=== PATIENT | male | born 1945 | race Caucasian/White ===

== ENCOUNTER 2019-12-30 10:30 | Outpatient (CLI) | payer MEDICARE, SELFPAY ==
--- NOTE | ~2019-12-30 | US_ITS ---
US scrotum doppler INDICATION: Disorder of the scrotum. Palpable lump on testicle for 40 years increasing in size for 6 months. Previous bursectomy. TECHNIQUE: Testicular sonogram utilizing grayscale and color Doppler FINDINGS: The testes are normal in size and appearance. No focal lesions are seen. The right testes measures 4.4 x 2.2 x 3.3 centimeters, and the left testis measures 4.6 x 1.9 x 3 cm. There is normal vascular flow to both testes. The right and left epididymides appear normal. There are bilateral varicoceles. There is a cyst superior to the left epididymis corresponding to the area of palpable concern measuring 2.7 x 1.8 x 1.9 cm, possibly epididymal in origin. IMPRESSION: 1. Bilateral varicoceles. 2: 2.7 cm cyst superior to the left epididymis corresponding to the palpable finding, possibly epidi dymal in origin. Reviewed, dictated and finalized at location A. IMPRESSION: 1. Bilateral varicoceles. 2: 2.7 cm cyst superior to the left epididymis corresponding to the palpable f inding, possibly epididymal in origin.
== END 2019-12-30 10:31 | disposition home or self-care (01) ==
PROVIDERS: PCP Internal Medicine; Visit Provider Internal Medicine
DX: N49.2 Inflammatory disorders of scrotum (principal); I86.1 Scrotal varices; N50.3 Cyst of epididymis; D29.4 Benign neoplasm of scrotum; N50.89 Other specified disorders of the male genital organs
CPT/HCPCS: 76870; 93976

== ENCOUNTER 2021-03-22 15:28 | Outpatient (CLI) | payer MEDICARE, SELFPAY ==
--- NOTE | ~2021-03-22 | XR_ITS ---
XR ankle LT min 3V DATE: 03/22/2021 15:47 INDICATION: Left ankle pain TECHNIQUE: 4 views COMPARISON: 11/15/2016 left ankle FINDINGS: Prominent plantar calcaneal enthesopathy. Minimal posterior calcaneal enthesopathy. There is soft tissue swelling of the ankle, greater laterally. No fracture or dislocation of the ankle or disruption of the ankle mortise. No periosteal reaction or bone destruction. IMPRESSION: Soft tissue swelling; no fracture or dislocation or bone destruction Plantar and minimal posterior calcaneal enthesopathy Reviewed, dictated and finalized at location A. IMPRESSION: Soft tissue swelling; no fracture or dislocation or bone destructio n Plantar and minimal posterior calcaneal enthesopathy
== END 2021-03-22 15:29 | disposition home or self-care (01) ==
LOC: ANHIMG 15:33
PROVIDERS: PCP Internal Medicine; Visit Provider Clinical Nurse Specialist
DX: M25.572 Pain in left ankle and joints of left foot (principal); M79.89 Other specified soft tissue disorders
CPT/HCPCS: 73610

== ENCOUNTER 2021-05-17 13:59 | Emergency (ER) | payer MEDICARE, SELFPAY ==
--- NOTE | ~2021-05-17 | XR_ITS ---
EXAMINATION: XR lumbar spine 2-3V EXAM DATE: 05/17/2021 14:35 INDICATION: FALL onto parking curb this p.m.;low back pain . Initial encounter. TECHNIQUE: Lumber spine frontal, lateral, lateral L5-S1 projections for interpretation. Comparison is made to prior examination from 10/10/2017. FINDINGS: Mild to moderate lumbar dextroscoliosis. Mild diffuse loss of lumbar vertebral body height s without acute fracture line identified. There is severe disc disease at L4-5 and L5-S1, moderate to severe at L3-4 and moderate at L2-3 and T12-L1. Sacrum, sacroiliac joints, sacral arcuate lines are intact. Severe lumbar facet arthropathy. Large lumbar endplate osteophytes. Moderate abdominal aorti c arterial sclerosis. Possible left nephrolithiasis. IMPRESSION: 1. Severe lumbar spondylosis. 2. Mild to moderate dextroscoliosis. 3. Possible left nephrolithiasis. Reviewed, dictated and finalized at location B.
--- NOTE | ~2021-05-17 | XR_ITS ---
EXAMINATION: XR sacrum coccyx min 2V EXAM DATE: 05/17/2021 14:37 INDICATION: FALL onto parking curb this p.m.;sacral/coccygeal pain. TECHNIQUE: Frontal, lateral projections of the sacrum and coccyx. Comparison made to prior study fr om 2018, however this does exclude the tip of the sacrum. FINDINGS: On the lateral projection there is oblique lucency through the S5 segment with some offset , however this does appear corticated, would favor that this is chronic over acute finding but there are no prior studies including this portion of anatomy for evaluating interval change. The sacral arc uate lines are intact. There is advanced lumbar spondylosis and mild to moderate dextroscoliosis. The re are arterial calcifications, arteriosclerosis. IMPRESSION: 1. Oblique lucency through S5; can't exclude acute fracture. Reviewed, dictated and finalized at location B.
[2021-05-17 14:04] VITALS: BP 117/80; PULSE 54; RESP 16; TEMP 37; O2SAT 96
[2021-05-17 14:09] VITALS: BP 117/80; PULSE 54; RESP 16; TEMP 37; O2SAT 96
--- NOTE | 2021-05-17 14:12 | ED.BACK ---
HPI - Back Pain/Injury General Chief Complaint: Back Pain/Injury Stated Complaint: fall/tailbone/back injuries Time Seen by Provider: 05/17/21 14:50 Source: patient and RN notes reviewed Mode of arrival: ambulatory Limitations: no limitations History of Present Illness HPI Narrative: 75-year-old male presents with concern for dural low back pain, coccyx pain. Reports 2 hours prior to arrival he was putting an item in his car in the parking lot of a store when he fell backward landing on his buttocks onto a concrete curb. He reports low back pain when standing, tailbone pain when sitting. He denies any loss of bowel or bladder function, perianal anesthesia, numbness or tingling in any extremity. Denies weakness in any extremity. He denies intervention. MD elicited complaint: back injury Related Data Home Medications Medication Instructions Recorded Confirmed cannabidiol 3 mg PO BID 09/02/19 05/17/21 hydrochlorothiazide 25 mg PO DAILY 09/02/19 05/17/21 lisinopril 40 mg PO DAILY 09/02/19 05/17/21 amlodipine 10 mg tablet 10 mg PO DAILY 09/07/19 05/17/21 Allergies Allergy/AdvReac Type Severity Reaction Status Date / Time Chlorine Allergy Intermediate SWELLING, Uncoded 05/17/21 14:05 SOB Review of Systems Review of Systems: CONSTITUTIONAL: Denies malaise, chills, sweats, or fever. CARDIOVASCULAR: Denies chest pain, palpitations, or edema. RESPIRATORY: Denies cough or dyspnea. SKIN: Denies lacerations, abrasions, redness, bruising MUSCULOSKELETAL: Reports low back pain, cough next pain NEUROLOGIC: Denies numbness, weakness All systems reviewed & are unremarkable except as noted in HPI and below PMFSH Past Medical History Medical History (Updated 05/17/21 @ 15:24 by Melania Mayer NP) Asthma Benign colon polyp Gout Hyperlipidemia Hypertension Measles Mumps Obesity Osteoarthritis Peptic ulcer Pre-diabetes Hemoglobin A1c was 6.3 09/02/2019. Proteinuria Solitary pulmonary nodule Surgical History Surgical History (Updated 12/13/20 @ 15:05 by Suma Woodruff CMA) H/O hand surgery 09/2020 History of left knee replacement September 2011. Status post excision of lipoma Right shoulder. Family History Family History Mother Hypertension Carcinoma of colon Brain bleed Father Family history of coronary artery disease Hypertension Gastric artery aneurysm Sibling Family history of coronary artery disease Hypertension Acute myocardial infarction Renal failure Diabetes mellitus Other Family history of arthritis Family history of cardiovascular disease Family history of kidney disease Social History Social History Social History: The patient lives in [place]. He lives at home with his Kiya. 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 He quit in 1999. He used to be a heavy drinker as well but has abstained since 1996. Smoking status: Former smoker Tobacco type: cigarettes Second hand tobacco smoke exposure: Yes Smoking end date: 09/01/99 Alcohol intake: never Comments At time of signature, agree with nursing past medical, surgical, social and family history. There is no relevant family history pertinent to the presenting complaint Exam Narrative: GENERAL: Well-appearing, well-nourished, and in no acute distress. HEAD: Normocephalic, atraumatic. EYES: PERRLA and EOMI. NECK: Supple. No lymphadenopathy. CHEST: Clear to auscultation. No respiratory distress. HEART: Regular rate and rhythm. Distal pulses palpable and equal, cap refill <3 seconds ABDOMEN: Soft, nontender, nondistended, normal active bowel sounds, no palpable or pulsatile masses. No CVA tenderness MUSCULOSKELETAL: Normal range of motion and strength in all extremities; 5/5 strength with hip flexion
== END 2021-05-17 15:30 | disposition home or self-care (01) ==
PROVIDERS: Emergency Provider Nurse Practitioner; PCP Internal Medicine
DX: M53.3 Sacrococcygeal disorders, not elsewhere classified (principal); J45.909 Unspecified asthma, uncomplicated; E78.5 Hyperlipidemia, unspecified; I10 Essential (primary) hypertension; Z87.891 Personal history of nicotine dependence
CPT/HCPCS: 72100; 72220; 99213; G0463

== ENCOUNTER 2021-12-25 15:33 | Outpatient (CLI) | payer MEDICARE, SELFPAY ==
--- NOTE | ~2021-12-25 | XR_ITS ---
XR chest 2V DATE: 12/25/2021 15:47 INDICATION: Nicotine dependence. Smoker. Asthma. TECHNIQUE: PA and lateral views COMPARISON: 11/23/2018 PA and lateral chest FINDINGS: Moderate bilateral hyperinflation consistent with obstructive airways disease. No pulmonary infiltrate or consolidation, pleural effusion or pulmonary vascular congestion or pneumo thorax. Normal heart size. No hilar or mediastinal enlargement. There is thoracic aortic arch and descending thoracic aortic calcification. IMPRESSION: Moderate hyperinflation consistent with obstructive airways disease No active cardiopulmonary disease Aortic atherosclerosis Reviewed, dictated and finalized at location A.
== END 2021-12-25 15:34 | disposition home or self-care (01) ==
PROVIDERS: PCP Internal Medicine; Visit Provider Nurse Practitioner
DX: Z87.891 Personal history of nicotine dependence (principal); I70.0 Atherosclerosis of aorta; R91.8 Other nonspecific abnormal finding of lung field
CPT/HCPCS: 71046

== ENCOUNTER 2022-02-11 01:35 | Day surgery (SDC) | payer MEDICARE, SELFPAY ==
[2022-01-22 14:11] VITALS: BMI 34.8
--- NOTE | 2022-02-09 11:04 | PM.HPGS ---
History of Present Illness History of Present Illness Consent: Risks, benefits, and alternatives have been discussed and questions answered. Patient agrees to proceed with procedure. Chief complaint: hx of colon polyps Narrative: Nigel Starks is a 76 year old male with a history of polyps was referred today for colon cancer screening. Review of Systems Review of Systems: All systems reviewed & are unremarkable except as noted in HPI and below PMFSH Past Medical History Medical History Asthma Benign colon polyp Gout Hyperlipidemia Hypertension Measles Mumps Obesity Osteoarthritis Peptic ulcer Pre-diabetes Hemoglobin A1c was 6.3 09/02/2019. Proteinuria Solitary pulmonary nodule Surgical History Surgical History H/O hand surgery 09/2020 History of left knee replacement September 2011. Status post excision of lipoma Right shoulder. Family History Family History Mother Hypertension Carcinoma of colon Brain bleed Father Family history of coronary artery disease Hypertension Gastric artery aneurysm Sibling Family history of coronary artery disease Hypertension Acute myocardial infarction Renal failure Diabetes mellitus Other Family history of arthritis Family history of cardiovascular disease Family history of kidney disease Social History Social History Social History: The patient lives in [place]. He lives at home with his Kiya. 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 He quit in 1999. He used to be a heavy drinker as well but has abstained since 1996. Smoking packs per day: 3 Smoking cigarettes per day: 60.0 Years smoked: 47 Smoking pack-years: 141.00 Smoking status: Former smoker Tobacco type: cigarettes Second hand tobacco smoke exposure: Yes Smoking end date: 09/01/99 Alcohol intake: never Substance use: current Substance use type: marijuana Living arrangements: with family Spiritual care concerns: No Meds Home Medications and Allergies Home Medications Medication Instructions Recorded Confirmed Type cannabidiol 100 mg/mL oral solution 3 mg PO BID 09/02/19 02/11/22 History hydrochlorothiazide 25 mg tablet 25 mg PO DAILY 09/02/19 02/11/22 History lisinopril 40 mg tablet 40 mg PO DAILY 09/02/19 02/11/22 History amlodipine 10 mg tablet 10 mg PO DAILY 09/07/19 02/11/22 History simvastatin 20 mg tablet 20 mg PO HS #90 tabs 01/09/21 02/11/22 Rx albuterol sulfate 90 mcg/actuation 1 puff inhalation Q4H PRN 06/14/21 02/11/22 Rx aerosol inhaler shortness of breath or wheezing #8.5 grams allopurinol 100 mg tablet 100 mg PO DAILY #90 tabs 11/19/21 02/11/22 Rx Allergies Allergy/AdvReac Type Severity Reaction Status Date / Time Chlorine Allergy Intermediate SWELLING, Uncoded 02/11/22 08:53 SOB Exam Resp: Auscultation: clear to auscultation bilaterally Cardio: Rate: regular rate Rhythm: regular rhythm GI: GI Palp: Yes Soft to palpation and No Tenderness to palpation present (GI) Assessment and Plan Assessment and plan (1) Screening for colon cancer: Code(s): Z12.11 - Encounter for screening for malignant neoplasm of colon Status: Acute Assessment and Plan: Colonoscopy with possible biopsy or polypectomy or cautery or injection of substances.
[2022-02-11 08:54] VITALS: BP 124/66; PULSE 64; RESP 20; TEMP 36.1; O2SAT 95
[2022-02-11] MEDS: LACTATED RINGERS 1,000 ML 150 ML IV CONT (09:04)
--- NOTE | 2022-02-11 09:16 | WPDANESEPPF ---
Anes - Initial Pre Proc Eval Procedure: Operation Date: 02/11/22 10:00 Proposed Procedures p Screening Colonoscopy - Joel Wagner MD Date/Time: 02/11/22 09:16 Surgeon: Joel Wagner MD Pre Op Diagnosis: hx of colon polyps Patient Data Age: 76 Gender: M Height: 1.75 m Weight: 107 kg Last Vital Signs Temp 36.1 C L 02/11/22 08:54 Pulse 64 02/11/22 08:54 Resp 20 02/11/22 08:54 BP 124/66 02/11/22 08:54 Pulse Ox 95 02/11/22 08:54 O2 Del Method Room Air 02/11/22 08:54 Allergies Allergy/AdvReac Type Severity Reaction Status Date / Time Chlorine Allergy Intermediate SWELLING, Uncoded 02/11/22 08:53 SOB Home Medications Medication Instructions Recorded Confirmed Type cannabidiol 100 mg/mL oral solution 3 mg PO BID 09/02/19 02/11/22 History hydrochlorothiazide 25 mg tablet 25 mg PO DAILY 09/02/19 02/11/22 History lisinopril 40 mg tablet 40 mg PO DAILY 09/02/19 02/11/22 History amlodipine 10 mg tablet 10 mg PO DAILY 09/07/19 02/11/22 History simvastatin 20 mg tablet 20 mg PO HS #90 tabs 01/09/21 02/11/22 Rx albuterol sulfate 90 mcg/actuation 1 puff inhalation Q4H PRN 06/14/21 02/11/22 Rx aerosol inhaler shortness of breath or wheezing #8.5 grams allopurinol 100 mg tablet 100 mg PO DAILY #90 tabs 11/19/21 02/11/22 Rx Patient hx anesthesia problems: none Family hx anesthesia problems: none Results Review: All pre-operative results and documents have been reviewed as part of the pre-operative evaluation. [facility] Past Medical History Medical History Asthma Benign colon polyp Gout Hyperlipidemia Hypertension Measles Mumps Obesity Osteoarthritis Peptic ulcer Pre-diabetes Hemoglobin A1c was 6.3 09/02/2019. Proteinuria Solitary pulmonary nodule Surgical History Surgical History H/O hand surgery 09/2020 History of left knee replacement September 2011. Status post excision of lipoma Right shoulder. Family History Family History Mother Hypertension Carcinoma of colon Brain bleed Father Family history of coronary artery disease Hypertension Gastric artery aneurysm Sibling Family history of coronary artery disease Hypertension Acute myocardial infarction Renal failure Diabetes mellitus Other Family history of arthritis Family history of cardiovascular disease Family history of kidney disease Social History Social History (Updated 12/19/21 @ 14:58 by Suma Woodruff [facility]) Social History: The patient lives in [place]. He lives at home with his Kiya. 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 He quit in 1999. He used to be a heavy drinker as well but has abstained since 1996. Smoking packs per day: 3 Smoking cigarettes per day: 60.0 Years smoked: 47 Smoking pack-years: 141.00 Smoking status: Former smoker Tobacco type: cigarettes Second hand tobacco smoke exposure: Yes Smoking end date: 09/01/99 Alcohol intake: never Substance use: current Substance use type: marijuana Living arrangements: with family Spiritual care concerns: No Anes - Eval Final PreProcedure Day of Procedure 02/11/22 09:16 Patient weight: obese Heart: regular rate and rhythm Lungs: clear to auscultation and normal air movement Airway: Mallampati scale class II Neurological: alert and oriented Last oral intake: >/= 8 hours ASA classification: III Emergent: no Anesthetic plan: proceed Anesthesia type and monitoring: general GIVS Results Review: All pre-operative results and documents have been reviewed as part of the pre-operative evaluation. Informed Consent: The patient's anesthetic plan and its attendant risks and benefits were discussed with the patien
[2022-02-11 10:20] VITALS: BP 104/65; PULSE 64; RESP 25; O2SAT 95
[2022-02-11 10:30] VITALS: BP 118/70; PULSE 60; RESP 24; O2SAT 96
[2022-02-11 10:40] VITALS: BP 130/65; PULSE 66; RESP 25; O2SAT 99
== END 2022-02-11 10:48 | disposition home or self-care (01) ==
PROVIDERS: PCP Internal Medicine; Visit Provider Internal Medicine Gastroenterology
PROC: 0DJD8ZZ Inspection of Lower Intestinal Tract, Via Natural or Artificial Opening Endoscopic (ICD-10-PCS; CPT 45378; principal; 2022-02-11 10:00)
DX: Z12.11 Encounter for screening for malignant neoplasm of colon (principal); K57.30 Diverticulosis of large intestine without perforation or abscess without bleeding; D12.3 Benign neoplasm of transverse colon; D12.8 Benign neoplasm of rectum; I10 Essential (primary) hypertension; E78.5 Hyperlipidemia, unspecified; R73.03 Prediabetes; M10.9 Gout, unspecified; J45.909 Unspecified asthma, uncomplicated; Z87.11 Personal history of peptic ulcer disease; Z79.51 Long term (current) use of inhaled steroids; Z87.891 Personal history of nicotine dependence; E66.9 Obesity, unspecified; Z68.34 Body mass index [BMI] 34.0-34.9, adult
CPT/HCPCS: 45385; 88305; J2704; J7120

== ENCOUNTER 2022-08-29 11:55 | Emergency (ER) | payer MEDICARE, SELFPAY ==
--- NOTE | 2022-08-29 | ECG_ITS ---
Measurements Intervals [place] Rate: 91 P: [place]: 0 QRS: -25 QRSD: 147 T: 38 QT: 384 QTc: 475 Interpretive Statements SINUS RHYTHM FREQUENT ATRIAL PREMATURE COMPLEXES RIGHT BUNDLE BRANCH BLOCK BASELINE ARTIFACT- I, II, III, AVR, AVL, AVF, V1 ABNORMAL ECG NO PREVIOUS ECG AVAILABLE FOR COMPARISON Electronically Signed On 09-03-2022 12:47:20 SPRAY RIG OPERATOR by Michael Nowak D.O.
[2022-08-29 12:02] VITALS: BP 134/67; PULSE 96; RESP 21; TEMP 37.7; O2SAT 94
--- NOTE | 2022-08-29 12:03 | ED.URI ---
HPI - URI/Sore Throat General Chief Complaint: Shortness of Breath/Dyspnea Stated Complaint: congestion,drainage,cough,shortness of breath Time Seen by Provider: 08/29/22 12:10 Source: patient, RN notes reviewed and old records reviewed Mode of arrival: ambulatory Limitations: no limitations History of Present Illness HPI Narrative: 77-year-old male presents to the [facility] with cough, congestion, shortness of breath and chest pressure. Patient states August 17 he has had a cold. Was starting to feel better went to work on the symptoms have just been getting worse since then. Bilateral lower extremity edema, shortness of breath. Reports chest tightness. States that he has trouble catching his breath. Pertinent past history: asthma and seasonal allergies Treatments prior to arrival: none Related Data Home Medications Medication Instructions Recorded Confirmed cannabidiol 100 mg/mL oral solution 3 mg PO BID 09/02/19 07/12/22 hydrochlorothiazide 25 mg tablet 25 mg PO DAILY 09/02/19 07/12/22 amlodipine 10 mg tablet 10 mg PO DAILY 09/07/19 07/12/22 Allergies Allergy/AdvReac Type Severity Reaction Status Date / Time Chlorine Allergy Intermediate SWELLING, Uncoded 08/29/22 12:38 SOB Review of Systems Review of Systems: All systems reviewed & are unremarkable except as noted in HPI and below Constitutional: Constitutional: Reports no additional constitutional complaints Eyes: Eyes: Reports no additional eye complaints ENT: Reports as per HPI and Reports nasal congestion Cardiovascular: Cardiovascular: Reports as per HPI, Reports chest pain, Reports rapid heart rate and Reports dyspnea Respiratory: Respiratory: Reports as per HPI, Reports chest congestion, Reports cough, Reports dyspnea and Denies wheezing Gastrointestinal: Gastrointestinal: Reports no additional gastrointestinal complaints, Denies abdominal pain, Denies nausea and Denies vomiting Musculoskeletal: Musculoskeletal: Reports no additional musculoskeletal complaints Integumentary/Breasts: Skin/Breast: Reports system reviewed and no additional complaints, except as docu Neurologic: Reports system reviewed and no additional complaints, except as documented Psychiatric: Psychiatric: Reports no additional psychiatric complaints Allergic/Immunologic: Allergic/Immunologic: Reports no additional allergic/immunologic complaints [facility] Past Medical History Medical History Asthma Benign colon polyp Gout Hyperlipidemia Hypertension Measles Mumps Obesity Osteoarthritis Peptic ulcer Pre-diabetes Hemoglobin A1c was 6.3 09/02/2019. Proteinuria Solitary pulmonary nodule Surgical History Surgical History H/O hand surgery 09/2020 History of left knee replacement September 2011. Status post excision of lipoma Right shoulder. Family History Family History Mother Hypertension Carcinoma of colon Brain bleed Father Family history of coronary artery disease Hypertension Gastric artery aneurysm Sibling Family history of coronary artery disease Hypertension Acute myocardial infarction Renal failure Diabetes mellitus Other Family history of arthritis Family history of cardiovascular disease Family history of kidney disease Social History Social History Social History: The patient lives in [place]. He lives at home with his Kiya. 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 He quit in 1999. He used to be a heavy drinker as well but has abstained since 1996. Smoking packs per day: 3 Smoking cigarettes per day: 60.0 Years smoked: 47 Smoking pack-years: 141.00 Smoking status: Former smoker
== END 2022-08-29 12:40 | disposition short-term general hospital (02) ==
PROVIDERS: Emergency Provider Nurse Practitioner; PCP Internal Medicine
DX: I48.91 Unspecified atrial fibrillation (principal); Z87.891 Personal history of nicotine dependence; J45.909 Unspecified asthma, uncomplicated; M10.9 Gout, unspecified; E78.5 Hyperlipidemia, unspecified; I10 Essential (primary) hypertension; M19.90 Unspecified osteoarthritis, unspecified site; R73.03 Prediabetes; E66.9 Obesity, unspecified; Z68.32 Body mass index [BMI] 32.0-32.9, adult; Z96.652 Presence of left artificial knee joint
CPT/HCPCS: 93005; 99215; G0463

== ENCOUNTER 2022-08-29 13:15 | Inpatient (IN) | payer MEDICARE, SELFPAY ==
[2022-08-29] VITALS (29 sets, daily range): BP systolic 107–139; BP diastolic 53–76; PULSE 69–104; RESP 15–28; TEMP 36.7–37.1; O2SAT 89–99
--- NOTE | ~2022-08-29 | CT_ITS ---
EXAMINATION: CTA chest PE protocol DATE: 08/29/2022 14:26 INDICATION: Shortness of breath TECHNIQUE: Computed tomography angiography (CTA) of the chest was performed with 100 mL Omnipaque-350 intravenous contrast timed to evaluate the pulmonary arteries. Coronal maximum intensity projection 3D-reconstructions were created by the technologist. The dose-length product (DLP) was 635.46 mGy-cm. Automated exposure control and iterative reconstruction technique were employed. COMPARISON: 10/13/2018 FINDINGS: The pulmonary arteries are well-opacified. No pulmonary embolism is identified. There is mi ld bronchial wall thickening in medial aspect of the right lower lobe. There are minimal dependent ai rspace opacities in the right lower lobe. No pleural effusion or pneumothorax. There is mild right hi lar lymphadenopathy. The heart size is normal. There is mild emphysema. There is mild thoracic spondy losis. There are small cysts of the liver. Cysts of the partially visualized kidneys measure up to 2. 8 cm on the left. IMPRESSION: 1. No pulmonary embolus identified. 2. Bronchial wall thickening and airspace opacities of the right lower lobe, likely bronchiolitis and pneumonia. 3. Mild right hilar lymphadenopathy, likely reactive. 4. Mild emphysema. Reviewed, dictated and finalized at location L. LOPMENT VICE PRESIDENT IMPRESSION: 1. No pulmonary embolus identified. 2. Bronchial wall thickening and airspace opacities of the right lower lobe, li ray bronchiolitis and pneumonia. 3. Mild right hilar lymphadenopathy, likely reactive. 4. Mild emphysema.
--- NOTE | ~2022-08-29 | XR_ITS ---
Clinical Indication: Cough, shortness of breath PA and lateral views of the chest: Comparison: 12/25/2021 Findings: The lungs are clear, without evidence of focal consolidation or pleural effusion. Possible COPD. Cardiomediastinal silhouette is within normal limits. Bones and soft tissues are unremarkable. Impression: Clear lungs. Possible COPD. Reviewed, dictated and finalized at location . HOLOGY CLINICIAN Impression: Clear lungs. Possible COPD.
--- NOTE | 2022-08-29 13:19 | ECG_ITS ---
Measurements Intervals [place] Rate: 89 P: 31 OR: 176 QRS: -42 QRSD: 151 T: 41 QT: 393 QTc: 479 Interpretive Statements SINUS RHYTHM WITH OCCASIONAL VENTRICULAR PREMATURE COMPLEXES WITH OCCASIONAL SUPRAVENTRICULAR PREMATURE COMPLEXES MARKED LEFT AXIS DEVIATION [QRS AXIS < -30] RIGHT BUNDLE BRANCH BLOCK [120+ ms QRS DURATION, UPRIGHT V1, 40+ ms S IN I/aVL/V4/V5/V6] NO PREVIOUS ECG AVAILABLE FOR COMPARISON Electronically Signed On 08-29-2022 15:03:41 BALANCE WHEEL SCREW HOLE TAPPER by Jin GUNDERSON
--- NOTE | 2022-08-29 13:19 | ED.GENADULT ---
HPI - General Adult General Chief complaint: Shortness of Breath/Dyspnea Stated complaint: SOB, MURPHY, ?new onset afib Source: RN notes reviewed History of Present Illness HPI narrative: Patient presents emergency department via EMS from urgent care for shortness of breath. Patient states he has been feeling sick for the past 10 days. States has had a cough this been productive of yellow sputum. States has been feeling short of breath with the symptoms as well as having some subjective fevers he states has been having night sweats at night but is not actually measured his temperature. He gone to the urgent care today area and there is concerned that he had had atrial fibrillation and he was sent to the emergency department for further evaluation. He denies any chest pain he denies any abdominal pain nausea vomiting states he did have 1 episode of diarrhea 10 days ago but none since that time states he does have a history of asthma states he does have swelling in his legs which is chronic Related Data Home Medications Medication Instructions Recorded Confirmed cannabidiol 100 mg/mL oral solution 3 mg PO BID 09/02/19 08/29/22 hydrochlorothiazide 25 mg tablet 25 mg PO DAILY 09/02/19 08/29/22 amlodipine 10 mg tablet 10 mg PO DAILY 09/07/19 08/29/22 Allergies Allergy/AdvReac Type Severity Reaction Status Date / Time Chlorine Allergy Intermediate SWELLING, Uncoded 08/29/22 12:38 SOB Review of Systems Review of Systems: Gen.: Report subjective fevers denies chills Eyes: Denies eye pain or visual change ENT: Denies congestion Respiratory: See HPI CV: Denies chest pain or palpitations GI: Denies abdominal pain nausea, emesis or diarrhea Musculoskeletal: Denies back pain or muscle pain Neuro: Denies numbness, tingling, weakness or focal weakness Skin: Denies rash Except as documented, all other systems reviewed and negative [facility] Past Medical History Medical History Asthma Benign colon polyp Gout Hyperlipidemia Hypertension Measles Mumps Obesity Osteoarthritis Peptic ulcer Pre-diabetes Hemoglobin A1c was 6.3 09/02/2019. Proteinuria Solitary pulmonary nodule Surgical History Surgical History H/O hand surgery 09/2020 History of left knee replacement September 2011. Status post excision of lipoma Right shoulder. Family History Family History Mother Hypertension Carcinoma of colon Brain bleed Father Family history of coronary artery disease Hypertension Gastric artery aneurysm Sibling Family history of coronary artery disease Hypertension Acute myocardial infarction Renal failure Diabetes mellitus Other Family history of arthritis Family history of cardiovascular disease Family history of kidney disease Social History Social History Social History: The patient lives in [place]. He lives at home with his Kiya. 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 He quit in 1999. He used to be a heavy drinker as well but has abstained since 1996. Smoking packs per day: 3 Smoking cigarettes per day: 60.0 Years smoked: 47 Smoking pack-years: 141.00 Smoking status: Former smoker Tobacco type: cigarettes Second hand tobacco smoke exposure: Yes Smoking end date: 09/01/99 Alcohol intake: never Substance use: current Substance use type: marijuana Spiritual care concerns: No Exam Narrative: APPEARANCE: No acute distress, nontoxic, resting in bed EYES: EOMI HEENT: Normocephalic, atraumatic, OMM RESPIRATORY: No respiratory distress Clear to auscultation bilaterally with no rhonchi wheezing or rales. CARDIOVASCULAR: Regular rate and rhythm without
[2022-08-29 13:53] LABS: Basophils Absolute Auto 0.1 K/mm3 (0.0-0.1); Basophils Percent Auto 0.4 % (0.2-1.2); Eosinophils Absolute Auto 0.1 K/mm3 (0-0.3); Eosinophils Percent Auto 0.8 % (0-4.4); Hematocrit 41.4 % (42.0-52.0); Hemoglobin 13.8 g/dL (14.0-18.0); Immature Granulocyte Percent A 0.6 % (0-0.5); Lymphocytes Absolute Auto 1.01 K/mm3 (0.9-3.2); Lymphocytes Percent Auto 6.5 % (18.3-44.2); Mean Corpuscular HGB Conc 33.3 g/dl (32-36); Mean Corpuscular Hemoglobin 30.5 pg (26-34); Mean Corpuscular Volume 91.4 fl (80-100); Monocytes Absolute Auto 1.7 K/mm3 (0.1-0.6); Monocytes Percent Auto 11.1 % (2.6-8.5); Neutrophils Absolute Auto 12.6 K/mm3 (1.3-6.7); Neutrophils Percent Auto 80.6 % (45.5-73.1); Platelet Count Result 248 k/mm3 (150-375); Red Blood Count 4.53 M/mm3 (4.6-6.20); Red Cell Distribution Width 14.5 % (11.5-14.5); White Blood Count 15.6 K/mm3 (4.5-10.0)
[2022-08-29 14:08] LABS: INR 1.2; Prothrombin Time 14.5 Seconds (11.1-14.7)
[2022-08-29 14:09] LABS: Alanine Aminotransferase 19 U/L (6-50); Albumin Level 4.3 g/dL (3.5-5.1); Alkaline Phosphatase 124 U/L (38-126); Anion Gap 8 mmol/L (8-16); Aspartate Amino Transferase 24 U/L (17-59); Bilirubin,Total 1.2 mg/dL (0.2-1.3); Blood Urea Nitrogen 30 mg/dL (9-20); Carbon Dioxide 34 mmol/L (22-30); Chloride 99 mmol/L (98-107); Estimated CRCL calculation 46 ml/min; Estimated Glomerular Filt Rate 45; Glucose 122 mg/dL (65-110); Partial Thromboplastin Time 33.3 SECONDS (22.3-36.8); Potassium 3.9 mmol/L (3.4-5.0); Sodium 141 mmol/L (137-145)
[2022-08-29 14:22] LABS: NT Pro B Type Natriuretic Pept 265 pg/mL (5-100); Troponin I 0.026 ng/mL (0.000-0.034)
[2022-08-29 14:32] LABS: Influenza A QL RT-PCR Negative (Negative); Influenza B QL RT-PCR Negative (Negative); SARS-CoV-2 RNA PCR Negative
[2022-08-29] MEDS: SODIUM CHLORIDE 0.9% IV 1,000 ML 999 ML IV CONT (15:05)
[2022-08-29] MEDS: IPRATROPIUM BR 0.02% INH SOLN 0.5 MG/2.5 ML VIAL INHALATION ×2 (15:23→20:14)
[2022-08-29] MEDS: ALBUTEROL SULFATE NEB 2.5 MG/3 ML INH 5 MG INHALATION (15:23)
[2022-08-29 16:01] LABS: Lactic Acid Reflex 1.3 mmol/L (0.7-2.0)
--- NOTE | 2022-08-29 16:53 | PM.IMHP ---
H&P: HPI History of Present Illness Date/Time: 08/29/22 16:53 Chief Complaint: Shortness of breath Narrative: This is a 77 year old male patient who has a history of asthma came to the emergency room from Urgent Care today. The patient stated he has been sick for 10 days. He has had a cough of yellow productive sputum and has been short of breath with exertion. He had a subjective tactile fever and night sweats. The patient was sent here from urgent care due to his atrial fibrillation. The patient had 1 episode of diarrhea 10 days ago. He has had a decreased appetite. His white count was 15.6. H&H is 13.8 and 41.4. The patient was given azithromycin and Rocephin and nebulizer treatment. He was also given IV fluids. The patient is being admitted to observation status on the date of service of 08/29/2022. Review of Systems Review of Systems: See HPI [facility] Past Medical History Medical History Asthma Benign colon polyp Chronic back pain Gout Hyperlipidemia Hypertension Measles Mumps Obesity Osteoarthritis Peptic ulcer Pre-diabetes Hemoglobin A1c was 6.3 09/02/2019. Proteinuria Solitary pulmonary nodule Surgical History Surgical History (Updated 08/29/22 @ 19:37 by Kiley Silveira NP) H/O hand surgery 09/2020 H/O rectal polypectomy History of left knee replacement September 2011. History of right knee joint replacement Status post excision of lipoma Right shoulder. Family History Family History Mother Hypertension Carcinoma of colon Brain bleed Father Family history of coronary artery disease Hypertension Gastric artery aneurysm Sibling Family history of coronary artery disease Hypertension Acute myocardial infarction Renal failure Diabetes mellitus Other Family history of arthritis Family history of cardiovascular disease Family history of kidney disease Social History Social History (Updated 08/29/22 @ 19:30 by Kiley Silveira NP) Social History: The patient lives in [place]. He lives at home with his Kiya. 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 He quit in 1999. He used to be a heavy drinker as well but has abstained since 1996. He has 1 daughter. Code status full code Smoking packs per day: 3 Smoking cigarettes per day: 60.0 Years smoked: 47 Smoking pack-years: 141.00 Smoking status: Former smoker Tobacco type: cigarettes Second hand tobacco smoke exposure: Yes Smoking end date: 09/01/99 Alcohol intake: never Substance use: current Substance use type: marijuana Spiritual care concerns: No Meds Home Medications and Allergies Home Medications Medication Instructions Recorded Confirmed Type cannabidiol 100 mg/mL oral solution 3 mg PO BID 09/02/19 08/29/22 History hydrochlorothiazide 25 mg tablet 25 mg PO DAILY 09/02/19 08/29/22 History amlodipine 10 mg tablet 10 mg PO DAILY 09/07/19 08/29/22 History albuterol sulfate 90 mcg/actuation 1 puff inhalation Q4H PRN 06/14/21 08/29/22 Rx aerosol inhaler shortness of breath or wheezing #8.5 grams simvastatin 20 mg tablet See Rx Instructions .Route 02/11/22 08/29/22 Rx .COMPLEX #90 tabs allopurinol 100 mg tablet 100 mg PO DAILY #90 tabs 05/14/22 08/29/22 Rx lisinopril 40 mg tablet 40 mg PO DAILY #90 tabs 05/31/22 08/29/22 Rx Allergies Allergy/AdvReac Type Severity Reaction Status Date / Time Chlorine Allergy Intermediate SWELLING, Uncoded 08/29/22 12:38 SOB Vital Signs Vital Signs - 24 hr 08/29/22 13:41 08/29/22 13:44 08/29/22 14:11 Temperature 36.8 C Pulse Rate 89 82 Respiratory Rate 22 H Blood Pressure 139/63 Pulse Oximetry 96 96 Oxygen Delivery Nasal Cannula Nasal Cannula Oxygen Flow Rate 2 2 08/29/22 15:24 08/29/22 1
[2022-08-29] MEDS: ALBUTEROL SULFATE NEB 2.5 MG/3 ML INH INHALATION (20:14)
[2022-08-30] VITALS (12 sets, daily range): BP systolic 106–121; BP diastolic 55–65; PULSE 68–77; RESP 16–18; TEMP 36.8–38.1; O2SAT 90–94
[2022-08-30] MEDS: SODIUM CHLORIDE 0.9% IV 1,000 ML 100 ML IV CONT ×2 (00:18→09:54)
[2022-08-30] MEDS: ALBUTEROL SULFATE NEB 2.5 MG/3 ML INH INHALATION ×4 (02:20→20:40)
[2022-08-30] MEDS: IPRATROPIUM BR 0.02% INH SOLN 0.5 MG/2.5 ML VIAL INHALATION ×4 (02:21→20:41)
[2022-08-30 06:54] LABS: Basophils Absolute Auto 0.1 K/mm3 (0.0-0.1); Basophils Percent Auto 0.5 % (0.2-1.2); Eosinophils Absolute Auto 0.1 K/mm3 (0-0.3); Eosinophils Percent Auto 0.7 % (0-4.4); Hematocrit 34.4 % (42.0-52.0); Hemoglobin 11.5 g/dL (14.0-18.0); Immature Granulocyte Absolute 0.07 K/mm3 (0.00-0.031); Immature Granulocyte Percent A 0.6 % (0-0.5); Lymphocytes Absolute Auto 1.13 K/mm3 (0.9-3.2); Lymphocytes Percent Auto 10.3 % (18.3-44.2); Mean Corpuscular HGB Conc 33.4 g/dl (32-36); Mean Corpuscular Hemoglobin 29.7 pg (26-34); Mean Corpuscular Volume 88.9 fl (80-100); Mean Platelet Volume 11.4 fl (7.4-10.4); Monocytes Absolute Auto 1.5 K/mm3 (0.1-0.6); Monocytes Percent Auto 13.6 % (2.6-8.5); Neutrophils Absolute Auto 8.2 K/mm3 (1.3-6.7); Neutrophils Percent Auto 74.3 % (45.5-73.1); Platelet Count Result 216 k/mm3 (150-375); Red Blood Count 3.87 M/mm3 (4.6-6.20); Red Cell Distribution Width 14.2 % (11.5-14.5)
[2022-08-30 07:08] LABS: Alanine Aminotransferase 16 U/L (6-50); Albumin Level 3.4 g/dL (3.5-5.1); Alkaline Phosphatase 89 U/L (38-126); Anion Gap 7 mmol/L (8-16); Aspartate Amino Transferase 21 U/L (17-59); Bilirubin,Total 0.9 mg/dL (0.2-1.3); Blood Urea Nitrogen 26 mg/dL (9-20); Calcium 7.8 mg/dL (8.4-10.2); Carbon Dioxide 30 mmol/L (22-30); Chloride 101 mmol/L (98-107); Estimated CRCL calculation 53 ml/min; Estimated Glomerular Filt Rate 54; Glucose 106 mg/dL (65-110); Hemoglobin A1C 6.3 % (<5.7); Lactate Dehydrogenase 152 U/L (120-246); Magnesium 1.7 mg/dL (1.6-2.3); Potassium 2.8 mmol/L (3.4-5.0); Sodium 138 mmol/L (137-145)
[2022-08-30] MEDS: POTASSIUM CHLORIDE 20 MEQ TABLET 40 MEQ PO ×2 (09:54→16:46)
[2022-08-30] MEDS: MAGNESIUM OXIDE 400 MG TABLET PO (09:54)
[2022-08-30] MEDS: amLODIPine BESYLATE 5 MG TABLET 10 MG PO (09:55)
[2022-08-30] MEDS: allopurinoL 100 MG TABLET PO (09:56)
[2022-08-30] MEDS: SIMVASTATIN 20 MG TABLET PO (09:56)
[2022-08-30] MEDS: ENOXAPARIN 40 MG/0.4 ML SYRINGE SUB-Q (09:56)
[2022-08-30] MEDS: POTASSIUM CHLORIDE INJ 40 MEQ in SODIUM CHLORIDE 0.9% IV 500 ML 130 MEQ IVPB (10:02)
--- NOTE | 2022-08-30 15:17 | PM.IMPN ---
Progress Note: A&P Assessment and Plan (1) Community acquired pneumonia: Code(s): J18.9 - Pneumonia, unspecified organism Status: Acute Assessment and Plan: As per community-acquired pneumonia stewardship with azithromycin Rocephin. -Robitussin -continue nebulizers 08/30/2022 interval history: 77-year-old male presented with shortness of breath is found to have community-acquired pneumonia being treated with ceftriaxone, azithromycin, and bronchodilator, patient states is feeling much better compared to when he arrived, not as short of breath, will continue present management repeat chest x-ray in today, will follow-up blood culture and further recommendation to follow, will have PT OT evaluate the patient. (2) Hyperlipidemia: Qualifiers: Hyperlipidemia type: unspecified Qualified Code(s): E78.5 - Hyperlipidemia, unspecified Code(s): E78.5 - Hyperlipidemia, unspecified Status: Acute Assessment and Plan: -continue with simvastatin (3) Hypertension: Qualifiers: Hypertension type: essential hypertension Qualified Code(s): I10 - Essential (primary) hypertension Code(s): I10 - Essential (primary) hypertension Status: Acute Assessment and Plan: -hold lisinopril and hydrochlorothiazide. Creatinine is now 1.5 and it is typically around 1.3. P.r.n. hydralazine Continue with amlodipine (4) Pre-diabetes: Code(s): R73.03 - Prediabetes Status: Acute Assessment and Plan: Patient is not on any medication. Check A1c. (5) CKD (chronic kidney disease): Qualifiers: Chronic kidney disease stage: stage 3 (moderate) Chronic kidney disease stage 3 subtype: stage 3a (GFR 45-59) Qualified Code(s): N18.31 - Chronic kidney disease, stage 3a Code(s): N18.9 - Chronic kidney disease, unspecified Status: Acute Assessment and Plan: Patient's creatinine is 1.5. GFR is 45 today his last GFR was 49. Patient has had poor oral intake. -will gently hydrate the patient. -I am holding lisinopril and hydrochlorothiazide for tonight. (6) Sacral back pain: Code(s): M53.3 - Sacrococcygeal disorders, not elsewhere classified Status: Acute Assessment and Plan: -the patient takes medical marijuana. Subjective Date/time seen: 08/30/22 15:17 Chief Complaint: Shortness of breath HPI-Narrative: This is a 77 year old male patient who has a history of asthma came to the emergency room from Urgent Care today.? The patient stated he has been sick for 10 days.? He has had a cough of yellow productive sputum and has been short of breath with exertion.? He had a subjective tactile fever and night sweats.? The patient was sent here from urgent care due to his atrial fibrillation.? The patient had 1 episode of diarrhea 10 days ago.? He has had a decreased appetite.? His white count was 15.6.? H&H is 13.8 and 41.4.? The patient was given azithromycin and Rocephin and nebulizer treatment.? He was also given IV fluids.? The patient is being admitted to observation status on the date of service of 08/29/2022. 08/30/2022 interval history: 77-year-old male presented with shortness of breath is found to have community-acquired pneumonia being treated with ceftriaxone, azithromycin, and bronchodilator, patient states is feeling much better compared to when he arrived, not as short of breath, will continue present management repeat chest x-ray in today, will follow-up blood culture and further recommendation to follow, will have PT OT evaluate the patient. Review of Systems Review of Systems: See HPI Exam Narrative: moderately obese Patient is comfortable, NAD HEENT: eyes are clear and none icteric LUNGS: bilateral fair air entry with harsh breath sounds and rhonchi HEART: RR S1S2 ABD: BS+, Soft and nontender Lower extremities: no edema SKIN: nonjaundiced Neuro: grossly intact. Objective Data Vital Signs Vital Signs
--- NOTE | 2022-08-30 15:51 | PC.NURSE ---
provider notified of blood culture results.
[2022-08-30 16:13] LABS: Anion Gap 8 mmol/L (8-16); Blood Urea Nitrogen 25 mg/dL (9-20); Calcium 7.9 mg/dL (8.4-10.2); Carbon Dioxide 29 mmol/L (22-30); Chloride 101 mmol/L (98-107); Estimated CRCL calculation 50 ml/min; Estimated Glomerular Filt Rate 49; Glucose 122 mg/dL (65-110); Potassium 3.3 mmol/L (3.4-5.0); Sodium 138 mmol/L (137-145)
[2022-08-31] VITALS (7 sets, daily range): BP systolic 102–123; BP diastolic 42–60; PULSE 62–81; RESP 16–21; TEMP 36.8–37.2; O2SAT 88–98
[2022-08-31] MEDS: ALBUTEROL SULFATE NEB 2.5 MG/3 ML INH INHALATION ×3 (04:23→14:06)
[2022-08-31] MEDS: IPRATROPIUM BR 0.02% INH SOLN 0.5 MG/2.5 ML VIAL INHALATION ×3 (04:25→14:07)
[2022-08-31] MEDS: SODIUM CHLORIDE 0.9% IV 1,000 ML 100 ML IV CONT ×2 (04:32→16:21)
[2022-08-31 07:53] LABS: Hematocrit 35.3 % (42.0-52.0); Hemoglobin 11.6 g/dL (14.0-18.0); Mean Corpuscular HGB Conc 32.9 g/dl (32-36); Mean Corpuscular Hemoglobin 30.4 pg (26-34); Mean Corpuscular Volume 92.4 fl (80-100); Mean Platelet Volume 11.4 fl (7.4-10.4); Platelet Count Result 223 k/mm3 (150-375); Red Blood Count 3.82 M/mm3 (4.6-6.20); Red Cell Distribution Width 14.4 % (11.5-14.5); White Blood Count 9.4 K/mm3 (4.5-10.0)
[2022-08-31 08:04] LABS: Anion Gap 2 mmol/L (8-16); Blood Urea Nitrogen 20 mg/dL (9-20); Calcium 7.9 mg/dL (8.4-10.2); Carbon Dioxide 29 mmol/L (22-30); Chloride 102 mmol/L (98-107); Estimated CRCL calculation 58 ml/min; Estimated Glomerular Filt Rate 59; Glucose 104 mg/dL (65-110); Magnesium 1.7 mg/dL (1.6-2.3); Potassium 3.9 mmol/L (3.4-5.0); Sodium 133 mmol/L (137-145)
[2022-08-31] MEDS: allopurinoL 100 MG TABLET PO (08:17)
[2022-08-31] MEDS: MAGNESIUM OXIDE 400 MG TABLET PO (08:17)
[2022-08-31] MEDS: ENOXAPARIN 40 MG/0.4 ML SYRINGE SUB-Q (08:17)
[2022-08-31] MEDS: amLODIPine BESYLATE 5 MG TABLET 10 MG PO (08:17)
[2022-08-31] MEDS: SIMVASTATIN 20 MG TABLET PO (08:17)
[2022-08-31] MEDS: LOPERAMIDE HCL 2 MG CAPSULE PO (11:24)
[2022-08-31] MEDS: SACCHAROMYCES BOULARDII 250 MG CAPSULE PO (16:22)
--- NOTE | 2022-08-31 16:50 | PM.IMPN ---
Progress Note: A&P Assessment and Plan (1) Community acquired pneumonia: Code(s): J18.9 - Pneumonia, unspecified organism Status: Acute Assessment and Plan: As per community-acquired pneumonia stewardship with azithromycin Rocephin. -Robitussin -continue nebulizers 08/31/2022 interval history: 77-year-old male presented with shortness of breath is found to have community-acquired pneumonia being treated with ceftriaxone, azithromycin, and bronchodilator, patient states is feeling much better compared to when he arrived, not as short of breath, however today patient had 2-3 loose BM most likely due to abx unlikely C diff, will give probiotics and immodium, will give melatonin for sleep, will continue present management repeat chest x-ray in 2 days, one bottle of blood culture is growing Staphylococcus hominis most likely contamination, will CPM, will continue to monitor and further recommendation to follow, will have PT OT evaluate the patient. (2) Hyperlipidemia: Qualifiers: Hyperlipidemia type: unspecified Qualified Code(s): E78.5 - Hyperlipidemia, unspecified Code(s): E78.5 - Hyperlipidemia, unspecified Status: Acute Assessment and Plan: -continue with simvastatin (3) Hypertension: Qualifiers: Hypertension type: essential hypertension Qualified Code(s): I10 - Essential (primary) hypertension Code(s): I10 - Essential (primary) hypertension Status: Acute Assessment and Plan: -hold lisinopril and hydrochlorothiazide. Creatinine is now 1.5 and it is typically around 1.3. P.r.n. hydralazine Continue with amlodipine (4) Pre-diabetes: Code(s): R73.03 - Prediabetes Status: Acute Assessment and Plan: Patient is not on any medication. Check A1c. (5) CKD (chronic kidney disease): Qualifiers: Chronic kidney disease stage: stage 3 (moderate) Chronic kidney disease stage 3 subtype: stage 3a (GFR 45-59) Qualified Code(s): N18.31 - Chronic kidney disease, stage 3a Code(s): N18.9 - Chronic kidney disease, unspecified Status: Acute Assessment and Plan: Patient's creatinine is 1.5. GFR is 45 today his last GFR was 49. Patient has had poor oral intake. -will gently hydrate the patient. -I am holding lisinopril and hydrochlorothiazide for tonight. (6) Sacral back pain: Code(s): M53.3 - Sacrococcygeal disorders, not elsewhere classified Status: Acute Assessment and Plan: -the patient takes medical marijuana. Subjective Date/time seen: 08/31/22 16:50 08/31/2022 interval history: 77-year-old male presented with shortness of breath is found to have community-acquired pneumonia being treated with ceftriaxone, azithromycin, and bronchodilator, patient states is feeling much better compared to when he arrived, not as short of breath, however today patient had 2-3 loose BM most likely due to abx unlikely C diff, will give probiotics and immodium, will give melatonin for sleep, will continue present management repeat chest x-ray in 2 days, one bottle of blood culture is growing Staphylococcus hominis most likely contamination, will CPM, will continue to monitor and further recommendation to follow, will have PT OT evaluate the patient. Exam Narrative: moderately obese Patient is comfortable, NAD HEENT: eyes are clear and none icteric LUNGS: bilateral fair air entry with harsh breath sounds and rhonchi HEART: RR S1S2 ABD: BS+, Soft and nontender Lower extremities: no edema SKIN: nonjaundiced Neuro: grossly intact. Objective Data Vital Signs Vital Signs: Vital Signs - 24 hr 08/30/22 20:42 08/30/22 21:02 08/30/22 22:00 Temperature 100.6 F H Pulse Rate 74 75 Respiratory Rate 16 18 Blood Pressure 121/59 L Pulse Oximetry 94 93 Oxygen Delivery Nasal Cannula Oxygen Flow Rate 2 08/31/22 06:00 08/31/22 08:01 08/31/22 08:35 Temperature 98.9 F Pulse Rate 69 6
[2022-08-31] MEDS: MELATONIN 5 MG TABLET PO (21:19)
[2022-09-01] VITALS (7 sets, daily range): BP systolic 121–137; BP diastolic 57–68; PULSE 65–78; RESP 19–20; TEMP 36.6–37.2; O2SAT 92–95
[2022-09-01] MEDS: SODIUM CHLORIDE 0.9% IV 1,000 ML 100 ML IV CONT (04:36)
[2022-09-01 06:47] LABS: Hematocrit 33.3 % (42.0-52.0); Hemoglobin 10.9 g/dL (14.0-18.0); Mean Corpuscular HGB Conc 32.7 g/dl (32-36); Mean Corpuscular Hemoglobin 29.9 pg (26-34); Mean Corpuscular Volume 91.2 fl (80-100); Mean Platelet Volume 11.3 fl (7.4-10.4); Platelet Count Result 237 k/mm3 (150-375); Red Blood Count 3.65 M/mm3 (4.6-6.20); Red Cell Distribution Width 14.1 % (11.5-14.5); White Blood Count 9.5 K/mm3 (4.5-10.0)
[2022-09-01 06:58] LABS: Anion Gap 5 mmol/L (8-16); Blood Urea Nitrogen 15 mg/dL (9-20); Calcium 7.8 mg/dL (8.4-10.2); Carbon Dioxide 27 mmol/L (22-30); Chloride 102 mmol/L (98-107); Estimated CRCL calculation 68 ml/min; Estimated Glomerular Filt Rate > 60; Glucose 151 mg/dL (65-110); Magnesium 1.7 mg/dL (1.6-2.3); Potassium 3.5 mmol/L (3.4-5.0); Sodium 134 mmol/L (137-145)
[2022-09-01] MEDS: ENOXAPARIN 40 MG/0.4 ML SYRINGE SUB-Q (09:39)
[2022-09-01] MEDS: amLODIPine BESYLATE 5 MG TABLET 10 MG PO (09:39)
[2022-09-01] MEDS: MAGNESIUM OXIDE 400 MG TABLET PO (09:39)
[2022-09-01] MEDS: allopurinoL 100 MG TABLET PO (09:40)
[2022-09-01] MEDS: SACCHAROMYCES BOULARDII 250 MG CAPSULE PO (09:40)
[2022-09-01] MEDS: ALBUTEROL SULFATE NEB 2.5 MG/3 ML INH INHALATION (10:00)
[2022-09-01] MEDS: IPRATROPIUM BR 0.02% INH SOLN 0.5 MG/2.5 ML VIAL INHALATION (10:00)
--- NOTE | 2022-09-01 11:13 | PM.IMPN ---
Progress Note: A&P Assessment and Plan (1) Community acquired pneumonia: Code(s): J18.9 - Pneumonia, unspecified organism Status: Acute Assessment and Plan: Continue Rocephin and azithromycin, started August 30 (2) Hyperlipidemia: Qualifiers: Hyperlipidemia type: unspecified Qualified Code(s): E78.5 - Hyperlipidemia, unspecified Code(s): E78.5 - Hyperlipidemia, unspecified Status: Acute Assessment and Plan: Continue statin (3) Hypertension: Qualifiers: Hypertension type: essential hypertension Qualified Code(s): I10 - Essential (primary) hypertension Code(s): I10 - Essential (primary) hypertension Status: Acute Assessment and Plan: Resolved, restart home meds (4) Sacral back pain: Code(s): M53.3 - Sacrococcygeal disorders, not elsewhere classified Status: Acute Assessment and Plan: On medical marijuana outpatient (5) Diabetes mellitus: Qualifiers: Diabetes mellitus complication status: without complication Diabetes mellitus senior living insulin use: without senior living use Diabetes mellitus type: type 2 Qualified Code(s): E11.9 - Type 2 diabetes mellitus without complications Code(s): E11.9 - Type 2 diabetes mellitus without complications Status: Acute Assessment and Plan: A1c 6.3, Accu-Cheks with sliding scale insulin Would recommend metformin at discharge (6) Acute kidney injury: Code(s): N17.9 - Acute kidney failure, unspecified Status: Acute Assessment and Plan: Resolved with IV fluids (7) COPD (chronic obstructive pulmonary disease): Code(s): J44.9 - Chronic obstructive pulmonary disease, unspecified Status: Acute Assessment and Plan: Noted on chest x-ray and chest CT, follow-up outpatient for further management Plan DVT prophylaxis with Lovenox GI prophylaxis not indicated Code status full code Subjective Date/time seen: 09/01/22 11:13 Interval history: No overnight events noted. No chest pain or shortness of breath. No nausea, vomiting or diarrhea. No fevers or chills. Review of Systems Review of Systems: 12 point review of systems was assessed and was negative except as noted in the HPI Exam Narrative: General: No acute distress, alert and oriented per baseline HEENT: Atraumatic, normocephalic, mucous membranes moist CV: Regular rate and rhythm, S1, S2 Lungs: Clear to auscultation bilaterally, no rales or crackles noted, no wheezes, good air entry Abdomen: Soft, nontender, nondistended Extremities: Normal to inspection Skin: No rashes noted, no lesions or wounds seen Psych: Euthymic, normal affect Objective Data Vital Signs Vital Signs: Vital Signs - 24 hr 08/31/22 14:00 08/31/22 14:09 08/31/22 14:00 Temperature 98.3 F Pulse Rate 69 78 71 Respiratory Rate 16 16 16 Blood Pressure 122/53 L Pulse Oximetry 93 Oxygen Delivery Oxygen Flow Rate 08/31/22 20:00 08/31/22 22:00 09/01/22 06:00 Temperature 98.9 F 97.8 F Pulse Rate 79 65 Respiratory Rate 21 H 19 Blood Pressure 102/42 L 121/57 L Pulse Oximetry 98 92 93 Oxygen Delivery Nasal Cannula Oxygen Flow Rate 1 09/01/22 10:01 09/01/22 10:07 09/01/22 09:40 Temperature Pulse Rate 74 78 Respiratory Rate 20 20 Blood Pressure Pulse Oximetry 93 Oxygen Delivery Nasal Cannula Oxygen Flow Rate 1 Intake/Output Intake/Output: Intake & Output 08/29/22 08/30/22 08/31/22 09/01/22 23:59 23:59 23:59 23:59 Intake Total 1300 4240 1980 1260 Output Total 1900 Balance 1300 4240 1979 -640 Meds/Results Medications: Active Medications Generic Name Dose Route Start Last Admin Trade Name Freq PRN Reason Stop Dose Admin Albuterol 2.5 mg 08/29/22 20:00 09/01/22 10:00 Albuterol Sulfate Neb 2.5 Mg/3 Ml Inh INHALATION 2.5 mg Q6HRT YISSEL Administration Allopurinol 100 mg 08/30/22 08:00 09/01/22
--- NOTE | 2022-09-01 14:25 | PM.DS ---
DS: Admitting Diagnosis Discharge Date September 01, 2022 Admitting Diagnosis Shortness of breath DS: Discharge Diagnosis Discharge Diagnosis (1) Community acquired pneumonia: Code(s): J18.9 - Pneumonia, unspecified organism Status: Acute Assessment and Plan: Continue Rocephin and azithromycin, started August 30 (2) Hyperlipidemia: Qualifiers: Hyperlipidemia type: unspecified Qualified Code(s): E78.5 - Hyperlipidemia, unspecified Code(s): E78.5 - Hyperlipidemia, unspecified Status: Acute Assessment and Plan: Continue statin (3) Hypertension: Qualifiers: Hypertension type: essential hypertension Qualified Code(s): I10 - Essential (primary) hypertension Code(s): I10 - Essential (primary) hypertension Status: Acute Assessment and Plan: Resolved, restart home meds (4) Sacral back pain: Code(s): M53.3 - Sacrococcygeal disorders, not elsewhere classified Status: Acute Assessment and Plan: On medical marijuana outpatient (5) Diabetes mellitus: Qualifiers: Diabetes mellitus type: type 2 Diabetes mellitus halfway insulin use: without halfway use Diabetes mellitus complication status: without complication Qualified Code(s): E11.9 - Type 2 diabetes mellitus without complications Code(s): E11.9 - Type 2 diabetes mellitus without complications Status: Acute Assessment and Plan: A1c 6.3, Accu-Cheks with sliding scale insulin Would recommend metformin at discharge (6) Acute kidney injury: Code(s): N17.9 - Acute kidney failure, unspecified Status: Acute Assessment and Plan: Resolved with IV fluids (7) COPD (chronic obstructive pulmonary disease): Code(s): J44.9 - Chronic obstructive pulmonary disease, unspecified Status: Acute Assessment and Plan: Noted on chest x-ray and chest CT, follow-up outpatient for further management Plan DVT prophylaxis with Lovenox GI prophylaxis not indicated Code status full code DS: Summary Hospital Course Hospital Course: 77-year-old male with past medical history significant for asthma presenting to the ER 10 day history of shortness of breath, productive of sputum, fever and chills. He was noted to have AFib and admitted to diarrhea. In the ER, he was thought to have community-acquired pneumonia started on Rocephin azithromycin. He also had some acute kidney injury that resolved with hydration. Lisinopril and hydrochlorothiazide were temporarily held when his creatinine was greater than 1.5. A1c was found to be 6.3. Would recommend patient start on metformin and continue other home medications. All symptoms resolved. He was discharged in good condition on cefdinir to complete a 10 day course and he completed a 3 day course of 500 mg of azithromycin. Time Spent with Patient Time attestation: Total time spent providing and/or coordinating discharge services: Exam Narrative: General: No acute distress, alert and oriented per baseline HEENT: Atraumatic, normocephalic, mucous membranes moist CV: Regular rate and rhythm, S1, S2 Lungs: Clear to auscultation bilaterally, no rales or crackles noted, no wheezes, good air entry Abdomen: Soft, nontender, nondistended Extremities: Normal to inspection Skin: No rashes noted, no lesions or wounds seen Psych: Euthymic, normal affect DS: Data Data Completed and Pending Labs on day of discharge: Labs from last 24 hours 09/01/22 09/01/22 06:04 06:04 WBC 9.5 RBC 3.65 L Hgb 10.9 L Hct 33.3 L MCV 91.2 MCH 29.9 MCHC 32.7 RDW 14.1 Plt Count 237 MPV 11.3 H Sodium 134 L Potassium 3.5 Chloride 102 Carbon Dioxide 27 Anion Gap 5 L BUN 15 D Creatinine 1.00 Estim Creat Clear Calc 68 Estimated GFR > 60 Glucose 151 H Calcium 7.8 L Magnesium 1.7 Preliminary micro results at discharge 08/29/22 15:45 Blood
== END 2022-09-01 15:21 | disposition home or self-care (01) | DRG 195 ==
LOC: ANHED 15:22 → ANH3MEDSUR 17:30
PROVIDERS: Family Medicine; Nurse Practitioner; Admitting Provider Internal Medicine; Emergency Provider Emergency Medicine; PCP Internal Medicine; Visit Provider Student in an Organized Health Care Education/Training Program
DX: J18.9 Pneumonia, unspecified organism (principal); Z20.822 Contact with and (suspected) exposure to COVID-19; J45.909 Unspecified asthma, uncomplicated; I12.9 Hypertensive chronic kidney disease with stage 1 through stage 4 chronic kidney disease, or unspecified chronic kidney disease; N18.31 Chronic kidney disease, stage 3a; R73.03 Prediabetes; E66.9 Obesity, unspecified; M19.90 Unspecified osteoarthritis, unspecified site; E78.5 Hyperlipidemia, unspecified; R91.1 Solitary pulmonary nodule; M53.3 Sacrococcygeal disorders, not elsewhere classified; Z96.652 Presence of left artificial knee joint; Z68.33 Body mass index [BMI] 33.0-33.9, adult; Z87.11 Personal history of peptic ulcer disease; Z87.891 Personal history of nicotine dependence
CPT/HCPCS: 36415; 71046; 71275; 80048; 80053; 83036; 83605; 83615; 83735; 83880; 84443; 84484; 85025; 85027; 85610; 85730; 87040; 87070; 87147; 87181; 87186; 87205; 87636; 93005; 94640; 96361; 96365; 96367; 96372; 96375; 99285; A9270; G0378; J0456; J0696; J1650; J3370; J3480; J7030; J7040; Q9967

== ENCOUNTER → 2022-09-06 10:32 | Outpatient (CLI) | payer MEDICARE, SELFPAY ==
--- NOTE | ~2022-09-06 | XR_ITS ---
Right foot Technique: AP, oblique, and lateral views were obtained. Clinical History: Pain Findings: No acute fracture or dislocation is seen. Osseous alignment is anatomic. Mild degenerative change at the first MTP joint region noted. Plantar calcaneal spur noted. Mild soft tissue swelling o f the dorsal forefoot noted. Impression: Mild degenerative change at the first MTP joint region. Soft tissue swelling of the dorsal forefoot. Reviewed, dictated and finalized at location . ARINE WORKER Impression: Mild degenerative change at the first MTP joint region. Soft tissue swelling of the dorsal forefoot.
== END ==
PROVIDERS: PCP Internal Medicine; Visit Provider Nurse Practitioner
DX: M79.674 Pain in right toe(s) (principal); M79.89 Other specified soft tissue disorders
CPT/HCPCS: 73630

== ENCOUNTER 2022-10-18 09:40 | Outpatient (CLI) | payer MEDICARE, SELFPAY ==
--- NOTE | ~2022-10-18 | XR_ITS ---
EXAMINATION:[id number] DATE: 10/18/2022 10:11 INDICATION: Neck pain TECHNIQUE: AP, lateral, lateral swimmers and odontoid views of the cervical spine are provided. COMPARISON: None FINDINGS: There is 1 mm of retrolisthesis of C3 on C4. There are 2 mm of retrolisthesis of C5 on C6 a nd C6 on C7. The odontoid process is intact. No fracture is identified. There is severe loss of inter vertebral disc space height at C5-6 and C6-7 and mild loss of intervertebral disc space height at C3- 4. The vertebral body heights are maintained. There is multilevel severe facet and uncovertebral join t osteoarthritis. Prevertebral soft tissues are normal. IMPRESSION: 1. Severe cervical spondylosis without acute findings. Reviewed, dictated and finalized at location B. R MECHANIC
--- NOTE | ~2022-10-18 | XR_ITS ---
EXAMINATION: XR lumbar spine 2-3V DATE: 10/18/2022 10:11 INDICATION: Low back pain TECHNIQUE: Anteroposterior and lateral views of the lumbar spine, and cone-down lateral view of the l umbosacral junction were obtained. COMPARISON: 05/17/2021 FINDINGS: There are 20 degrees of lumbar dextroscoliosis. The vertebral body heights are maintained. There is no fracture. There is severe loss of intervertebral disc space height at L2-3, L3-4, and L4- 5. There is moderate loss of disc space height at L1-2 and L5-S1. Vertebral body alignment is normal. There is multilevel severe facet joint osteoarthritis. Degenerative osteophytes project from the ant erior endplates of multiple vertebral bodies. There is calcified atherosclerosis of the aorta. IMPRESSION: 1. Severe lumbar spondylosis without acute findings or significant interval change. Reviewed, dictated and finalized at location B. X THREAD MACHINE OPERATOR IMPRESSION: 1. Severe lumbar spondylosis without acute findings or significant interval afshin nge.
== END 2022-10-18 09:41 | disposition home or self-care (01) ==
PROVIDERS: PCP Internal Medicine; Visit Provider Nurse Practitioner
DX: M47.896 Other spondylosis, lumbar region (principal); M47.892 Other spondylosis, cervical region
CPT/HCPCS: 72040; 72100

== ENCOUNTER 2022-10-31 09:48 | Outpatient (CLI) | payer MEDICARE, SELFPAY ==
--- NOTE | ~2022-10-31 | MR_ITS ---
MRI of the cervical spine Clinical History: Neck pain Technique: Axial T2-weighted and gradient images, and sagittal T1-weighted, T2-weighted, and STIR adam ges were acquired. Findings: There is no fracture of the cervical spine. Minimal grade 1 anterolisthesis of C4 over C5 n oted. No suspicious bone marrow signal abnormality identified. At C2-C3, there is no disc bulge or herniation. There is probable right facet arthropathy. No spinal canal stenosis, cord compression, or neural foraminal narrowing. At C3-C4, there is a moderate disc osteophyte complex, which minimally flattens the ventral cord. Gibson ateral neural foraminal narrowing is present, left worse than right. At C4-C5, there is no significant disc bulge or herniation. No spinal canal stenosis, cord compressio n, or definite neural foraminal narrowing. At C5-C6, there is disc narrowing with disc osteophyte complex. There is probable minimal effacement of the thecal sac but no pete cord compression. There is moderate to severe bilateral neural foramin al narrowing, left worse than right. At C6-C7, there is disc osteophyte complex, more pronounced in the central right paracentral to right foraminal regions. No pete cord compression. There is advanced bilateral neural foraminal narrowing , right worse than left. No abnormal signal seen in the spinal cord. Paravertebral soft tissues are unremarkable. Impression: Moderate degenerative spondylosis, as detailed above. There is multilevel neural foraminal narrowing. There is minimal flattening of the ventral cord at C3-C4. Minimal grade 1 anterolisthesis of C4 over C5. Reviewed, dictated and finalized at [facility]. 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 There is multilevel neura l foraminal narrowing. There is minimal flattening of the ventral cord at C3-C4 . Minimal grade 1 anterolisthesis of C4 over C5.
--- NOTE | ~2022-10-31 | MR_ITS ---
MRI of the lumbar spine Clinical History: Back pain Technique: Axial T2-weighted images, and sagittal T1-weighted, T2-weighted, and T2 fat-sat images wer e acquired. Findings: No fracture identified. Probable minimal grade 1 retrolisthesis of L3 over L4. No suspiciou s bone marrow signal abnormality seen. At L1-L2, there is severe degenerative disc narrowing. There is moderate facet arthropathy with proba ble minimal disc bulge. No pete spinal canal stenosis. Probable mild left neural foraminal narrowing . Right neural foramen preserved. At L2-L3, there is severe degenerative disc narrowing. There is disc bulge and facet arthropathy, sev ere left lateral recess stenosis. There is moderate left neural foraminal narrowing. Right neural for amen preserved. At L3-L4, there is moderate to severe degenerative disc narrowing. Disc bulge and facet arthropathy r esult in severe spinal canal stenosis. There is moderate to severe bilateral neural foraminal narrowi ng. At L4-L5, there is severe degenerative disc narrowing. Disc bulge and facet arthropathy result in sev ere spinal canal stenosis/thecal sac compression. There is severe bilateral neural foraminal narrowin g. At L5-S1, there is facet arthropathy without significant disc bulge or herniation. No spinal canal st enosis or neural foraminal narrowing. Paravertebral soft tissues are unremarkable. Impression: Severe degenerative spondylosis, as detailed above. Findings are worst at L3-L4 and L4-L5. Reviewed, dictated and finalized at [facility]. LOPMENTAL EDUCATION INSTRUCTOR Impression: Severe degenerative spondylosis, as detailed above. Findings are worst at L3-L4 and L4-L5.
== END 2022-10-31 09:49 | disposition home or self-care (01) ==
PROVIDERS: PCP Internal Medicine; Visit Provider Nurse Practitioner
DX: M47.816 Spondylosis without myelopathy or radiculopathy, lumbar region (principal); M54.50 Low back pain, unspecified; M47.22 Other spondylosis with radiculopathy, cervical region
CPT/HCPCS: 72141; 72148

== ENCOUNTER → 2023-05-07 15:36 | Outpatient (CLI) | payer MEDICARE, SELFPAY ==
--- NOTE | ~2023-05-07 | XR_ITS ---
EXAMINATION: XR chest 2V DATE: 05/07/2023 15:44 INDICATION: Shortness of breath TECHNIQUE: Frontal and lateral views of the chest are obtained COMPARISON: 08/29/2022 FINDINGS: The lungs are free of acute opacities. No pleural effusion or pneumothorax. The cardiomedia stinal silhouette is normal. There is moderate thoracic spondylosis. IMPRESSION: 1. No acute cardiopulmonary abnormality. Reviewed, dictated and finalized at location B.
== END ==
PROVIDERS: PCP Internal Medicine; Visit Provider Nurse Practitioner
DX: R06.02 Shortness of breath (principal)
CPT/HCPCS: 71046

== ENCOUNTER 2023-08-20 16:00 | Outpatient (CLI) | payer MEDICARE, SELFPAY ==
[2023-08-20 19:04] LABS: Appearance Urine Clear (Clear); Bacteria Urine None Seen /hpf; Bilirubin Urine Negative (Negative); Blood Urine Negative (Negative); Color Urine Yellow (Yellow); Glucose Urine UA Negative (Negative); Ketones Urine Negative (Negative); Leukocyte Esterase Ur Negative LEU/UL (Negative); Nitrate Urine Negative (Negative); Non Pathogenic Casts 0-2; Protein Urine 1+ mg/dL (Negative); RBC Urine 0-2 /hpf (0-2); Specific Grav Ur 1.018 (1.001-1.035); Squamous Epithelial Cell Urine None seen /hpf (Few); Urobilinogen Urine 0.2 mg/dL (<2.0); WBC Urine 0-5 /hpf; pH Urine 5.5 (5.0-9.0)
[2023-08-20 19:25] LABS: Add Urine Microscopic? YES
== END 2023-08-20 16:01 | disposition home or self-care (01) ==
LOC: ANHGOSHLAB 16:01
PROVIDERS: PCP Internal Medicine; Visit Provider Nurse Practitioner
DX: R35.0 Frequency of micturition (principal)
CPT/HCPCS: 81001

== ENCOUNTER 2023-12-27 10:41 | Outpatient (CLI) | payer MEDICARE, SELFPAY ==
--- NOTE | 2023-12-27 | ECG_ITS ---
SEE SCANNED COPY FOR CONFIRMED REPORT MTDD
== END 2023-12-27 10:42 | disposition home or self-care (01) ==
LOC: ANHLAB 10:43
PROVIDERS: PCP Internal Medicine; Visit Provider Pain Medicine Pain Medicine
DX: Z01.818 Encounter for other preprocedural examination (principal)
CPT/HCPCS: 93005

== ENCOUNTER 2024-10-12 12:36 | Outpatient (CLI) | payer MEDICARE, SELFPAY ==
--- NOTE | ~2024-10-12 | MR_ITS ---
EXAMINATION: MR lumbar spine wo con DATE: 10/12/2024 13:01 INDICATION: Lumbar radiculopathy. TECHNIQUE: Magnetic resonance imaging (MRI) of the lumbar spine was performed without intravenous con trast. Sequences included sagittal T2-weighted FSE, sagittal T2-weighted FS FSE, sagittal T1-weighted FSE, and axial T2-weighted FSE. COMPARISON: Lumbar spine MRI 10/31/2022 FINDINGS: There is 16 degrees dextroscoliosis of lumbar spine. There is 3 mm retrolisthesis of L1 on L2, L2 on L3, and L3 on L4. There is mild chronic anterior wedging of T11-L1 vertebral bodies. There is moderately decreased disc height at L1-L2 and severely decreased disc height from L2-L3 through L4 -L5. There is ligamentum flavum hypertrophy at the disc levels from L1-L2 through L4-L5. The distal s susu cord signal intensity is normal. The conus medullaris is at L1. The following disc levels are s pecifically discussed: L1-L2: The disc is bulging and has an annular fissure. There is moderate bilateral facet joint osteoa rthritis. There is mild bilateral neural foraminal stenosis. There is mild central canal stenosis. L2-L3: The disc is bulging and has an annular fissure. There is mild right and moderate left facet sana int osteoarthritis. There is mild right and moderate left neural foraminal stenosis. There is mild ce ntral canal stenosis. L3-L4: The disc is bulging and has an annular fissure. There is severe bilateral facet joint osteoart hritis. There is moderate bilateral neural foraminal stenosis. There is severe central canal stenosis . L4-L5: The disc is bulging and has an annular fissure. There is severe bilateral facet joint osteoart hritis. There is moderate bilateral neural foraminal stenosis. There is severe central canal stenosis . L5-S1: The disc does not extend beyond the endplate margin. There is severe bilateral facet joint ost eoarthritis. There is mild bilateral neural foraminal stenosis. There is no central canal stenosis. IMPRESSION: 1. Severe lumbar spondylosis, stable from 10/31/2022. 2. Lumbar dextroscoliosis. Reviewed, dictated and finalized at location A. R PROFESSIONAL ENGINEER
== END 2024-10-12 12:37 | disposition home or self-care (01) ==
LOC: MICIMG 12:37
PROVIDERS: PCP Nurse Practitioner Family; Visit Provider Nurse Practitioner Family
DX: M47.26 Other spondylosis with radiculopathy, lumbar region (principal)
CPT/HCPCS: 72148

== ENCOUNTER 2024-12-25 12:46 | Emergency (ER) | payer MEDICARE, SELFPAY ==
--- NOTE | 2024-12-25 12:55 | ED.GENADULT ---
HPI - General Adult General Chief complaint: Dizziness Stated complaint: Dizzy Time Seen by Provider: 12/25/24 12:55 Source: patient Mode of arrival: ambulatory Limitations: no limitations History of Present Illness HPI narrative: 79 y/o male with hx COPD and DM presented for c/o dizziness this morning. States he felt dizzy after walking up the stairs. Pt says his BP has been 'good' lately so he checked his blood glucose at home which read High. Dizziness has since resolved; but currently feels fatigued. Endorses increased thirst and urination. Says A1C was 6.8 most recently. Denies chest pain, palpitations, increased sob or cough from baseline, n/v/d/f/c. Related Data Home Medications ?Medication ?Instructions ?Recorded ?Confirmed ?Last Taken ?Type beta-sitosterol 125 mg-vit D3 10 tablet PO 05/07/23 10/12/24 Unknown History [id number] 250 mg tablet (Prostate Max Plus) Allergies Allergy/AdvReac Type Severity Reaction Status Date / Time Chlorine Allergy Intermediate SWELLING, Uncoded 10/12/24 15:13 SOB Review of Systems Review of Systems: CONSTITUTIONAL: reports fatigue Denies body aches, fever, chills, or sweats. EYES: Denies visual changes, redness, or discharge. ENT: Denies rhinorrhea, congestion, sore throat, or otalgia. CARDIOVASCULAR: Denies chest pain, palpitations, or edema. RESPIRATORY: reports chronic cough and dyspnea. GASTROINTESTINAL: Denies abdominal pain, nausea, vomiting, or diarrhea. GENITOURINARY: reports increased urination Denies dysuria or hematuria. SKIN: Denies rash MUSCULOSKELETAL: Denies back pain, joint pain, or myalgia. NEUROLOGIC: Denies headache, numbness, tingling, reports weakness. All systems reviewed & are unremarkable except as noted in HPI and below PMFSH Past Medical History Medical History COPD (chronic obstructive pulmonary disease) Chronic back pain Peptic ulcer Proteinuria Gout Pre-diabetes Hemoglobin A1c was 6.3 09/02/2019. Benign colon polyp Hyperlipidemia Hypertension Obesity Asthma Solitary pulmonary nodule Osteoarthritis Mumps Measles Surgical History Surgical History H/O rectal polypectomy History of right knee joint replacement H/O hand surgery 09/2020 Status post excision of lipoma Right shoulder. History of left knee replacement September 2011. Family History Family History Mother Hypertension Carcinoma of colon Brain bleed Father Family history of coronary artery disease Hypertension Gastric artery aneurysm Sibling Family history of coronary artery disease Hypertension Acute myocardial infarction Renal failure Diabetes mellitus Other Family history of arthritis Family history of cardiovascular disease Family history of kidney disease Social History Social History Social History: The patient lives in [place]. He lives at home with his Kiya. 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 He quit in 1999. He used to be a heavy drinker as well but has abstained since 1996. He has 1 daughter. Code status full code Caffeine-coffee/tea Smoking packs per day: 3 Smoking cigarettes per day: 60.0 Years smoked: 52 Smoking pack-years: 156.00 Smoking status: Former smoker Tobacco type: cigarettes Second hand tobacco smoke exposure: Yes Smoking end date: 09/01/00 Alcohol intake: never Substance use: never Substance use type: does not use Do You Feel Safe in your Home?: Yes Lack of Transportation: No Lack of Food: Never True Current Housing: I Have Housing Concerned About Future Housing: No Difficulty Paying Gas/Electric Bills: No Difficulty Paying for Meds: No Currently Unemployed: No Education: Bachelor's Degree Difficulty w/ Childcare or Family Care: No Living arrangements: with family Gender identity (if verbalized by the patient): Male Spiritual care concerns: No Comments At time of signature, I have reviewed and agree with nursing past medical, surgical, social and family history unless otherwise noted. Please see nursing chart for further information. There is no relevant family history pertinent to the presenting complaint Exam Narrative: GENERAL: Well-appearing, and in no acute distress. HEAD: Normocephalic, atraumatic. EYES: EOMI. No redness or drainage. Conjunctivae normal. ENT: Mucous membranes pink and moist. No rhinorrhea. NECK: Normal AROM. Supple. No lymphadenopathy. CHEST: No respiratory distress. Clear to auscultation. HEART: Regular rate and rhythm. No murmur appreciated. Normal peripheral pulses. SKIN: Warm, dry, no rash. Capillary refill normal. NEURO: No focal deficits. Alert and oriented x3. Gait steady. PSYCH: Normal affect. Course Course Emergency Course: Patient is aware of diagnosis, understands and agrees to treatment plan. Anticipatory guidance given. Patient agrees to follow-up as directed and is aware of reasons to seek care at the emergency department. Portions of this record may have been created with voice recognition software Level of Care: Express Care Visit Transfer Transfered to: [place] Transportation: Other (private vehicle) Transfer rationale: Pt is agreeable to transfer. Requests transfer to [facility] via private vehicle. Risks of transportation reviewed with pt including injury, worsening of condition and . v/u. will be driving pt; Report called to hospital, spoke with Dr Muniz, accepting physician. Pt is in stable condition at time of transfer. Advised to remain NPO and go directly to the hospital. Medical Decision Making MDM Narrative Medical decision making narrative: Pt presented with episode of dizziness, with elevated blood glucose readings, fatigue, increased thirst. Advised ER transfer. Pt declines EMS transfer. Differential Diagnosis Differential Diagnosis: anemia, dehydration, sepsis, arrhythmia, BPPV, labyrinthitis, vestibular neuritis, sinusitis, CVA, migraine, DC, hyperglycemia Vital Signs Vital Signs: reviewed Discharge Plan Discharge Clinical Impression: Acute hyperglycemia Patient Disposition: Acute Care Hospital Condition: Stable Patient Language: Surinamese Prescriptions: No Action Prostate Max Plus 125 mg-10 mcg- 250 mg tablet PO amlodipine 10 mg tablet See Rx Instructions .ROUTE .COMPLEX Qty: 90 3RF Dose Instruction: TAKE 1 TABLET EVERY DAY Rx Instructions: TAKE 1 TABLET EVERY DAY lisinopril 40 mg tablet 40 mg PO DAILY Qty: 90 1RF simvastatin 20 mg tablet 20 mg PO DAILY Qty: 90 1RF tamsulosin 0.4 mg capsule See Rx Instructions .ROUTE .COMPLEX Qty: 90 3RF Dose Instruction: TAKE 1 CAPSULE AT BEDTIME Rx Instructions: TAKE 1 CAPSULE AT BEDTIME hydrochlorothiazide 25 mg tablet 25 mg PO DAILY Qty: 90 3RF allopurinol 100 mg tablet 100 mg PO DAILY Qty: 90 1RF fluticasone propion-salmeterol 250-50 mcg/dose blister with device See Rx Instructions .ROUTE .COMPLEX Qty: 180 3RF Dose Instruction: INHALE 1 PUFF TWICE DAILY Rx Instructions: INHALE 1 PUFF TWICE DAILY Follow-up/Referrals: PHYSICIAN,ROLLER DIE CUTTING MACHINE OPERATOR [Primary Care Provider] - Time of Disposition: 13:04
[2024-12-25 12:56] VITALS: BP 97/63; PULSE 86; RESP 16; TEMP 36.2; O2SAT 95
[2024-12-25 13:03] LABS: Glucose Point of Care > 500 mg/dl (65-105)
== END 2024-12-25 13:06 | disposition short-term general hospital (02) ==
PROVIDERS: Emergency Provider Nurse Practitioner Family
DX: R73.9 Hyperglycemia, unspecified (principal); J44.9 Chronic obstructive pulmonary disease, unspecified; R73.03 Prediabetes; I10 Essential (primary) hypertension; E78.5 Hyperlipidemia, unspecified; M10.9 Gout, unspecified; J45.909 Unspecified asthma, uncomplicated; M19.90 Unspecified osteoarthritis, unspecified site; E66.9 Obesity, unspecified; Z68.31 Body mass index [BMI] 31.0-31.9, adult; Z96.653 Presence of artificial knee joint, bilateral; Z86.0100 Personal history of colon polyps, unspecified
CPT/HCPCS: 82948; 99213; G0463

== ENCOUNTER 2024-12-25 13:28 | Observation (INO) | payer MEDICARE, SELFPAY ==
[2024-12-25] VITALS (20 sets, daily range): BP systolic 115–158; BP diastolic 56–87; PULSE 68–93; RESP 13–23; TEMP 36.4–36.6; O2SAT 92–98; BMI 31.2
--- NOTE | ~2024-12-25 | US_ITS ---
US renal BI Ordering provider: Krzysztof Pena MD History: . ANAY . Comparison: None. Technique: Ultrasound bilateral kidneys. Findings: RIGHT KIDNEY: Measures 13x 6.4x 5.2 cm in length which is normal in size. Multiple cysts are seen wit h the largest which is exophytic measures 2.7 x 2.9 x 2.6 cm. Possible septations is noted. No renal mass or visualized echogenic stones. Otherwise, normal echotexture and contour. No hydronephrosis. No rmal renal cortical thickness. LEFT KIDNEY: Measures 12.2x 6.4x 5.8 cm in length which is normal in size. Multiple cysts are seen wi th the largest seen in the pelvis area measuring 2.7 x 2.2 x 3.3 cm. No renal mass or visualized echo genic stones. Otherwise, normal echotexture and contour. No hydronephrosis. Normal renal cortical thi ckness. BLADDER: Underfilled. Ureteral jets were not seen bilaterally. IMPRESSION: Bilateral renal cysts. Otherwise, no abnormality seen. Reviewed, dictated and finalized at location A.
--- NOTE | ~2024-12-25 | CT_ITS ---
CT abdomen pelvis wo con Ordering provider: Axel Carrillo MD History: 79 years Male with . r/o pancreatitis . Comparison: None. Technique: CT abdomen and pelvis without IV and without oral contrast. Automated exposure control and iterative reconstruction technique were employed. The dose-length product was 923.13 mGy-cm. Findings: VISUALIZED LOWER CHEST: Dependent atelectatic changes. Subsegmental atelectasis in the lingula. UPPER ABDOMINAL ORGANS: Liver: Cyst in segment #7 measuring 1.7 x 1.6 cm. Gallbladder: Contracted. Spleen: Normal. Stomach/duodenum: Normal. Pancreas: Normal. Adrenals: Normal. Kidneys: Tiny stone in the right kidney lower pole. Multiple cysts are seen in both kidneys with the largest in the right kidney measuring 2.9 cm. PELVIC ORGANS: The bladder is underfilled with slightly thickened wall. BOWEL AND MESENTERY: Colon: No evidence of appendicitis or diverticulitis. Small Bowel: Normal. No obstruction. Peritoneum/mesentery: No free air or free fluid. No mesenteric lymphadenopathy. RETROPERITONEUM: Mild atheromatous disease of the abdominal aorta. No retroperitoneal lymphadenopat hy. MUSCULOSKELETAL: Superficial soft tissues: Bilateral fat containing inguinal hernias. Otherwise, The superficial soft tissues are normal. Bones: Age appropriate degenerative changes of the spine. Bilateral sacroiliacs. Mild dextroscoliosis . IMPRESSION: 1. No evidence of appendicitis, diverticulitis or intestinal obstruction. 2. Bilateral fat containing inguinal hernias. 3. Stone in the right kidney lower pole. Bilateral kidney cysts. 4. Hypodensity in the liver which may be a cyst. Follow-up advised. Reviewed, dictated and finalized at location A.
--- OUTSIDE RECORDS SUMMARY | 2024-12-25 13:30 | XMS_ITS | Continuity of Care Document ---
Author Organization [facility] Address [address] [place] [address] Phone Care Team Providers Care Welder Plasma Arc Name Role Phone Armando PT,MPT,ATC, Yasir Unavailable Unavai lable Procedures Procedure Date Therapeutic Activities Neuromuscular Re-Ed Therapeutic Exercise Therapeutic Activities Neuromuscular Re-Ed Therapeutic Exercise Therapeutic Activities Neuromuscular Re-Ed Therapeutic Activities Neuromuscular Re-Ed Therapeutic Exercise Therapeutic Activities Neuromuscular Re-Ed Therapeutic Exercise Manual Therapy Therapeutic Activities Neuromuscular Re-Ed Therapeutic Exercise Manual Therapy Therapeutic Activities Neuromuscular Re-Ed Therapeutic Exercise Therapeutic Activities Therapeutic Exercise Neuromuscular Re-Ed Manual Therapy Therapeutic Activities Neuromuscular Re-Ed Therapeutic Exercise Therapeutic Activities Neuromuscular Re-Ed Therapeutic Exercise Therapeutic Activities Neuromuscular Re-Ed Therapeutic Exercise PT Evaluation Moderate Complexity Therapeutic Activities Therapeutic Exercise Neuromuscular Re-Ed Advance Directives Directive Yes / No Effective Date File Name No Information Encounters Encounter Description Practice Location Reason(s) For Visit Diagnoses Date Provider Providers Copied on Encounter [facility] [address] [place] [address], [id number], tel:[phone] [place] No Information Mar-1 8-202 0 Armando Ching , [place], [place]. Referring Provider: Bib Watson, [facility] [address] [place] [address] [address] [facility], [place], [place], [facility] [place]. tel:[phone] [place] [address] [place] [address], [id number], tel:[phone] [place] No Information Mar-1 6-202 0 Armando Ching , [place], [place]. Referring Provider: Bib Watson, [facility] [place] [facility] [address] [place] [address], [place], [place], [facility] [place]. tel:[phone] [place] [address] [place] [address], [id number], tel:[phone] [place] No Information Mar-1 2-202 0 Sommer Childs . Referring Provider: Bib Watson, [facility] [place] [facility] [address] [place] [address] [address] [facility], [place], [place], [facility] [place]. tel:[phone] [facility] [address] [place] [address], [id number], tel:[phone] [place] No Information Mar-0 9-202 0 Armando Ching , [place], [place]. Referring Provider: Bib Watson, [facility] [place] [facility] [address] [place] [address] [address] [facility], [place], [place], [facility] [place]. tel:[phone] [facility] [address] [place] [address] [address], [place], [place], [id number], tel:[phone] [place] No Information Mar-0 6-202 0 Armando Ching , [place], [place]. Referring Provider: Bib Watson, [facility] [place] [facility] [address] [place] [address] [address], [place], [place], [facility] [place]. tel:[phone] [facility] [address], [place], [place], [id number], tel:[phone] [place] No Information 0 Roberts Yasir. , [place], [place]. Referring Provider: Bib Watson, [facility] [address] [place] [address] [address], [place], [place], [facility] [place]. tel:[phone] [facility] [address], [place], [place], [id number], [place] tel:[phone] [place] No Information 0 Roberts Yasir. , [place], [place]. Referring Provider: Bib Watson, [facility] [place] [facility] [address] [place] [address] [address] [facility], [place], [place], [facility] [place]. tel:[phone] [place], [place] [address], [place], [place], [id number], [place] tel:[phone] [place] No Information 0 Roberts Yasir. , [place], [place]. Referring Provider: Bib Watson, [facility] [address] [place] [address] [address], [place], [facility] [place]. tel:[phone] [address], [place], [id number], [place] tel:[phone] [place] No Information 0 Roberts Yasir. , [place], [place]. Referring Provider: Bib Watson, [facility] [place] [facility] [address] [place] [address] [address], [place], [facility] [place]. tel:[phone] [facility] [address] [place], [place] [address], [place], [place], [id number], [place] tel:[phone] [place] No Information 0 Armando Sandovaln. , [place], [place]. Referring Provider: Bib Watson, [facility] [address] [place] [address] [address], [place], [facility] [place]. tel:[phone], [place], [place], [id number], tel:[phone] [place] No Information 0 [facility]. Referring Provider: Bib Watson, [facility] [address] [place] [address] [address], [place], [facility] [place]. tel:[phone], [place], [place], [id number], tel:[phone] [place] No Information 0 [place], [place], . Referring Provider: Bib Watson, [facility] [place] [facility] [address] [place] [address] [address], [place], [facility] [place]. tel:[phone] Family History Family Member Type Diagnosis Age At Onset No Information Payers Payer name Insurance type Covered constitution party ID Authormekhicatalina barrettroverto(s) [employer] Medicare Replacement 16 [id number] Social History Type Description Quantity Date Captured Comments Sex Male Smoking Status No Information Chief Complaint And Reason For Visit No Information Reason For Referral Reason For Referral No Information History Of Present Illness Encounter Date Complaint History Of Prese nt Illness No Information Functional Status Date Functional Assessmen t No Information Instructions Date Instruction Additional Infor blanca Giving encouragement to exercise Related to Overweight Assessments Type Assessment Date No Information Patient Care Teams Name Effective Dates (start - stop) Status Members No Information
--- OUTSIDE RECORDS SUMMARY | 2024-12-25 13:30 | XMS_ITS | Clinical Summary ---
Author Organization [facility] [place] [address] Address [address] [place] [address] Care Team Providers Care Law Clerk Name Role Phone Cb Bennett DO Primary Care Provider [phone] Allergies No known active allergies Medications albuterol HFA (PROVENTIL HFA,VENTOLIN HFA,PROAIR HFA) 90 mcg/actuation inhaler Inhale 1 puff every 6 (six) hours as needed for wheezing or shortness of breath 9 Active allopurinoL (ZYLOPRIM) 100 mg tabletIndicatio ns:prevention of acute gout attack Take 100 mg by mouth daily before breakfast 0 Active lisinopriL (PRINIVIL,ZESTR [place]) 20 mg tabletIndicatio ns:hypertension Take 40 mg by mouth daily before breakfast 2 Active hydroCHLOROthia zide (HYDRODIURIL) 25 mg tabletIndicatio ns:hypertension Take 25 mg by mouth daily before breakfast Active amLODIPine (NORVASC) 10 mg tabletIndicatio ns:hypertension Take 10 mg by mouth daily before breakfast Active simvastatin (ZOCOR) 20 mg tabletIndicatio ns:hyperlipidem ia Take 20 mg by mouth nightly Active saw palmetto 450 mg capsule Take 450 mg by mouth 2 (two) times a day Active UNABLE TO FIND Take 1 each by mouth nightly Med Name: CBD oil Active naproxen (ALEVE) 220 mg tablet Take 220 mg by mouth every 12 (twelve) hours as needed for pain Active esomeprazole DR (NexIUM) 20 mg capsule Take 20 mg by mouth daily before breakfast Active oxyCODONE (ROXICODONE) 5 mg immediate release tabletIndicatio ns:Pain Take 1 tablet (5 mg total) by mouth every 4 (four) hours as needed for pain 15 tablet 1 Active docusate sodium (COLACE) 100 mg capsuleIndicati ons:constipatio n Take 1 capsule (100 mg total) by mouth 2 (two) times a day 50 capsule 1 Active Active Problems Problem Noted Date Diagnosed Date Carpal tunnel syndrome, right 09/08/2020 Overview (09/08/2020): Added automatically from request for surgery [id number] Arthritis of carpometacarpal (CMC) joint of righ t thumb 09/08/2020 Overview (09/08/2020): Added automatically from request for surgery [id number] Hand joint laxity, right 09/08/2020 Overview (09/08/2020): Added automatically from request for surgery [id number] Surgical History Surgery Date Site/Laterality Comments TOTAL KNEE ARTHROPLASTY 09/01/2011 - 08/31/2012 Left TOTAL KNEE ARTHROPLASTY 09/01/2019 - 08/31/2020 Right LIPOMA RESECTION 09/01/1989 - 08/31/1990 shoulder COLONOSCOPY 09/01/2014 - 08/31/2015 Medical History Medical History Date Comments Hyperlipidemia Treated with sta tin Obesity Carpal tunnel syndrome Hypertension Dxd 1982 Family History Medical History Relation Name Comments PONV Daughter Relation Name Status Comments Daughter Social History Tobacco Use Types Packs/Day Years Used Date Smoking Tobacco: Former Cigarettes 2 50 1 951 - 2001 Smokeless Tobacco: Never Alcohol Use Standard Drinks/Week Comments Not Currently 0 (1 standard drink = 0.6 oz pure alcohol) last use 1996, past excessive use Sex and Gender Information Value Date Recorded Sex Assigned at Not on file Legal Sex Male 1:49 AM CLERK OPERATOR Gender Identity Male 08/29/2020 7:16 AM CLERK OPERATOR Sexual Orientation Straight 08/29/2020 7: 16 AM CLERK OPERATOR Obstetrics History Last Filed Vital Signs Vital Sign Reading Time Taken Comments Blood Pressure 131/67 09/14/2020 2:30 PM CLERK OPERATOR Pulse 72 09/14/2020 2:30 PM CLERK OPERATOR Temperature 36 C (96.8 F) 09/14/2020 2:03 PM CLERK OPERATOR Respiratory Rate 20 09/14/2020 2:30 PM CLERK OPERATOR Oxygen Saturation 91% 09/14/2020 2:30 PM CLERK OPERATOR Inhaled Oxygen Concentration - - Weight 108.9 kg (240 lb) 09/11/2020 10:05 AM CLERK OPERATOR Height 182.9 cm (6') 09/11/2020 10:05 AM CLERK OPERATOR Body Mass Index 32.55 09/11/2020 10:05 AM CLERK OPERATOR Plan of Treatment Health Maintenance Due Date Last Done Comments Depression Screening 1945 Hepatitis C Screening 1945 Hepatitis B Screening 1963 Pneumococcal vaccine 65+ (1 of 1 - PCV) 1995 Zoster Vaccine (1 of 2) 1995 Abdominal Aortic Aneurysm (A AA) Screen 2010 Well Visit 65+ 2010 Fall Risk Assessment 09/14/2021 09/14/2020 Influenza Vaccine (#1) 2024 0, 06/08/2020, 06/11/2019, Additional history exists DTaP/Tdap/Td Vaccine (2 - Td or Tdap) 12/24/2028 12/24/2018 Medical Devices Implanted Type Area Gaming Associate Device Identifier Shelf Expiration Date Model / Serial / Lot Depuy Mitek [id number] Quickanchor Plus Orthocord 2-0 V-5 Mini [place] Suture - [id number] Implanted:Qty: 1 on 09/14/2020 by Debbie Rivera MD PhD at [facility] Right: Wrist Depuy Mitek 01/29/2023 [id number] / / [id number] [place] [address] HUMANA CHOICE MEDICARE PPO HUMANA MEDICARE HMO HUMANA MEDICARE HMO Care Teams Law Clerk Relationship Specialty Start Date End Date Cb Bennett DO PCP - General Internal Medicine 09/22/18
--- OUTSIDE RECORDS SUMMARY | 2024-12-25 13:30 | XMS_ITS | Clinical Summary ---
Author Organization [facility] Address [address] [place] [id number] Phone Care Team Providers Care Mirror Finishing Machine Operator Name Role Phone TammyCb hendricks Primary Care Provider [phone] Allergies No known active allergies Medications ADVAIR DISKUS 250-50 MCG/DOSE diskus inhaler INL 1 PUFF PO Q 12 H IN THE MORNING AND IN THE EVENING 2 9 Active albuterol HFA (PROAIR HFA) 108 (90 Base) MCG/ACT inhaler inhale 2 puff by inhalation route every 4 - 6 hours as needed as needed 9 Active allopurinol (ZYLOPRIM) 100 MG tablet Take 1 tablet by mouth daily. 8 Active benzonatate (TESSALON) 100 MG capsule TK 1 C PO TID PRF COUGH 0 9 Active simvastatin (ZOCOR) 20 MG tablet TAKE 1 TABLET AT BEDTIME 9 Active Saw [place] 450 MG capsule Take 450 mg by mouth 2 times daily Active esomeprazole (NexIUM) [address] capsule Take 20 mg by mouth daily Active colchicine 0.6 MG tablet TAKE TWO TABLETS AND THEN TAKE 1 TABLET 1 HOUR LATER 1 Active methocarbamol (ROBAXIN) 750 MG tablet Take 750 mg by mouth 3 (three) times a day 1 Active naproxen (NAPROSYN) 500 MG tablet Take 500 mg by mouth 2 (two) times a day if needed for pain 1 Active hydroCHLOROthia zide (HYDRODIURIL) 25 MG tablet TAKE 1 TABLET EVERY DAY 90 tablet 4 2 Active amLODIPine (NORVASC) 10 MG tablet TAKE 1 TABLET EVERY DAY 90 tablet 4 2 Active lisinopril (PRINIVIL) 40 MG tablet 2 Active Active Problems Problem Noted Date Diagnosed Date Arthritis of first carpometacarpal joint of righ t hand 09/08/2020 Overview (01/10/2021): Added automatically from request for surgery [id number] Added automatically from request for surgery [id number] Carpal tunnel syndrome of right wrist 09/08/2020 Overview (01/10/2021): Added automatically from request for surgery [id number] Added automatically from request for surgery [id number] Hand joint laxity 09/08/2020 Overview (01/10/2021): Added automatically from request for surgery [id number] Added automatically from request for surgery [id number] 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 12/24/2018 Chronic kidney disease, stage 3 (moderate) 12/16 Hyperlipidemia 12/16/2018 Other abnormal glucose 12/16/2018 Cough 11/23/2018 Acute bronchitis 11/12/2018 Knee pain 07/30/2018 Gouty arthritis of toe 07/03/2018 Essential hypertension 04/15/2018 Immunizations Immunization Administration Dates Next Due Influenza Split High Dose Preservative Free IM 0 05/18/2017,07/12/2015 Influenza TIV (IM) 06/23/2014,08/04/2012 Influenza, Injectable, Quadrivalent 06/08/2020 Sars-cov-2, Unspecified 11/07/2020 Tdap 12/24/2018 Family History Medical History Relation Comments Coronary artery disease Brother Diabetes Brother Hypertension Brother Kidney disease Brother Hypertension Father Colon cancer Mother Hypertension Mother Coronary artery disease Sister Relation Status Comments Brother Father Mother Sister Social History Tobacco Use Types Packs/Day Years Used Date Smoking Tobacco: Former Smokeless Tobacco: Never Tobacco Cessation:Counseling Given: Not Answered Alcohol Use Standard Drinks/Week Comments No 0 (1 standard drink = 0.6 oz pur e alcohol) AUDIT-C Answer Date Recorded Frequency of Alcohol Consumption Never 02/07/2019 Average Number of Drinks Not on file 019 Frequency of Binge Drinking Not on file 05/2019 Sex and Gender Information Value Date Recorded Sex Assigned at Not on file Legal Sex Male 9:33 AM MDT Gender Identity Not on file Sexual Orientation Not on file 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 Not on file Not on file Not on file Last Filed Vital Signs Vital Sign Reading Time Taken Comments Blood Pressure 136/84 07/10/2022 3:49 PM FOAMITE MIXER Pulse - - Temperature 36.7 C (98.1 F) 07/10/2022 3:49 PM FOAMITE MIXER Respiratory Rate 18 07/10/2022 3:49 PM FOAMITE MIXER Oxygen Saturation - - Inhaled Oxygen Concentration - - Weight 108 kg (237 lb 6.4 oz) 07/10/2022 3:49 PM FOAMITE MIXER Height 185.4 cm (6' 1 ) 07/10/2022 3:49 PM FOAMITE MIXER Body Mass Index 31.32 07/10/2022 3:49 PM FOAMITE MIXER Plan of Treatment Health Maintenance Due Date Last Done Comments Pneumococcal PPSV23/PCV13 65 + Years / Low and Medium Risk (1 of 4 - PCV) 1995 Influenza Vaccine (Season Ended) 2025 06/23/20 14, 08/04/2012 Insurance HUMANA MEDICARE ADVANTAGE Care Teams Mirror Finishing Machine Operator Relationship Specialty Start Date End Date Cb Bennett DO [address] [place] [id number] PCP - General Internal Medicine 01/26/19
--- OUTSIDE RECORDS SUMMARY | 2024-12-25 13:30 | XMS_ITS | Referral Summary ---
Author Organization [facility] [place] [address] Address [address] [place] [address] Care Team Providers Care Magistrate Judge Name Role Phone Cb Bennett DO Primary Care Provider [phone] Allergies No known active allergies Medications albuterol [...] (09/08/2020): Added automatically from request for surgery [id number] Arthritis of carpometacarpal (CMC) joint of righ t thumb 09/08/2020 Overview (09/08/2020): Added automatically from request for surgery [id number] Hand joint laxity, right 09/08/2020 Overview (09/08/2020): Added automatically from request for surgery [id number] Social History Tobacco Use Types Packs/Day Years Used Date Smoking Tobacco: Former Cigarettes 2 50 1 951 - 2000 Smokeless Tobacco: Never Alcohol Use Standard Drinks/Week Comments Not Currently 0 (1 standard drink = 0.6 oz pure alcohol) last use 1996, past excessive use Sex and Gender Information Value Date Recorded Sex Assigned at Not on file Legal Sex Male 1:49 AM DIGITAL CIRCUIT DESIGNER Gender Identity Male 08/29/2020 7:16 AM DIGITAL CIRCUIT DESIGNER Sexual Orientation Straight 08/29/2020 7: 16 AM DIGITAL CIRCUIT DESIGNER Last Filed Vital Signs Vital Sign Reading Time Taken Comments Blood Pressure 131/67 09/14/2020 2:30 PM DIGITAL CIRCUIT DESIGNER Pulse 72 09/14/2020 2:30 PM DIGITAL CIRCUIT DESIGNER Temperature 36 C (96.8 F) 09/14/2020 2:03 PM DIGITAL CIRCUIT DESIGNER Respiratory Rate 20 09/14/2020 2:30 PM DIGITAL CIRCUIT DESIGNER Oxygen Saturation 91% 09/14/2020 2:30 PM DIGITAL CIRCUIT DESIGNER Inhaled Oxygen Concentration - - Weight 108.9 kg (240 lb) 09/11/2020 10:05 AM DIGITAL CIRCUIT DESIGNER Height 182.9 cm (6') 09/11/2020 10:05 AM DIGITAL CIRCUIT DESIGNER Body Mass Index 32.55 09/11/2020 10:05 AM DIGITAL CIRCUIT DESIGNER Plan of Treatment Not on file Medical Devices Implanted Type Area Recycle Driver Device Identifier Shelf Expiration Date Model / Serial / Lot Depuy Mitek [id number] Quickanchor Plus Orthocord 2-0 V-5 Mini [place] Suture - [id number] Implanted:Qty: 1 on 09/14/2020 by Debbie Rivera MD PhD at [facility] Right: Wrist Depuy Mitek 01/29/2023 [id number] / / [id number] Insurance [employer] MEDICARE O HUMANA MEDICARE O [facility] MEDICARE HMO Care Teams Magistrate Judge Relationship Specialty Start Date End Date Cb Bennett DO PCP - General Internal Medicine 09/22/18
--- NOTE | 2024-12-25 13:53 | ED_ITS ---
HPI - Recheck/Abnormal Lab/Rx General Chief Complaint: Recheck/Abnormal Lab/Rx Stated Complaint: DIZZINESS, ELEVATED BLOOD SUGAR Time Seen by Provider: 12/25/24 13:41 History of Present Illness HPI narrative: 79-year-old male with a past medical history including prediabetes, hypertension and CKD. Patient presents to the emergency room with chief complaint of increased thirst, increased urination and dizziness. He went to urgent care today and had high glucometer readings at home. Referred from urgent care for suspension of diabetes and complication of hyperglycemia. Patient is not any acute distress, no recent illnesses or injuries. No insulin use her metformin use. He follows up with his primary care provider and urologist regularly every 6 months. No recent health concerns. No nausea, vomiting, headache, vision changes. No abdominal pain, back pain, fever, chills, dysuria. Has been drinking significant amounts of water and also urinating frequently throughout the evenings. Related Data Home Medications ?Medication ?Instructions ?Recorded ?Confirmed ?Last Taken ?Type beta-sitosterol 125 mg-vit D3 10 tablet PO 05/07/23 10/12/24 Unknown History [id number] 250 mg tablet (Prostate Max Plus) Allergies Allergy/AdvReac Type Severity Reaction Status Date / Time Chlorine Allergy Intermediate SWELLING, Uncoded 12/25/24 13:29 SOB Review of Systems 2 Review of Systems: As reviewed above in HPI [facility] Past Medical History Medical History COPD (chronic obstructive pulmonary disease) Chronic back pain Peptic ulcer Proteinuria Gout Pre-diabetes Hemoglobin A1c was 6.3 09/02/2019. Benign colon polyp Hyperlipidemia Hypertension Obesity Asthma Solitary pulmonary nodule Osteoarthritis Mumps Measles Surgical History Surgical History H/O rectal polypectomy History of right knee joint replacement H/O hand surgery 09/2020 Status post excision of lipoma Right shoulder. History of left knee replacement September 2011. Family History Family History Mother Hypertension Carcinoma of colon Brain bleed Father Family history of coronary artery disease Hypertension Gastric artery aneurysm Sibling Family history of coronary artery disease Hypertension Acute myocardial infarction Renal failure Diabetes mellitus Other Family history of arthritis Family history of cardiovascular disease Family history of kidney disease Social History Social History Social History: The patient lives in [place]. He lives at home with his Kiya. 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 He quit in 1999. He used to be a heavy drinker as well but has abstained since 1996. He has 1 daughter. Code status full code Caffeine-coffee/tea Smoking packs per day: 3 Smoking cigarettes per day: 60.0 Years smoked: 52 Smoking pack-years: 156.00 Smoking status: Former smoker Tobacco type: cigarettes Second hand tobacco smoke exposure: Yes Smoking end date: 09/01/00 Alcohol intake: never Substance use: never Substance use type: does not use Do You Feel Safe in your Home?: Yes Lack of Transportation: No Lack of Food: Never True Current Housing: I Have Housing Concerned About Future Housing: No Difficulty Paying Gas/Electric Bills: No Difficulty Paying for Meds: No Currently Unemployed: No Education: Bachelor's Degree Difficulty w/ Childcare or Family Care: No Living arrangements: with family Gender identity (if verbalized by the patient): Male Spiritual care concerns: No Exam 2 Narrative: GENERAL: [Well-appearing, well-nourished, and in no acute distress.] HEAD: [Normocephalic, atraumatic.] EYES: [PERRLA and EOMI.] ENT: Nares clear, no rhinorrhea or epistaxis. Mucous membranes dry. NECK: Supple. CHEST: [Clear to auscultation. No respiratory distress.] HEART: [Regular rate and rhythm]. No murmur heard. [Normal peripheral pulses.] ABDOMEN: [Soft, nondistended], [nontender], [No rigidity or guarding] EXTREMITIES: Normal range of motion. [No edema.] SKIN: Warm, dry, no rash. NEURO: [No focal deficits]. Alert and oriented [x3.] PSYCH: [Normal mood and affect.] Course Vital Signs Vital signs: Vital Signs Temperature 36.6 C 12/25/24 13:42 Pulse Rate 84 12/25/24 13:42 Respiratory Rate 16 12/25/24 13:42 Blood Pressure 135/62 12/25/24 13:42 Pulse Oximetry 98 12/25/24 13:42 Oxygen Delivery Room Air 12/25/24 13:42 Temperature 36.6 C 12/25/24 13:42 Pulse Rate 84 12/25/24 13:42 Respiratory Rate 16 12/25/24 13:42 Blood Pressure 135/62 12/25/24 13:42 Pulse Oximetry 98 12/25/24 13:42 Oxygen Delivery Room Air 12/25/24 13:42 MDM - Recheck/Abnormal Lab/Rx MDM Narrative Medical decision making narrative: 79-year-old male with prediabetes and hypertension as well as CKD presenting for elevated blood sugar readings. Glucometer at home read high. Patient is a prediabetic and not taking insulin or metformin. Denies any nausea, vomiting, abdominal pain, fever, chills. No recent hospital visits or recent illnesses. He is otherwise well-appearing not any distress but is dry and mucous membranes with high glue, reading. Referred from urgent care and report called head. Low suspicion for diabetic emergency such as DKA or HHS but new onset diabetes or progression of his prediabetes is suspected. VBG, beta hydroxybutyrate, CBC, CMP, point care glucose, urinalysis ordered. He was given 2 L of fluid bolus and re-evaluated. Patient's laboratory studies show hyperglycemia of 756 with pseudo hyponatremia that corrects to normal. Slight ketosis on beta hydroxybutyrate level but no acidosis on VBG or BMP. He has a pre renal ANAY on CKD. Insulin bolus and drip was started at this time with potassium supplementing normal saline fluids for his potassium 4.3. I discussed the case with the entry level management Dr. Pena who accepted the patient to the ICU at this time with recommendations for acute for labs. Spoke to the hospitalist currently being covered by [facility] who accepted the patient to the ICU at this time. Patient re-evaluated and stable and made aware of the plan for admission. Medical Records Attestation: I reviewed the patient's medical records. Lab Data Attestation: I reviewed the patient's lab results. 12/25/24 13:51 12/25/24 13:51 Labs: Lab Results 12/25/24 12/25/24 12/25/24 Range/Units 13:51 13:56 14:10 WBC 7.7 (4.5-10.0) K/mm3 RBC 4.56 L (4.6-6.20) M/mm3 Hgb 13.5 L (14.0-18.0) g/dL Hct 40.6 L (42.0-52.0) % MCV 89.0 (80-100) fl MCH 29.6 (26-34) pg MCHC 33.3 (32-36) g/dl RDW 13.5 (11.5-14.5) % Plt Count 180 (150-375) k/mm3 MPV 13.0 H (7.4-10.4) fl Immature Gran % (Auto) 0.7 H (0-0.5) % Neut % (Auto) 74.5 H (45.5-73.1) % Lymph % (Auto) 11.4 L (18.3-44.2) % Mckean % (Auto) 9.7 H (2.6-8.5) % Eos % (Auto) 2.7 (0-4.4) % Baso % (Auto) 1.0 (0.2-1.2) % Lymph # (Auto) 0.87 L (0.9-3.2) K/mm3 Mckean # (Auto) 0.7 H (0.1-0.6) K/mm3 Eos # (Auto) 0.2 (0-0.3) K/mm3 Baso # (Auto) 0.1 (0.0-0.1) K/mm3 Abs Immat Gran (auto) 0.05 H (0.00-0.031) K/mm3 Absolute Neuts (auto) 5.7 (1.3-6.7) K/mm3 Absolute Nucleated RBC 0.000 (0.0-0.012) K/mm3 Nucleated RBC % 0.0 (0.0-0.2) % Sodium 128 L (137-145) mmol/L Potassium 4.3 (3.4-5.0) mmol/L Chloride 90 L (98-107) mmol/L Carbon Dioxide 25 (22-30) mmol/L Anion Gap 13 H (4-12) mmol/L BUN 45 H D (9-20) mg/dL Creatinine 2.39 H (0.7-1.3) mg/dL Estim Creat Clear Calc 29 ml/min Estimated GFR 26 L (59 - ) Glucose 756 H* (65-110) mg/dL POC Capillary Glucose > 500 H* (65-105) mg/dl Hemoglobin A1c 13.4 H (<5.7) % Calcium 9.1 (8.4-10.2) mg/dL Phosphorus 3.4 (2.5-4.5) mg/dL Magnesium 1.5 L (1.6-2.3) mg/dL Total Bilirubin 1.3 (0.2-1.3) mg/dL AST 23 (17-59) U/L ALT 19 (6-50) U/L Alkaline Phosphatase 99 (38-126) U/L Total Protein 7.0 (6.3-8.2) g/dL Albumin 4.2 (3.5-5.1) g/dL Beta-Hydroxybutyrate/Acetoacetate 1.24 H (0.02-0.27) mmol/L Urine Color Yellow (Yellow) Urine Appearance Cloudy H (Clear) Urine pH 5.0 (5.0-9.0) Ur Specific [place] 1.027 (1.001-1.035) Urine Protein 1+ H (Negative) mg/dL Urine Glucose (UA) 3+ H (Negative) mg/dL Urine Ketones Trace H (Negative) mg/dL Ur Blood (Man) Negative (Negative) Urine Nitrate Negative (Negative) Urine Bilirubin Negative (Negative) Urine Urobilinogen 0.2 (<2.0) mg/dL Add Ur Microanalysis Reviewed Leukocyte Esterase Rfl Negative (Negative) MARICRUZ/UL Urine RBC 0-2 (0-2) /hpf Urine WBC 0-5 (0-3) /hpf Ur Squamous Epith Cells Occasional (Few) /hpf Urine Bacteria None seen /hpf Urine Casts 11-20 Hyaline Casts 1-2 (None) /lpf Granular Casts 1-2 H (None) /lpf Urine Mucus Present /lpf ABG Data ABG results: 12/25/24 14:08 VBG pH 7.395 VBG pCO2 39.6 L VBG pO2 37.2 VBG HCO3 23.7 L O2 Delivery Device Room air O2 Liters/Min Not Reportable FiO2 21 Attestation: I personally reviewed and interpreted this ABG as follows: Interpretation: Normal pH, pCO2 and bicarb. Critical Care Time Critical Care Time Critical Care Time: Yes Total Critical Care Time: 36 Discharge Plan Discharge Clinical Impression: Diabetes mellitus with ketosis, Severe hyperglycemia due to diabetes mellitus, Polyuria, Polydipsia Patient Disposition: Still a Patient Condition: Stable Patient Language: Mexican Prescriptions: No Action Prostate Max Plus 125 mg-10 mcg- 250 mg tablet PO amlodipine 10 mg tablet See Rx Instructions .ROUTE .COMPLEX Qty: 90 3RF Dose Instruction: TAKE 1 TABLET EVERY DAY Rx Instructions: TAKE 1 TABLET EVERY DAY lisinopril 40 mg tablet 40 mg PO DAILY Qty: 90 1RF simvastatin 20 mg tablet 20 mg PO DAILY Qty: 90 1RF tamsulosin 0.4 mg capsule See Rx Instructions .ROUTE .COMPLEX Qty: 90 3RF Dose Instruction: TAKE 1 CAPSULE AT BEDTIME Rx Instructions: TAKE 1 CAPSULE AT BEDTIME hydrochlorothiazide 25 mg tablet 25 mg PO DAILY Qty: 90 3RF allopurinol 100 mg tablet 100 mg PO DAILY Qty: 90 1RF fluticasone propion-salmeterol 250-50 mcg/dose blister with device See Rx Instructions .ROUTE .COMPLEX Qty: 180 3RF Dose Instruction: INHALE 1 PUFF TWICE DAILY Rx Instructions: INHALE 1 PUFF TWICE DAILY Follow-up/Referrals: PHYSICIAN,FUR EXAMINER [Non-Staff] - Time of Disposition: 14:53
[2024-12-25 13:58] LABS: Glucose Point of Care > 500 mg/dl (65-105)
[2024-12-25 14:05] LABS: Basophils Absolute Auto 0.1 K/mm3 (0.0-0.1); Eosinophils Absolute Auto 0.2 K/mm3 (0-0.3); Eosinophils Percent Auto 2.7 % (0-4.4); Hematocrit 40.6 % (42.0-52.0); Hemoglobin 13.5 g/dL (14.0-18.0); Immature Granulocyte Absolute 0.05 K/mm3 (0.00-0.031); Immature Granulocyte Percent A 0.7 % (0-0.5); Lymphocytes Absolute Auto 0.87 K/mm3 (0.9-3.2); Lymphocytes Percent Auto 11.4 % (18.3-44.2); Mean Corpuscular HGB Conc 33.3 g/dl (32-36); Mean Corpuscular Hemoglobin 29.6 pg (26-34); Monocytes Absolute Auto 0.7 K/mm3 (0.1-0.6); Monocytes Percent Auto 9.7 % (2.6-8.5); Neutrophils Absolute Auto 5.7 K/mm3 (1.3-6.7); Neutrophils Percent Auto 74.5 % (45.5-73.1); Platelet Count Result 180 k/mm3 (150-375); Red Blood Count 4.56 M/mm3 (4.6-6.20); Red Cell Distribution Width 13.5 % (11.5-14.5); White Blood Count 7.7 K/mm3 (4.5-10.0)
[2024-12-25] MEDS: SODIUM CHLORIDE 0.9% IV 1,000 ML 999 ML IV CONT (14:10)
[2024-12-25] MEDS: LACTATED RINGERS 1,000 ML 999 ML IV CONT (14:10)
[2024-12-25 14:11] LABS: Fractional Inspired Oxygen 21 %; HCO3 VBG 23.7 mEq/l (24.0-30.0); PCO2 VBG 39.6 mmHg (42.0-48.0); PO2 VBG 37.2 mmHg (35.0-45.0); pH VBG 7.395 (7.300-7.400)
[2024-12-25 14:12] LABS: Device ROOM AIR
--- OUTSIDE RECORDS SUMMARY | 2024-12-25 14:14 | XMS_ITS | Referral Summary ---
Author Organization [facility] [address] Address [address] [place] [address] Care Team Providers Care Janitor Head Name Role Phone Cb Bennett DO Primary Care Provider [phone]- [phone] Allergies No known active allergies Medications albuterol [...] (09/08/2020): Added automatically from request for surgery [id number] Arthritis of carpometacarpal (CMC) joint of righ t thumb 09/08/2020 Overview (09/08/2020): Added automatically from request for surgery [id number] Hand joint laxity, right 09/08/2020 Overview (09/08/2020): Added automatically from request for surgery [id number] Social History Tobacco Use Types Packs/Day Years Used Date Smoking Tobacco: Former Cigarettes 2 50 1 951 - 2000 Smokeless Tobacco: Never Alcohol Use Standard Drinks/Week Comments Not Currently 0 (1 standard drink = 0.6 oz pure alcohol) last use 1996, past excessive use Sex and Gender Information Value Date Recorded Sex Assigned at Not on file Legal Sex Male 1:49 AM COMMERCIAL ART INSTRUCTOR Gender Identity Male 08/29/2020 7:16 AM COMMERCIAL ART INSTRUCTOR Sexual Orientation Straight 08/29/2020 7: 16 AM COMMERCIAL ART INSTRUCTOR Last Filed Vital Signs Vital Sign Reading Time Taken Comments Blood Pressure 131/67 09/14/2020 2:30 PM COMMERCIAL ART INSTRUCTOR Pulse 72 09/14/2020 2:30 PM COMMERCIAL ART INSTRUCTOR Temperature 36 C (96.8 F) 09/14/2020 2:03 PM COMMERCIAL ART INSTRUCTOR Respiratory Rate 20 09/14/2020 2:30 PM COMMERCIAL ART INSTRUCTOR Oxygen Saturation 91% 09/14/2020 2:30 PM COMMERCIAL ART INSTRUCTOR Inhaled Oxygen Concentration - - Weight 108.9 kg (240 lb) 09/11/2020 10:05 AM COMMERCIAL ART INSTRUCTOR Height 182.9 cm (6') 09/11/2020 10:05 AM COMMERCIAL ART INSTRUCTOR Body Mass Index 32.55 09/11/2020 10:05 AM COMMERCIAL ART INSTRUCTOR Plan of Treatment Not on file Medical Devices Implanted Type Area Powertrain Control Systems Engineer Device Identifier Shelf Expiration Date Model / Serial / Lot Depuy Mitek [id number] Quickanchor Plus Orthocord 2-0 V-5 Mini [place] Suture - [id number] Implanted:Qty: 1 on 09/14/2020 by Debbie Rivera MD PhD at [facility] Right: Wrist Depuy Mitek 01/29/2023 [id number] / / [id number] Insurance [employer] MEDICARE O HUMANA MEDICARE O [facility] MEDICARE HMO Care Teams Janitor Head Relationship Specialty Start Date End Date Cb Bennett DO PCP - General Internal Medicine 09/22/18
--- OUTSIDE RECORDS SUMMARY | 2024-12-25 14:14 | XMS_ITS | Clinical Summary ---
Author Organization [facility] [place] [address] Address [address] [place] [address] Care Team Providers Care Cupola Man Name Role Phone Cb Bennett DO Primary Care Provider [phone]- [phone] Allergies No known active allergies Medications albuterol [...] (09/08/2020): Added automatically from request for surgery [id number] Arthritis of carpometacarpal (CMC) joint of righ t thumb 09/08/2020 Overview (09/08/2020): Added automatically from request for surgery [id number] Hand joint laxity, right 09/08/2020 Overview (09/08/2020): Added automatically from request for surgery [id number] Surgical History Surgery Date Site/Laterality Comments TOTAL [...] on file Legal Sex Male 1:49 AM COLLECTIONS AGENT Gender Identity Male 08/29/2020 7:16 AM COLLECTIONS AGENT Sexual Orientation Straight 08/29/2020 7: 16 AM COLLECTIONS AGENT Obstetrics History Last Filed Vital Signs Vital Sign Reading Time Taken Comments Blood Pressure 131/67 09/14/2020 2:30 PM COLLECTIONS AGENT Pulse 72 09/14/2020 2:30 PM COLLECTIONS AGENT Temperature 36 C (96.8 F) 09/14/2020 2:03 PM COLLECTIONS AGENT Respiratory Rate 20 09/14/2020 2:30 PM COLLECTIONS AGENT Oxygen Saturation 91% 09/14/2020 2:30 PM COLLECTIONS AGENT Inhaled Oxygen Concentration - - Weight 108.9 kg (240 lb) 09/11/2020 10:05 AM COLLECTIONS AGENT Height 182.9 cm (6') 09/11/2020 10:05 AM COLLECTIONS AGENT Body Mass Index 32.55 09/11/2020 10:05 AM COLLECTIONS AGENT Plan of Treatment Health Maintenance Due Date [...] 12/24/2028 12/24/2018 Medical Devices Implanted Type Area Machinery Rigger Device Identifier Shelf Expiration Date Model / Serial / Lot Depuy Mitek [id number] Quickanchor Plus Orthocord 2-0 V-5 Mini [place] Suture - [id number] Implanted:Qty: 1 on 09/14/2020 by Debbie Rivera MD PhD at [facility] Right: Wrist Depuy Mitek 01/29/2023 [id number] / / [id number] [place] [address] HUMANA CHOICE MEDICARE PPO HU[employer]NA MEDICARE HMO HU[employer]NA MEDICARE HMO Care Teams Cupola Man Relationship Specialty Start Date End Date Cb Bennett DO PCP - General Internal Medicine 09/22/18
--- OUTSIDE RECORDS SUMMARY | 2024-12-25 14:14 | XMS_ITS | Continuity of Care Document ---
Author Organization [facility] [place] Address [address] [place] [address] Phone Care Team Providers Care Summer Clerk Name Role Phone Armando PT,MPT,ATC, Yasir Unavailable [...] Diagnoses Date Provider Providers Copied on Encounter [facility] [address] [place] [address], [id number], tel:[phone] [facility] No Information Mar-1 8-202 0 Armando Ching , [place], [place]. Referring Provider: Bib Watson, [facility] [address] [place] [address] [address] [facility], [place], [place], [facility]. tel:[phone] [place] [address] [place] [address], [id number], tel:[phone] [facility] No Information Mar-1 6-202 0 Armando Ch[place] , [place], [place]. Referring Provider: Bib Watson, [facility] [address] [place] [address], [place], [place], [facility]. tel:[phone] [place] [address] [place] [address], [id number], tel:[phone] [facility] No Information Mar-1 2-202 0 Sommer Childs . Referring Provider: Bib Watson, [facility] [address] [place] [address] [address] [facility], [place], [place], [facility]. tel:[phone] [facility] [address] [place] [address], [id number], tel:[phone] [facility] No Information Mar-0 9-202 0 Armando Ch[place] , [place], [place]. Referring Provider: Bib Watson, [facility] [address] [place] [address] [address] [facility], [place], [place], [facility]. tel:[phone] [facility] [address] [place] [address] [address], [place], [place], [id number], tel:[phone] [facility] No Information Mar-0 6-202 0 Armando Ch[place] , [place], [place]. Referring Provider: Bib Watson, [facility] [address] [place] [address] [address], [place], [place], [facility]. tel:[phone] [facility] [address], [place], [place], [id number], tel:[phone] [facility] No Information 0 Roberts Yasir. , [place], [place]. Referring Provider: Bib Watson, [facility] [address] [place] [address] [address], [place], [place], [facility]. tel:[phone] [facility] [address], [place], [place], [id number], [place] tel:[phone] [facility] No Information 0 Roberts Yasir. , [place], [place]. Referring Provider: Bib Watson, [facility] [address] [place] [address] [address] [facility], [place], [place], [facility]. tel:[phone] [place], [place] [address], [place], [place], [id number], [place] tel:[phone] [facility] No Information 0 Roberts Yasir. , [place], [place]. Referring Provider: Bib Watson, [facility] [address] [place] [address] [address], [place], [place], [facility]. tel:[phone] [address], [place], [id number], [place] tel:[phone] [facility] No Information 0 Roberts Yasir. , [place], [place]. Referring Provider: Bib Watson, [facility] [address] [place] [address] [address], [place], [place], [facility]. tel:[phone] [facility] [address] [place], [place] [address], [place], [place], [id number], [place] tel:[phone] [facility] No Information 0 Armando Sandovaln. , [place], [place]. Referring Provider: Bib Watson, [facility] [address] [place] [address] [address], [place], [place], [facility]. tel:[phone], [place], [place], [id number], tel:[phone] [facility] No Information 0 [facility]. Referring Provider: Bib Watson, [facility] [address] [place] [address] [address], [place], [place], [facility]. tel:[phone] [address], [place], [place], [id number], tel:[phone] [facility] No Information 0 [place], [place], . Referring Provider: Bib Watson, [facility] [address] [place] [address] [address], [place], [facility]. tel:[phone] Family History Family Member Type Diagnosis Age At Onset No Information Payers Payer name Insurance type Covered alliance party ID Authormekhicatalina barrettroverto(s) [employer] Medicare Replacement 16 [id number] Social History Type Description Quantity Date Captured [...]
--- OUTSIDE RECORDS SUMMARY | 2024-12-25 14:14 | XMS_ITS | Clinical Summary ---
Author Organization [facility] Address [address] [place] [address] Phone Care Team Providers Care Occupational Therapy Asst Name Role Phone TammyCb hendricks Primary Care Provider [phone] Allergies No known active allergies Medications ADVAIR [...] 1 TABLET AT BEDTIME 9 Active Saw [place] 450 MG capsule Take 450 mg by [...] (01/10/2021): Added automatically from request for surgery [id number] Added automatically from request for surgery [id number] Carpal tunnel syndrome of right wrist 09/08/2020 Overview (01/10/2021): Added automatically from request for surgery [id number] Added automatically from request for surgery [id number] Hand joint laxity 09/08/2020 Overview (01/10/2021): Added automatically from request for surgery [id number] Added automatically from request for surgery [id number] 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 [...] 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 Not on file Not on file Last Filed Vital Signs Vital Sign Reading Time Taken Comments Blood Pressure 136/84 07/10/2022 3:49 PM SCREEN ROOM OPERATOR Pulse - - Temperature 36.7 C (98.1 F) 07/10/2022 3:49 PM SCREEN ROOM OPERATOR Respiratory Rate 18 07/10/2022 3:49 PM SCREEN ROOM OPERATOR Oxygen Saturation - - Inhaled Oxygen Concentration - - Weight 108 kg (237 lb 6.4 oz) 07/10/2022 3:49 PM SCREEN ROOM OPERATOR Height 185.4 cm (6' 1 ) 07/10/2022 3:49 PM SCREEN ROOM OPERATOR Body Mass Index 31.32 07/10/2022 3:49 PM SCREEN ROOM OPERATOR Plan of Treatment Health Maintenance Due Date Last Done Comments Pneumococcal PPSV23/PCV13 65 + Years / Low and Medium Risk (1 of 4 - PCV) 1995 Influenza Vaccine (Season Ended) 2025 06/23/20 14, 08/04/2012 Insurance HUMANA MEDICARE ADVANTAGE Care Teams Occupational Therapy Asst Relationship Specialty Start Date End Date Cb Bennett DO [address] [place] [id number] PCP - General Internal Medicine 01/26/19
[2024-12-25 14:18] LABS: Beta-Hydroxybutyrate/Acetoacetate 1.24 mmol/L (0.02-0.27); Hemoglobin A1C 13.4 % (<5.7)
[2024-12-25 14:21] LABS: Alanine Aminotransferase 19 U/L (6-50); Albumin Level 4.2 g/dL (3.5-5.1); Alkaline Phosphatase 99 U/L (38-126); Anion Gap 13 mmol/L (4-12); Aspartate Amino Transferase 23 U/L (17-59); Bilirubin,Total 1.3 mg/dL (0.2-1.3); Blood Urea Nitrogen 45 mg/dL (9-20); Calcium 9.1 mg/dL (8.4-10.2); Carbon Dioxide 25 mmol/L (22-30); Chloride 90 mmol/L (98-107); Estimated CRCL calculation 29 ml/min; Estimated Glomerular Filt Rate 26; Glucose 756 mg/dL (65-110); Magnesium 1.5 mg/dL (1.6-2.3); Phosphorus 3.4 mg/dL (2.5-4.5); Potassium 4.3 mmol/L (3.4-5.0); Sodium 128 mmol/L (137-145)
[2024-12-25 14:37] LABS: Add Urine Microscopic? YES; Appearance Urine Cloudy (Clear); Bacteria Urine None Seen /hpf; Bilirubin Urine Negative (Negative); Blood Urine Negative (Negative); Color Urine Yellow (Yellow); Glucose Urine UA 3+ mg/dL (Negative); Ketones Urine Trace mg/dL (Negative); Leukocyte Esterase Ur Negative LEU/UL (Negative); Mucus Urine Present /lpf; Need Manual Microscopic Reviewed; Nitrate Urine Negative (Negative); Protein Urine 1+ mg/dL (Negative); RBC Urine 0-2 /hpf (0-2); Specific Grav Ur 1.027 (1.001-1.035); Squamous Epithelial Cell Urine Occasional /hpf (Few); Urobilinogen Urine 0.2 mg/dL (<2.0); WBC Urine 0-5 /hpf (0-3)
[2024-12-25] MEDS: INSULIN HUMAN REGULAR (*BKC) 100 UNITS/ML 5.2 UNITS IV PUSH (14:46)
--- NOTE | 2024-12-25 15:00 | P.HP_ITS ---
H&P: HPI History of Present Illness Date/Time: 12/25/24 16:00 Chief Complaint: High blood sugar. Narrative: This is a very pleasant 79-year-old male with type 2 diabetes mellitus, hypertension, dyslipidemia, chronic kidney disease stage 3, and benign prostatic hyperplasia who presented to the emergency department from urgent care for further evaluation and treatment of high blood sugar. He tells me that he has been prediabetic for ?years? though his hemoglobin has been as high as 7.0 in December 2023. More recently he has been experiencing polydipsia and polyuria as well as intermittent dizziness and lightheadedness, mainly with position changes. At times he has noticed that his vision is a bit blurry as well. He admits that he has not been very good about his diet for the last 6 weeks, mainly eating fast food as he and his are getting their house of 40 years ready to sell. He used his 's glucometer today which read ?HIGH? and came in for evaluation. He is otherwise feeling okay and denies fever, chills, sweats, cold and flu symptoms, nausea, vomiting, diarrhea, and dysuria. In the ED: Vital signs were stable on arrival. Labs were significant for a sodium of 128, chloride 90, carbon dioxide 25, anion gap 13, BUN 45, creatinine 2.39, glucose 756, magnesium 1.5, beta hydroxybutyrate 1.24, hemoglobin A1c 13.4%. Urinalysis was positive for 1+ protein, 3+ glucose, and trace ketones. VBG showed a pH of 7.395, pCO2 39.6, HC03 23.7. He was given 2 L crystalloid bolus and was started on insulin drip he is being admitted in this setting for further treatment. Review of Systems Review of Systems: 12 systems were reviewed and are negativ e except for as per HPI. [facility] Past Medical History Medical History (Updated 12/25/24 @ 15:10 by Starla Gomez PA-C) Benign prostatic hyperplasia Type 2 diabetes mellitus Vitamin D deficiency Chronic kidney disease, stage 3 Chronic obstructive pulmonary disease Chronic back pain Peptic ulcer Proteinuria Gout Benign colon polyp Hyperlipidemia Hypertension Obesity Asthma Solitary pulmonary nodule Osteoarthritis Mumps Measles Surgical History Surgical History (Updated 12/25/24 @ 16:19 by Starla Gomez PA-C) History of thumb surgery what sounds like right carpometacarpal arthroplasty History of colonoscopy with polypectomy History of right knee joint replacement (2019) Status post excision of lipoma right shoulder History of left knee replacement (2010) Family History Family History Mother Hypertension Carcinoma of colon Brain bleed Father Family history of coronary artery disease Hypertension Gastric artery aneurysm Sibling Family history of coronary artery disease Hypertension Acute myocardial infarction Renal failure Diabetes mellitus Other Family history of arthritis Family history of cardiovascular disease Family history of kidney disease Social History Social History (Updated 12/25/24 @ 15:07 by Starla Gomez PA-C) Social History: Surrogate medical decision maker: Kiya Starks, spouse. Code status: Full code. Smoking packs per day: 3 Smoking cigarettes per day: 60.0 Years smoked: 52 Smoking pack-years: 156.00 Smoking status: Former smoker Tobacco type: cigarettes Second hand tobacco smoke exposure: Yes Smoking end date: 09/01/00 Alcohol intake: former Alcohol use details: No alcohol since 1996. Substance use: never Substance use type: does not use Do You Feel Safe in your Home?: Yes Lack of Transportation: No Lack of Food: Never True Current Housing: I Have Housing Concerned About Future Housing: No Difficulty Paying Gas/Electric Bills: No Difficulty Paying for Meds: No Currently Unemployed: No Education: Bachelor's Degree Difficulty w/ Childcare or Family Care: No Additional living arrangements comments: Lives with in [place]. They have 1 daughter. 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 Spiritual care concerns: No Meds Home Medications and Allergies Home Medications ?Medication ?Instructions ?Recorded ?Confirmed ?Type amlodipine 10 mg tablet See Rx Instructions .Route 05/04/24 12/25/24 Rx .COMPLEX #90 tabs lisinopril 40 mg tablet 40 mg PO DAILY #90 tabs 07/19/24 12/25/24 Rx simvastatin 20 mg tablet 20 mg PO DAILY #90 tabs 07/19/24 12/25/24 Rx tamsulosin 0.4 mg capsule See Rx Instructions .Route 08/16/24 12/25/24 Rx .COMPLEX #90 caps hydrochlorothiazide 25 mg tablet 25 mg PO DAILY #90 tabs 09/27/24 12/25/24 Rx allopurinol 100 mg tablet 100 mg PO DAILY #90 tabs 10/04/24 12/25/24 Rx fluticasone 250 mcg-salmeterol 50 See Rx Instructions .Route 11/08/24 12/25/24 Rx mcg/dose blistr powdr for .COMPLEX #180 blisters inhalation Allergies Allergy/AdvReac Type Severity Reaction Status Date / Time Chlorine Allergy Intermediate SWELLING, Uncoded 12/25/24 13:29 SOB Vital Signs Vital Signs - 24 hr 12/25/24 13:42 Temperature 97.9 F Pulse Rate 84 Respiratory Rate 16 Blood Pressure 135/62 Pulse Oximetry 98 Oxygen Delivery Room Air Exam Narrative: General: Mildly ill-appearing gentleman sitting up in bed in no acute distress. Weight: 104.6 kg. BMI: 31.3. HEENT: PERRL, EOMI. Sclera anicteric. Tacky mucous membranes. Neck: Supple. Respiratory: Lungs are clear to auscultation bilaterally. Cardiovascular: Regular rate and rhythm with S1-S2. Gastrointestinal: Abdomen is soft, nontender, and nondistended with positive bowel sounds. Skin: Warm and dry. No rash or lesions on limited exam. Extremities: No cyanosis or clubbing. 1+ keyanna ankle edema bilaterally. Radial and pedal pulses intact. Neurological: Alert. Cranial nerves 2-12 are grossly intact. No gross focal deficits to casual conversation. Psychiatric: Pleasant and cooperative with depressed mood as he is having to sell the house that he built 40 years ago due to loss of job. Not suicidal. H&P: Results Labs Labs: Short CBC 12/25/24 Range/Units 13:51 WBC 7.7 (4.5-10.0) K/mm3 Hgb 13.5 L (14.0-18.0) g/dL Hct 40.6 L (42.0-52.0) % Plt Count 180 (150-375) k/mm3 BMP 12/25/24 13:51 Sodium 128 L Potassium 4.3 Chloride 90 L Carbon Dioxide 25 BUN 45 H D Creatinine 2.39 H Glucose 756 H* Calcium 9.1 Liver Function 12/25/24 Range/Units 13:51 Total Bilirubin 1.3 (0.2-1.3) mg/dL AST 23 (17-59) U/L ALT 19 (6-50) U/L Alkaline Phosphatase 99 (38-126) U/L Albumin 4.2 (3.5-5.1) g/dL Urine 12/25/24 Range/Units 14:10 Urine Color Yellow (Yellow) Urine Appearance Cloudy H (Clear) Urine pH 5.0 (5.0-9.0) Ur Specific [place]anc 1.027 (1.001-1.035) Urine Protein 1+ H (Negative) mg/dL Urine Glucose (UA) 3+ H (Negative) mg/dL ABG ABG results: 12/25/24 14:08 VBG pH 7.395 VBG pCO2 39.6 L VBG pO2 37.2 VBG HCO3 23.7 L O2 Delivery Device Room air O2 Liters/Min Not Reportable FiO2 21 Assessment and Plan Assessment and plan (1) Diabetic ketoacidosis associated with type 2 diabetes mellitus: Code(s): E11.10 - Type 2 diabetes mellitus with ketoacidosis without coma Status: Acute (2) Acute on chronic kidney failure: Code(s): N17.9 - Acute kidney failure, unspecified; N18.9 - Chronic kidney disease, unspecified Status: Acute (3) Dehydration: Code(s): E86.0 - Dehydration Status: Acute (4) Hypertension: Qualifiers: Hypertension type: essential hypertension Qualified Code(s): I10 - Essential (primary) hypertension Code(s): I10 - Essential (primary) hypertension Status: Acute (5) Hyperlipidemia: Qualifiers: Hyperlipidemia type: unspecified Qualified Code(s): E78.5 - Hyperlipidemia, unspecified Code(s): E78.5 - Hyperlipidemia, unspecified Status: Acute (6) Benign prostatic hyperplasia: Code(s): N40.0 - Benign prostatic hyperplasia without lower urinary tract symptoms Status: Acute (7) Chronic obstructive pulmonary disease: Code(s): J44.9 - Chronic obstructive pulmonary disease, unspecified Status: Acute Plan The patient presented to the emergency department with complaints of polydipsia, polyuria, lightheadedness/dizziness, and occasional blurry vision found to have a ?high? reading on his 's glucometer this morning as detailed in HPI. Labs, imaging, EKG, and all reports were personally reviewed. He meets criteria for mild diabetic ketoacidosis with hyperglycemia, elevated beta hydroxybutyrate, trace ketones in the urine, and increase in anion gap. He received 2 L of crystalloids in the emergency department and will continue to receive judicious IV fluid rehydration. He is currently on an insulin drip which will be titrated per DKA protocol. Continue Q hourly Accu-Cheks and q.4 BMPs to monitor for anion gap closure. Hemoglobin A1c today was 13.4% and he will need to be started on long-acting insulin upon resolution of DKA. Electrolytes will be made replete as needed. I suspect his renal function will improve with IV fluids alone thus will not pursue a further workup at this juncture. Hold hydrochlorothiazide and lisinopril for now and bladder scan to rule out urinary retention. Blood pressures have been reasonable and will be monitored closely. Chronic conditions without acute issues include chronic obstructive pulmonary disease, benign prostatic hyperplasia, and hyperlipidemia. His home medications will be reviewed and resumed as appropriate. Findings and treatment plan were discussed with the patient. Questions were solicited and answered to satisfaction. The patient's medical management will be taken over by the hospitalist team in a.m. Quality VTE Prophylaxis VTE prophylaxis: pharmacologic ordered Hospitalist [facility] Advance Care Plan I have confirmed that the patient's Advanced Care Plan is present, code status is documented, or surrogate decision maker is listed in patient medical record.: Yes Medication Reconciliation The patient is not eligible for med reconciliation; the patient is in a emergent medical situation where delaying treatment would jeopardize the patients health.: Yes Critical Care Time Critical Care Time: Yes Total Critical Care Time: 50 Attestation: Due to a high probability of clinically significant, life threatening deterioration, the patient required my highest level of preparedness to intervene emergently and I personally spent this critical care time directly and personally managing the patient. This critical care time included obtaining a history; examining the patient; pulse oximetry; ordering and review of studies; arranging urgent treatment with development of a management plan; evaluation of patient's response to treatment; frequent reassessment; and discussions with other providers. It was exclusive of separately billable procedures and treating other patients and teaching time. Please see Assessment and Plan section and the rest of the note for further information on patient assessment and treatment.
[2024-12-25] MEDS: INSULIN HUMAN REGULAR (*BKC) 100 UNITS in SODIUM CHLORIDE 0.9% IV 99 ML 10 UNITS IV CONT (15:22)
[2024-12-25] MEDS: KCL 20MEQ/0.9% SOD CHL 1,000 ML 150 ML IV CONT (15:29)
[2024-12-25 15:33] LABS: Glucose Point of Care > 500 mg/dl (65-105)
--- NOTE | 2024-12-25 16:09 | ADMGEN ---
This patient, Nigel Starks, was admitted to Intensive Care Unit-3. Patient/family oriented to hospital policies and general routines including ID bracelet, bed and alarms, visiting hours, pain management, procedures, bathroom and other care routines, personal items, smoking policy, room service/diet, and visiting hours. Information on how to activate the Rapid Response Team has been discussed. Patient/Family are encouraged to report perceived risks to care and to ask questions if they do not understand what they are told or what they should do.
[2024-12-25 16:29] LABS: Glucose Point of Care 438 mg/dl (65-105)
[2024-12-25] MEDS: MAGNESIUM SULF 2 GM/WATER 50ML 2 GM/50 ML BAG IVPB (16:33)
[2024-12-25] MEDS: SODIUM CHLORIDE 0.9% IV 1,000 ML 150 ML IV CONT (17:06)
[2024-12-25 17:07] LABS: Glucose Point of Care 260 mg/dl (65-105)
[2024-12-25 17:09] LABS: Anion Gap 6 mmol/L (4-12); Blood Urea Nitrogen 36 mg/dL (9-20); Calcium 7.5 mg/dL (8.4-10.2); Carbon Dioxide 23 mmol/L (22-30); Chloride 107 mmol/L (98-107); Estimated CRCL calculation 39 ml/min; Estimated Glomerular Filt Rate 38; Glucose 306 mg/dL (65-110); Magnesium 1.2 mg/dL (1.6-2.3); Phosphorus 2.1 mg/dL (2.5-4.5); Sodium 136 mmol/L (137-145)
--- OUTSIDE RECORDS SUMMARY | 2024-12-25 17:32 | XMS_ITS | Continuity of Care Document ---
Author Organization [employer] [place] Address [address] [place] [address] Phone Care Team Providers Care District Court Bailiff Name Role Phone Armando PT,MPT,ATC, Yasir Unavailable [...] Diagnoses Date Provider Providers Copied on Encounter [facility] [address] [place] [address], [id number], tel:[phone] [place] No Information Mar-1 8-202 0 Armando Ching , [place], [place]. Referring Provider: Bib Watson, [facility] [address] [place] [address] [address] [facility], [place], [place], [facility]. tel:[phone] [place] [address] [place] [address], [id number], tel:[phone] [place] No Information Mar-1 6-202 0 Armando Ching , [place], [place]. Referring Provider: Bib Watson, [facility] [address] [place] [address], [place], [facility]. tel:[phone] [place] [address] [place] [address], [id number], tel:[phone] [place] No Information Mar-1 2-202 0 Sommer Childs . Referring Provider: Bib Watson, [facility] [address] [place] [address] Suite [facility], [place], [facility]. tel:[phone] [facility] [address] [place] [address], [id number], tel:[phone] [place] No Information Mar-0 9-202 0 Armando Ching , [place], [place]. Referring Provider: Bib Watson, [facility] [address] [place] [address] [address] [facility], [place], [facility]. tel:[phone] [facility] [address] [place] [address] 300, [place], [place], [id number], tel:[phone] [place] No Information Mar-0 6-202 0 Armando Ching , [place], [place]. Referring Provider: Bib Watson, [facility] [address] [place] [address] 162 [address], [place], [facility]. tel:[phone] [facility] [address], [place], [place], [id number], tel:[phone] [place] No Information 0 Roberts Yasir. , [place], [place]. Referring Provider: Bib Watson, [facility] [address] [place] [address] [address], [place], [facility]. tel:[phone] [facility] [address], [place], [place], [id number], [place] tel:[phone] [place] No Information 0 Roberts Yasir. , [place], [place]. Referring Provider: Bib Watson, [facility] [address] [place] [address] Suite [facility], [place], [facility]. tel:[phone] [place], [place] [address], [place], [place], [id number], [place] tel:[phone] [place] No Information 0 Roberts Yasir. , [place], [place]. Referring Provider: Bib Watson, [facility] [address] [place] [address] [address], [place], [facility]. tel:[phone] [address], [place], [id number], [place] tel:[phone] [place] No Information 0 Roberts Yasir. , [place], [place]. Referring Provider: Bib Watson, [facility] [address] [place] [address] [address], [place], [facility]. tel:[phone] [facility] [address] [place], [place] [address], [place], [place], [id number], [place] tel:[phone] [place] No Information 0 Armando Sandovaln. , [place], [place]. Referring Provider: Bib Watson, [facility] [address] [place] [address] [address], [place], [facility]. tel:[phone], [place], [place], [id number], tel:[phone] [place] No Information 0 [facility]. Referring Provider: Bib Watson, [facility] [address] [place] [address] [address], [place], [facility]. tel:[phone] [address], [place], [place], [id number], tel:[phone] [place] No Information 0 [place], [place], . Referring Provider: Bib Watson, [facility] [address] [place] [address] [address], [place], [facility]. tel:[phone] Family History Family Member Type Diagnosis Age At Onset No Information Payers Payer name Insurance type Covered republican ID Authormekhicatalina barrettroverto(s) [employer] Medicare Replacement 16 [id number] Social History Type Description Quantity Date Captured [...]
--- OUTSIDE RECORDS SUMMARY | 2024-12-25 17:32 | XMS_ITS | Continuity of Care Document ---
Author Organization [employer] [place] Address [address] [place] [address] Phone Care Team Providers Care Torpedo Man Name Role Phone Armando PT,MPT,ATC, Yasir Unavailable [...] Diagnoses Date Provider Providers Copied on Encounter [facility] [address] [place] [address], [id number], tel:[phone] [place] No Information Mar-1 8-202 0 Armando Ching , [place], [place]. Referring Provider: Bib Watson, [facility] [address] [place] [address] [address] [facility], [place], [place], [facility]. tel:[phone] [place] [address] [place] [address], [id number], tel:[phone] [place] No Information Mar-1 6-202 0 Armando Ching , [place], [place]. Referring Provider: Bib Watson, [facility] [address] [place] [address], [place], [place], [facility]. tel:[phone] [place] [address] [place] [address], [id number], tel:[phone] [place] No Information Mar-1 2-202 0 Sommer Childs . Referring Provider: Bib Watson, [facility] [address] [place] [address] Suite [facility], [place], [facility]. tel:[phone] [facility] [address] [place] [address], [id number], tel:[phone] [place] No Information Mar-0 9-202 0 Armando Ching , [place], [place]. Referring Provider: Bib Watson, [facility] [address] [place] [address] [address] [facility], [place], [facility]. tel:[phone] [facility] [address] [place] [address] 300, [place], [place], [id number], tel:[phone] [place] No Information Mar-0 6-202 0 Armando Ching , [place], [place]. Referring Provider: Bib Watson, [facility] [address] [place] [address] [address], [place], [facility]. tel:[phone] [facility] [address], [place], [place], [id number], tel:[phone] [place] No Information 0 Roberts Yasir. , [place], [place]. Referring Provider: Bib Watson, [facility] [address] [place] [address] [address], [place], [facility]. tel:[phone] [facility] [address], [place], [place], [id number], [place] tel:[phone] [place] No Information 0 Roberts Yasir. , [place], [place]. Referring Provider: Bib Watson, [facility] [address] [place] [address] [address] [facility], [place], [facility]. tel:[phone] [place], [place] [address], [place], [place], [id number], [place] tel:[phone] [place] No Information 0 Roberts Yasir. , [place], [place]. Referring Provider: Bib Watson, [facility] [address] [place] [address] [address], [place], [facility]. tel:[phone] [address], [place], [id number], [place] tel:[phone] [place] No Information 0 Roberts Yasir. , [place], [place]. Referring Provider: Bib Watson, [facility] [address] [place] [address] [address], [place], [facility]. tel:[phone] [facility] [address] [place], [place] [address], [place], [place], [id number], [place] tel:[phone] [place] No Information 0 Armando Sandovaln. , [place], [place]. Referring Provider: Bib Watson, [facility] [address] [place] [address] [address], [place], [facility]. tel:[phone], [place], [place], [id number], tel:[phone] [place] No Information 0 [facility]. Referring Provider: Bib Watson, [facility] [address] [place] [address] 162 [address], [place], [facility]. tel:[phone] [address], [place], [place], [id number], tel:[phone] [place] No Information 0 [place], [place], . Referring Provider: Bib Watson, [facility] [address] [place] [address] [address], [place], [facility]. tel:[phone] Family History Family Member Type Diagnosis Age At Onset No Information Payers Payer name Insurance type Covered democrat ID Authormekhicatalina barrettroverto(s) Hum[employer] Medicare Replacement 16 [id number] Social History Type Description Quantity Date Captured [...]
--- OUTSIDE RECORDS SUMMARY | 2024-12-25 17:32 | XMS_ITS | Referral Summary ---
Author Organization [facility] [address] Address [address] [place] [address] Care Team Providers Care Recorder Helper Seismograph Name Role Phone Cb Bennett DO Primary Care Provider [phone] Allergies No known active allergies Medications albuterol [...] (09/08/2020): Added automatically from request for surgery [id number] Arthritis of carpometacarpal (CMC) joint of righ t thumb 09/08/2020 Overview (09/08/2020): Added automatically from request for surgery [id number] Hand joint laxity, right 09/08/2020 Overview (09/08/2020): Added automatically from request for surgery [id number] Social History Tobacco Use Types Packs/Day Years Used Date Smoking Tobacco: Former Cigarettes 2 50 1 951 - 2000 Smokeless Tobacco: Never Alcohol Use Standard Drinks/Week Comments Not Currently 0 (1 standard drink = 0.6 oz pure alcohol) last use 1996, past excessive use Sex and Gender Information Value Date Recorded Sex Assigned at Not on file Legal Sex Male 1:49 AM LADLE PULLER Gender Identity Male 08/29/2020 7:16 AM LADLE PULLER Sexual Orientation Straight 08/29/2020 7: 16 AM LADLE PULLER Last Filed Vital Signs Vital Sign Reading Time Taken Comments Blood Pressure 131/67 09/14/2020 2:30 PM LADLE PULLER Pulse 72 09/14/2020 2:30 PM LADLE PULLER Temperature 36 C (96.8 F) 09/14/2020 2:03 PM LADLE PULLER Respiratory Rate 20 09/14/2020 2:30 PM LADLE PULLER Oxygen Saturation 91% 09/14/2020 2:30 PM LADLE PULLER Inhaled Oxygen Concentration - - Weight 108.9 kg (240 lb) 09/11/2020 10:05 AM LADLE PULLER Height 182.9 cm (6') 09/11/2020 10:05 AM LADLE PULLER Body Mass Index 32.55 09/11/2020 10:05 AM LADLE PULLER Plan of Treatment Not on file Medical Devices Implanted Type Area Inspector Eyeglass Device Identifier Shelf Expiration Date Model / Serial / Lot Depuy Mitek [id number] Quickanchor Plus Orthocord 2-0 V-5 Mini [place] Suture - [id number] Implanted:Qty: 1 on 09/14/2020 by Debbie Rivera MD PhD at [facility] Right: Wrist Depuy Mitek 01/29/2023 [id number] / / [id number] Insurance [employer] MEDICARE O [employer] MEDICARE O [facility] MEDICARE HMO Care Teams Recorder Helper Seismograph Relationship Specialty Start Date End Date Cb Bennett DO PCP - General Internal Medicine 09/22/18
--- OUTSIDE RECORDS SUMMARY | 2024-12-25 17:32 | XMS_ITS | Clinical Summary ---
Author Organization [facility] Address [address] [place] [address] Phone Care Team Providers Care Art Department Head Name Role Phone TammyCb hendricks Primary Care Provider [phone] Allergies No known active allergies Medications ADVAIR [...] 1 TABLET AT BEDTIME 9 Active Saw Butler 450 MG capsule Take 450 mg by [...] (01/10/2021): Added automatically from request for surgery [id number] Added automatically from request for surgery [id number] Carpal tunnel syndrome of right wrist 09/08/2020 Overview (01/10/2021): Added automatically from request for surgery [id number] Added automatically from request for surgery [id number] Hand joint laxity 09/08/2020 Overview (01/10/2021): Added automatically from request for surgery [id number] Added automatically from request for surgery [id number] 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 [...] 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 Not on file Not on file Last Filed Vital Signs Vital Sign Reading Time Taken Comments Blood Pressure 136/84 07/10/2022 3:49 PM GAS TRANSFER OPERATOR Pulse - - Temperature 36.7 C (98.1 F) 07/10/2022 3:49 PM GAS TRANSFER OPERATOR Respiratory Rate 18 07/10/2022 3:49 PM GAS TRANSFER OPERATOR Oxygen Saturation - - Inhaled Oxygen Concentration - - Weight 108 kg (237 lb 6.4 oz) 07/10/2022 3:49 PM GAS TRANSFER OPERATOR Height 185.4 cm (6' 1 ) 07/10/2022 3:49 PM GAS TRANSFER OPERATOR Body Mass Index 31.32 07/10/2022 3:49 PM GAS TRANSFER OPERATOR Plan of Treatment Health Maintenance Due Date Last Done Comments Pneumococcal PPSV23/PCV13 65 + Years / Low and Medium Risk (1 of 4 - PCV) 1995 Influenza Vaccine (Season Ended) 2025 06/23/20 14, 08/04/2012 Insurance [employer] MEDICARE ADVANTAGE Care Teams Art Department Head Relationship Specialty Start Date End Date Cb Bennett DO [address] [place] [id number] PCP - General Internal Medicine 01/26/19
--- OUTSIDE RECORDS SUMMARY | 2024-12-25 17:32 | XMS_ITS | Clinical Summary ---
Author Organization [facility] [address] Address [address] [place] [address] Care Team Providers Care Underwear Cutter Name Role Phone Cb Bennett DO Primary Care Provider [phone] Allergies No known active allergies Medications albuterol [...] (09/08/2020): Added automatically from request for surgery [id number] Arthritis of carpometacarpal (CMC) joint of righ t thumb 09/08/2020 Overview (09/08/2020): Added automatically from request for surgery [id number] Hand joint laxity, right 09/08/2020 Overview (09/08/2020): Added automatically from request for surgery [id number] Surgical History Surgery Date Site/Laterality Comments TOTAL [...] on file Legal Sex Male 1:49 AM VEGETABLE TRIMMER Gender Identity Male 08/29/2020 7:16 AM VEGETABLE TRIMMER Sexual Orientation Straight 08/29/2020 7: 16 AM VEGETABLE TRIMMER Obstetrics History Last Filed Vital Signs Vital Sign Reading Time Taken Comments Blood Pressure 131/67 09/14/2020 2:30 PM VEGETABLE TRIMMER Pulse 72 09/14/2020 2:30 PM VEGETABLE TRIMMER Temperature 36 C (96.8 F) 09/14/2020 2:03 PM VEGETABLE TRIMMER Respiratory Rate 20 09/14/2020 2:30 PM VEGETABLE TRIMMER Oxygen Saturation 91% 09/14/2020 2:30 PM VEGETABLE TRIMMER Inhaled Oxygen Concentration - - Weight 108.9 kg (240 lb) 09/11/2020 10:05 AM VEGETABLE TRIMMER Height 182.9 cm (6') 09/11/2020 10:05 AM VEGETABLE TRIMMER Body Mass Index 32.55 09/11/2020 10:05 AM VEGETABLE TRIMMER Plan of Treatment Health Maintenance Due Date [...] 12/24/2028 12/24/2018 Medical Devices Implanted Type Area Line Assembler Device Identifier Shelf Expiration Date Model / Serial / Lot Depuy Mitek [id number] Quickanchor Plus Orthocord 2-0 V-5 Mini [place] Suture - [id number] Implanted:Qty: 1 on 09/14/2020 by Debbie Rivera MD PhD at [facility] Right: Wrist Depuy Mitek 01/29/2023 [id number] / / [id number] [place] [address] HUMANA CHOICE MEDICARE PPO [employer] MEDICARE HMO [employer] MEDICARE HMO Care Teams Underwear Cutter Relationship Specialty Start Date End Date Cb Bennett DO PCP - General Internal Medicine 09/22/18
[2024-12-25 17:57] LABS: MRSA (PCR) NOT DETECTED (NOT DETECTE)
[2024-12-25 18:01] LABS: Glucose Point of Care 137 mg/dl (65-105)
[2024-12-25] MEDS: DEXTROSE 5%/0.45% SOD CHL 1,000 ML 150 ML IV CONT (18:01)
[2024-12-25 19:00] LABS: Glucose Point of Care 96 mg/dl (65-105)
--- NOTE | 2024-12-25 20:20 | PC.NURSE ---
Lab called with critical glucose 552 and potassium 2.7. Fingerstick JUST TAKEN was 117 and last potassium was 6 with no treatment. Lab informed that labs need to be redrawn.
[2024-12-25 20:28] LABS: Glucose Point of Care 117 mg/dl (65-105)
[2024-12-25] MEDS: TAMSULOSIN HCL 0.4 MG CAPSULE BY MOUTH (20:46)
[2024-12-25 21:13] LABS: Anion Gap 10 mmol/L (4-12); Blood Urea Nitrogen 39 mg/dL (9-20); Calcium 9.2 mg/dL (8.4-10.2); Carbon Dioxide 29 mmol/L (22-30); Chloride 98 mmol/L (98-107); Estimated CRCL calculation 34 ml/min; Estimated Glomerular Filt Rate 33; Glucose 118 mg/dL (65-110); Sodium 137 mmol/L (137-145)
[2024-12-25 21:32] LABS: Glucose Point of Care 142 mg/dl (65-105)
[2024-12-25] MEDS: INSULIN GLARGINE (*BKC) 100 UNITS/ML 21 UNITS SUB-Q (21:45)
[2024-12-25] MEDS: LACTATED RINGERS 1,000 ML 100 ML IV CONT (21:52)
[2024-12-25] MEDS: FLUTICASONE/SALMETEROL 115-21 MCG INHALER 1 PUFF 2 PUFF INHALATION (22:08)
[2024-12-25] MEDS: POTASSIUM PHOS,M-BASIC-D-BASIC 20 MMOL in SODIUM CHLORIDE 0.9% IV 250 ML 64.17 MMOL IVPB (22:19)
[2024-12-25 22:22] LABS: Glucose Point of Care 136 mg/dl (65-105)
[2024-12-26] VITALS (17 sets, daily range): BP systolic 88–169; BP diastolic 45–98; PULSE 58–86; RESP 12–22; TEMP 36.4–36.7; O2SAT 90–95
[2024-12-26 00:14] LABS: Glucose Point of Care 240 mg/dl (65-105)
[2024-12-26 04:08] LABS: Hemoglobin 12.3 g/dL (14.0-18.0); Mean Corpuscular HGB Conc 34.2 g/dl (32-36); Mean Corpuscular Hemoglobin 29.9 pg (26-34); Mean Corpuscular Volume 87.4 fl (80-100); Platelet Count Result 157 k/mm3 (150-375); Red Blood Count 4.12 M/mm3 (4.6-6.20); Red Cell Distribution Width 13.3 % (11.5-14.5); White Blood Count 6.8 K/mm3 (4.5-10.0)
[2024-12-26 04:19] LABS: Anion Gap 7 mmol/L (4-12); Blood Urea Nitrogen 37 mg/dL (9-20); Calcium 8.5 mg/dL (8.4-10.2); Carbon Dioxide 27 mmol/L (22-30); Chloride 101 mmol/L (98-107); Estimated CRCL calculation 37 ml/min; Estimated Glomerular Filt Rate 36; Glucose 250 mg/dL (65-110); Magnesium 1.8 mg/dL (1.6-2.3); Phosphorus 4.5 mg/dL (2.5-4.5); Potassium 3.3 mmol/L (3.4-5.0); Sodium 135 mmol/L (137-145)
[2024-12-26 07:39] LABS: Glucose Point of Care 236 mg/dl (65-105)
[2024-12-26] MEDS: LACTATED RINGERS 1,000 ML 100 ML IV CONT (07:48)
[2024-12-26] MEDS: metFORMIN HCL 500 MG TABLET PO ×2 (07:48→16:23)
[2024-12-26] MEDS: POTASSIUM BICARBONATE 25 MEQ TABEF 50 MEQ PO (07:48)
[2024-12-26] MEDS: INSULIN ASPART (*BKC) 100 UNITS/ML SUB-Q ×7 (07:49→20:25)
[2024-12-26 08:14] LABS: Creatine Kinase 117 U/L (55-170)
[2024-12-26] MEDS: SIMVASTATIN 20 MG TABLET PO (08:27)
[2024-12-26] MEDS: ENOXAPARIN 40 MG/0.4 ML SYRINGE SUB-Q (08:27)
[2024-12-26] MEDS: amLODIPine BESYLATE 5 MG TABLET 10 MG BY MOUTH (08:28)
[2024-12-26] MEDS: allopurinoL 100 MG TABLET PO (08:28)
[2024-12-26] MEDS: FLUTICASONE/SALMETEROL 115-21 MCG INHALER 1 PUFF 2 PUFF INHALATION (08:30)
--- NOTE | 2024-12-26 08:45 | P.CONIN_ITS ---
Assessment and Plan Assessment and plan (1) Severe hyperglycemia due to diabetes mellitus: Code(s): E11.65 - Type 2 diabetes mellitus with hyperglycemia Status: Acute Assessment and Plan: Patient has history of prediabetes but not does not on any treatment. He presented with severe hyper glycemia of 13.4 He had mildly abnormal beta hydroxybutyrate but normal anion gap He was started on insulin infusion and IV fluids Blood glucose levels have improved and patient was transition to subcutaneous insulin overnight I will continue Lantus and change to 25 units at bedtime I will add 5 units of subcu insulin with meals. Continue sliding scale Add metformin Consult dietitian and knowledge management advisor Continue IV fluids but decrease rate for another 24 hours Consistent carbohydrate diet (2) Hypertension: Qualifiers: Hypertension type: essential hypertension Qualified Code(s): I10 - Essential (primary) hypertension Code(s): I10 - Essential (primary) hypertension Status: Acute Assessment and Plan: Continue Norvasc. HCTZ and lisinopril is on hold due to ANAY and hypovolemia (3) Acute on chronic kidney failure: Code(s): N17.9 - Acute kidney failure, unspecified; N18.9 - Chronic kidney disease, unspecified Status: Acute Assessment and Plan: Patient has history of chronic kidney disease likely secondary to diabetes and hypertension. He presented with elevated creatinine at 2.39 This is likely secondary to hypovolemia and dehydration from poorly controlled diabetes Creatinine is improving now with IV fluids Normal CK Check urine electrolytes Check renal ultrasound Monitor urine output electrolytes and creatinine (4) COPD (chronic obstructive pulmonary disease): Qualifiers: COPD type: unspecified COPD Qualified Code(s): J44.9 - Chronic obstructive pulmonary disease, unspecified Code(s): J44.9 - Chronic obstructive pulmonary disease, unspecified Status: Acute Assessment and Plan: Underlying COPD but not in exacerbation Supplemental oxygen Bronchodilator (5) Electrolyte abnormality: Code(s): E87.8 - Other disorders of electrolyte and fluid balance, not elsewhere classified Status: Acute Assessment and Plan: Replace low potassium Plan DVT prophylaxis -Lovenox Nutrition -diabetic diet Code Status - Full Code Incentive spirometry, up in chair Transfer out of ICU today [employer] Processing Operator Consult Note Consult date: 12/26/24 Reason for consult: Hyperglycemia HPI: Nigel Starks is a 79 year old male with past medical history of prediabetes, hypertension, dyslipidemia, chronic kidney disease, BPH who presented to ER yesterday with chief complaint of high blood sugar. He states that he has been diagnosed with pre diabetes 2-3 years ago and has not been on any treatment. He states he gets his labs checked every 6 months. His last HbA1c was 7. Over last 10 days patient has been feeling sick with increased urination and thirst. He also had episodes where he felt dizzy and lightheaded. He also had blurred vision. He checked his sugar with his 's glucometer and read high and then when checked as an outpatient blood glucose was confirmed to be very high hence he presented to the ER. Patient denies fever, chest pain, shortness of breath, cough, nausea vomiting, abdominal pain,, diarrhea, headache or constipation. All other systems were reviewed and were negative Workup in the ER showed Vital signs were stable on arrival. Labs were significant for a sodium of 128, chloride 90, carbon dioxide 25, anion gap 13, BUN 45, creatinine 2.39, glucose 756, magnesium 1.5, beta hydroxybutyrate 1.24, hemoglobin A1c 13.4%. Urinalysis was positive for 1+ protein, 3+ glucose, and trace ketones. VBG showed a pH of 7.395, pCO2 39.6, HC03 23.7. He was given 2 L crystalloid bolus and was started on insulin drip with IV fluids and admitted to ICU for further evaluation management. Overnight patient's blood glucose improved and he was transitioned to subcutaneous insulin. This morning he states he feeling much better and denies any physical complaints. He states his symptoms have completely resolved. He did eat his dinner last night. Review of Systems 2 Review of Systems: All systems reviewed & are unremarkable except as noted in HPI and below (HPI) [facility] [place] Past Medical History Medical History Benign prostatic hyperplasia Type 2 diabetes mellitus Vitamin D deficiency Chronic kidney disease, stage 3 Chronic obstructive pulmonary disease Chronic back pain Peptic ulcer Proteinuria Gout Benign colon polyp Hyperlipidemia Hypertension Obesity Asthma Solitary pulmonary nodule Osteoarthritis Mumps Measles Surgical History Surgical History History of thumb surgery what sounds like right carpometacarpal arthroplasty History of colonoscopy with polypectomy History of right knee joint replacement (2018) Status post excision of lipoma right shoulder History of left knee replacement (2010) Family History Family History Mother Hypertension Carcinoma of colon Brain bleed Father Family history of coronary artery disease Hypertension Gastric artery aneurysm Sibling Family history of coronary artery disease Hypertension Acute myocardial infarction Renal failure Diabetes mellitus Other Family history of arthritis Family history of cardiovascular disease Family history of kidney disease Social History Social History Social History: Surrogate medical decision maker: Kiya Starks, spouse. Code status: Full code. Smoking packs per day: 3 Smoking cigarettes per day: 60.0 Years smoked: 52 Smoking pack-years: 156.00 Smoking status: Former smoker Second hand tobacco smoke exposure: Yes Alcohol intake: former Alcohol use details: No alcohol since 1996. Substance use: never Substance use type: does not use Do You Feel Safe in your Home?: Yes Lack of Transportation: No Lack of Food: Never True Current Housing: I Have Housing Concerned About Future Housing: No Difficulty Paying Gas/Electric Bills: No Difficulty Paying for Meds: No Currently Unemployed: No Education: Bachelor's Degree Difficulty w/ Childcare or Family Care: No Additional living arrangements comments: Lives with in [place]. They have 1 daughter. 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 Spiritual care concerns: No Meds Home Medications and Allergies Home Medications ?Medication ?Instructions ?Recorded ?Confirmed ?Type amlodipine 10 mg tablet See Rx Instructions .Route 05/04/24 12/25/24 Rx .COMPLEX #90 tabs lisinopril 40 mg tablet 40 mg PO DAILY #90 tabs 07/19/24 12/25/24 Rx simvastatin 20 mg tablet 20 mg PO DAILY #90 tabs 07/19/24 12/25/24 Rx tamsulosin 0.4 mg capsule See Rx Instructions .Route 08/16/24 12/25/24 Rx .COMPLEX #90 caps hydrochlorothiazide 25 mg tablet 25 mg PO DAILY #90 tabs 09/27/24 12/25/24 Rx allopurinol 100 mg tablet 100 mg PO DAILY #90 tabs 10/04/24 12/25/24 Rx fluticasone 250 mcg-salmeterol 50 See Rx Instructions .Route 11/08/24 12/25/24 Rx mcg/dose blistr powdr for .COMPLEX #180 blisters inhalation Allergies Allergy/AdvReac Type Severity Reaction Status Date / Time Chlorine Allergy Intermediate SWELLING, Uncoded 12/25/24 13:29 SOB Vital Signs Vital Signs - 24 hr 12/25/24 13:37 12/25/24 13:42 12/25/24 14:01 Temperature 36.6 C Pulse Rate 84 84 80 Respiratory Rate 22 H 16 17 Blood Pressure 135/62 135/62 118/72 Pulse Oximetry 93 98 95 Oxygen Delivery Room Air Oxygen Flow Rate Fraction of Inspired Oxygen 12/25/24 15:01 12/25/24 15:30 12/25/24 16:02 Temperature Pulse Rate 72 73 86 Respiratory Rate 19 19 15 Blood Pressure 122/56 L Pulse Oximetry 96 95 97 Oxygen Delivery Oxygen Flow Rate Fraction of Inspired Oxygen 12/25/24 16:04 12/25/24 16:09 12/25/24 16:15 Temperature 36.4 C L Pulse Rate 83 72 75 Respiratory Rate 13 15 17 Blood Pressure 158/84 H 158/84 H Pulse Oximetry 97 97 94 Oxygen Delivery Oxygen Flow Rate Fraction of Inspired Oxygen 12/25/24 16:16 12/25/24 16:30 12/25/24 16:31 Temperature Pulse Rate 73 71 78 Respiratory Rate 14 23 H 17 Blood Pressure 158/87 H Pulse Oximetry 94 95 95 Oxygen Delivery Oxygen Flow Rate Fraction of Inspired Oxygen 12/25/24 16:45 12/25/24 16:48 12/25/24 17:15 Temperature Pulse Rate 93 68 Respiratory Rate 18 14 Blood Pressure 132/63 Pulse Oximetry 96 97 94 Oxygen Delivery Room Air Oxygen Flow Rate Fraction of Inspired Oxygen 12/25/24 18:00 12/25/24 18:00 12/25/24 20:00 Temperature Pulse Rate 68 68 70 Respiratory Rate 15 Blood Pressure 115/69 Pulse Oximetry 92 Oxygen Delivery Oxygen Flow Rate Fraction of Inspired Oxygen 12/25/24 20:10 12/25/24 22:00 12/25/24 22:00 Temperature Pulse Rate 70 72 72 Respiratory Rate 21 H 19 Blood Pressure 135/64 151/69 H Pulse Oximetry 92 93 Oxygen Delivery Oxygen Flow Rate Fraction of Inspired Oxygen 12/25/24 22:13 12/26/24 00:00 12/26/24 00:00 Temperature 36.7 C Pulse Rate 72 85 76 Respiratory Rate 12 Blood Pressure 124/58 L Pulse Oximetry 94 92 Oxygen Delivery Room Air Oxygen Flow Rate Fraction of Inspired Oxygen 21 12/26/24 02:17 12/26/24 02:17 12/26/24 02:45 Temperature Pulse Rate 70 70 Respiratory Rate 17 Blood Pressure 122/61 Pulse Oximetry 90 92 Oxygen Delivery Nasal Cannula Oxygen Flow Rate 2 Fraction of Inspired Oxygen 12/26/24 04:00 12/26/24 04:00 12/26/24 04:00 Temperature 36.6 C Pulse Rate 71 79 71 Respiratory Rate 17 17 Blood Pressure 169/82 H Pulse Oximetry 94 94 Oxygen Delivery Nasal Cannula Oxygen Flow Rate 2 Fraction of Inspired Oxygen 12/26/24 06:00 12/26/24 06:00 12/26/24 06:30 Temperature Pulse Rate 58 L 58 L Respiratory Rate 18 Blood Pressure 88/48 L 98/45 L Pulse Oximetry 94 Oxygen Delivery Oxygen Flow Rate Fraction of Inspired Oxygen 12/26/24 07:45 12/26/24 08:30 12/26/24 08:31 Temperature 36.4 C L Pulse Rate 71 75 76 Respiratory Rate 18 22 H 20 Blood Pressure 98/45 L 125/98 H Pulse Oximetry 95 90 91 Oxygen Delivery Room Air Oxygen Flow Rate Fraction of Inspired Oxygen 12/26/24 08:31 Temperature Pulse Rate 76 Respiratory Rate 20 Blood Pressure Pulse Oximetry Oxygen Delivery Oxygen Flow Rate Fraction of Inspired Oxygen Exam 2 Narrative: General: Pt is alert awake and in NAD Lungs/Chest: Trachea central Clear BS B/L, No crackles or wheezing. Cardiac: RRR. Normal S1 S2. No murmurs Circulation: Pedal pulses are intact and symmetrical. Abdomen: Normal bowel sounds.. Soft. NT. ND. Extremities: No clubbing, cyanosis or edema. Warm : Reyes in place Neurologic: Follows commands. Moves all 4 extremities PERRL Skin: No Rash Results Labs 12/26/24 03:55 12/26/24 03:55 Labs: Short CBC 12/25/24 12/26/24 Range/Units 13:51 03:55 WBC 7.7 6.8 (4.5-10.0) K/mm3 Hgb 13.5 L 12.3 L (14.0-18.0) g/dL Hct 40.6 L 36.0 L (42.0-52.0) % Plt Count 180 157 (150-375) k/mm3 [facility] 12/25/24 12/25/24 12/25/24 13:51 16:36 20:50 Sodium 128 L 136 L 137 Potassium 4.3 6.0 H* 3.0 L Chloride 90 L 107 98 Carbon Dioxide 25 23 29 BUN 45 H D 36 H 39 H Creatinine 2.39 H 1.76 H 1.98 H Glucose 756 H* 306 H 118 H Calcium 9.1 7.5 L 9.2 12/26/24 03:55 Sodium 135 L Potassium 3.3 L Chloride 101 Carbon Dioxide 27 BUN 37 H Creatinine 1.84 H Glucose 250 H Calcium 8.5 Cardiac Enzymes 12/26/24 Range/Units 03:55 Total Creatine Kinase 117 (55-170) U/L Liver Function 12/25/24 Range/Units 13:51 Total Bilirubin 1.3 (0.2-1.3) mg/dL AST 23 (17-59) U/L ALT 19 (6-50) U/L Alkaline Phosphatase 99 (38-126) U/L Albumin 4.2 (3.5-5.1) g/dL Urine 12/25/24 Range/Units 14:10 Urine Color Yellow (Yellow) Urine Appearance Cloudy H (Clear) Urine pH 5.0 (5.0-9.0) Ur Specific [place] 1.027 (1.001-1.035) Urine Protein 1+ H (Negative) mg/dL Urine Glucose (UA) 3+ H (Negative) mg/dL Quality VTE Prophylaxis VTE prophylaxis: pharmacologic ordered Hospitalist MIPS Advance Care Plan I have confirmed that the patient's Advanced Care Plan is present, code status is documented, or surrogate decision maker is listed in patient medical record.: Yes Medication Reconciliation I have utilized all available resources to obtain, update and review the patients current medications (includes all prescriptions, OTC, herbals, cannabis, and nutritional supplements).: Yes
--- NOTE | 2024-12-26 10:23 | PM.CNNEP ---
Assessment and Plan Assessment and plan (1) Acute on chronic kidney failure: Code(s): N17.9 - Acute kidney failure, unspecified; N18.9 - Chronic kidney disease, unspecified Status: Acute Assessment and Plan: The patient has chronic kidney disease. His creatinine tends to range between 1.[address] Montgomery has been following him in the office and evaluated his chronic kidney disease. Apparently is felt to be due to hypertension and vascular disease and possibly prior use of nonsteroidal anti-inflammatory agents. His last visit was in October and things were stable. The patient had acute kidney injury. His creatinine was above 2 when he got to the hospital. This is most likely related to the presence of ketones in the serum and or dehydration because of the glucosuria. With improvement in volume status and also with treatment with insulin his creatinine has come down to baseline. Will follow his creatinine along during the hospitalization. (2) Electrolyte abnormality: Code(s): E87.8 - Other disorders of electrolyte and fluid balance, not elsewhere classified Status: Acute Assessment and Plan: His sodium is a little bit on the low side. This was due to the high blood sugars Causing a falsely low sodium. He also could have a component of hyponatremia from the dehydration as well but I think this is minor. His sodium levels 135 today But once again his blood sugar was high at 250. Correction for the blood sugar would bring in his sodium up to 137. Will keep an eye on this. Potassium was High early on, likely due to dehydration and acidosis. Now it is low. He is getting supplements for this. phosphorus was low as well. This has been supplemented and is back up to normal (3) Diabetic ketoacidosis associated with type 2 diabetes mellitus: Code(s): E11.10 - Type 2 diabetes mellitus with ketoacidosis without coma Status: Acute Assessment and Plan: diabetes is a new diagnosis for this patient. (4) Chronic obstructive pulmonary disease: Code(s): J44.9 - Chronic obstructive pulmonary disease, unspecified Status: Acute Assessment and Plan: He stopped smoking 20 years ago (5) Secondary renal hyperparathyroidism: Code(s): N25.81 - Secondary hyperparathyroidism of renal origin Status: Acute Assessment and Plan: will follow the phosphorus (6) Proteinuria: Qualifiers: Proteinuria type: other Qualified Code(s): R80.8 - Other proteinuria Code(s): R80.9 - Proteinuria, unspecified Status: Acute Assessment and Plan: due to hypertension and nonsteroidals (7) Benign hypertension with chronic kidney disease: Code(s): I12.9 - Hypertensive chronic kidney disease with stage 1 through stage 4 chronic kidney disease, or unspecified chronic kidney disease Status: Acute Assessment and Plan: blood pressure is under good control. (8) Hyperlipidemia: Qualifiers: Hyperlipidemia type: unspecified Qualified Code(s): E78.5 - Hyperlipidemia, unspecified Code(s): E78.5 - Hyperlipidemia, unspecified Status: Acute Assessment and Plan: the patient is on simvastatin History of Present Illness Reason for Consult Consult date: 12/26/24 Chief Complaint Chief complaint: Severe hyperglycemia with ketosis History of Present Illness Narrative: Nigel is a very pleasant 79-year-old gentleman who has multiple medical problems including chronic kidney disease under the care of Dr. Ramirez on go in the office for the last 5 years, proteinuria, COPD, gout, hypertension, hyperlipidemia, BPH, vitamin-D deficiency, solitary pulmonary nodule, and osteoarthritis. 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 Because of the loss of this job he was unable to afford his housing and so they are getting their house ready to sell. He has been under quite a bit of stress with this process and has not been eating well. He also became depressed because of the loss of his job and was eating poorly. He was gradually feeling worse and worse. He has a friend who has diabetes and his friend told him that when he felt this way his sugars were high so he checked his blood sugar with his 's meter and it registered high. He went to urgent care and was high there is well so he came to the ER and it was 756. He was admitted to the ICU for an insulin drip. He feels a little bit better today. Labs showed his creatinine was elevated so renal consultation was requested. He has not had any kidneys issues lately. No bloody urine, foamy urine, kidney stones, or bladder infections. No pain with urination. No nonsteroidal anti-inflammatory agents. Review of Systems Constitutional: Constitutional: Reports no additional constitutional complaints Eyes: Eyes: Reports no additional eye complaints ENT: Reports system reviewed and no additional complaints, except as documented Cardiovascular: Cardiovascular: Reports no additional cardiovascular complaints Respiratory: Respiratory: Reports no additional respiratory complaints Gastrointestinal: Gastrointestinal: Reports no additional gastrointestinal complaints Genitourinary: Genitourinary: Reports no additional male genitourinary complaints Musculoskeletal: Musculoskeletal: Reports no additional musculoskeletal complaints Integumentary/Breasts: Skin/Breast: Reports system reviewed and no additional complaints, except as docu Neurologic: Reports system reviewed and no additional complaints, except as documented Psychiatric: Psychiatric: Reports no additional psychiatric complaints Endocrine: Endocrine: Reports no additional endocrine complaints [facility] Past Medical History Medical History Benign prostatic hyperplasia Chronic kidney disease, stage 3 Chronic obstructive pulmonary disease Type 2 diabetes mellitus Vitamin D deficiency Chronic back pain Peptic ulcer Proteinuria Gout Benign colon polyp Hyperlipidemia Hypertension Obesity Asthma Solitary pulmonary nodule Osteoarthritis Mumps Measles Surgical History Surgical History History of thumb surgery what sounds like right carpometacarpal arthroplasty History of colonoscopy with polypectomy History of right knee joint replacement (2018) Status post excision of lipoma right shoulder History of left knee replacement (2010) Family History Family History Mother Hypertension Carcinoma of colon Brain bleed Father Family history of coronary artery disease Hypertension Gastric artery aneurysm Sibling Family history of coronary artery disease Hypertension Acute myocardial infarction Renal failure Diabetes mellitus Other Family history of arthritis Family history of cardiovascular disease Family history of kidney disease Social History Social History Social History: Surrogate medical decision maker: Kiya Raudel, spouse. Code status: Full code. Smoking packs per day: 3 Smoking cigarettes per day: 60.0 Years smoked: 52 Smoking pack-years: 156.00 Smoking status: Former smoker Second hand tobacco smoke exposure: Yes Alcohol intake: former Alcohol use details: No alcohol since 1996. Substance use: never Substance use type: does not use Do You Feel Safe in your Home?: Yes Lack of Transportation: No Lack of Food: Never True Current Housing: I Have Housing Concerned About Future Housing: No Difficulty Paying Gas/Electric Bills: No Difficulty Paying for Meds: No Currently Unemployed: No Education: Bachelor's Degree Difficulty w/ Childcare or Family Care: No Additional living arrangements comments: Lives with in [place]. They have 1 daughter. 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 Spiritual care concerns: No Meds Home Medications and Allergies Home Medications ?Medication ?Instructions ?Recorded ?Confirmed ?Type amlodipine 10 mg tablet See Rx Instructions .Route 05/04/24 12/25/24 Rx .COMPLEX #90 tabs lisinopril 40 mg tablet 40 mg PO DAILY #90 tabs 07/19/24 12/25/24 Rx simvastatin 20 mg tablet 20 mg PO DAILY #90 tabs 07/19/24 12/25/24 Rx tamsulosin 0.4 mg capsule See Rx Instructions .Route 08/16/24 12/25/24 Rx .COMPLEX #90 caps hydrochlorothiazide 25 mg tablet 25 mg PO DAILY #90 tabs 09/27/24 12/25/24 Rx allopurinol 100 mg tablet 100 mg PO DAILY #90 tabs 10/04/24 12/25/24 Rx fluticasone 250 mcg-salmeterol 50 See Rx Instructions .Route 11/08/24 12/25/24 Rx mcg/dose blistr powdr for .COMPLEX #180 blisters inhalation Allergies Allergy/AdvReac Type Severity Reaction Status Date / Time Chlorine Allergy Intermediate SWELLING, Uncoded 12/25/24 13:29 SOB Vital Signs Vital Signs - 24 hr 12/25/24 13:37 12/25/24 13:42 12/25/24 14:01 Temperature 97.9 F Pulse Rate 84 84 80 Respiratory Rate 22 H 16 17 Blood Pressure 135/62 135/62 118/72 Pulse Oximetry 93 98 95 Oxygen Delivery Room Air Oxygen Flow Rate Fraction of Inspired Oxygen 12/25/24 15:01 12/25/24 15:30 12/25/24 16:02 Temperature Pulse Rate 72 73 86 Respiratory Rate 19 19 15 Blood Pressure 122/56 L Pulse Oximetry 96 95 97 Oxygen Delivery Oxygen Flow Rate Fraction of Inspired Oxygen 12/25/24 16:04 12/25/24 16:09 12/25/24 16:15 Temperature 97.5 F L Pulse Rate 83 72 75 Respiratory Rate 13 15 17 Blood Pressure 158/84 H 158/84 H Pulse Oximetry 97 97 94 Oxygen Delivery Oxygen Flow Rate Fraction of Inspired Oxygen 12/25/24 16:16 12/25/24 16:30 12/25/24 16:31 Temperature Pulse Rate 73 71 78 Respiratory Rate 14 23 H 17 Blood Pressure 158/87 H Pulse Oximetry 94 95 95 Oxygen Delivery Oxygen Flow Rate Fraction of Inspired Oxygen 12/25/24 16:45 12/25/24 16:48 12/25/24 17:15 Temperature Pulse Rate 93 68 Respiratory Rate 18 14 Blood Pressure 132/63 Pulse Oximetry 96 97 94 Oxygen Delivery Room Air Oxygen Flow Rate Fraction of Inspired Oxygen 12/25/24 18:00 12/25/24 18:00 12/25/24 20:00 Temperature Pulse Rate 68 68 70 Respiratory Rate 15 Blood Pressure 115/69 Pulse Oximetry 92 Oxygen Delivery Oxygen Flow Rate Fraction of Inspired Oxygen 12/25/24 20:10 12/25/24 22:00 12/25/24 22:00 Temperature Pulse Rate 70 72 72 Respiratory Rate 21 H 19 Blood Pressure 135/64 151/69 H Pulse Oximetry 92 93 Oxygen Delivery Oxygen Flow Rate Fraction of Inspired Oxygen 12/25/24 22:13 12/26/24 00:00 12/26/24 00:00 Temperature 98.0 F Pulse Rate 72 85 76 Respiratory Rate 12 Blood Pressure 124/58 L Pulse Oximetry 94 92 Oxygen Delivery Room Air Oxygen Flow Rate Fraction of Inspired Oxygen 21 12/26/24 02:17 12/26/24 02:17 12/26/24 02:45 Temperature Pulse Rate 70 70 Respiratory Rate 17 Blood Pressure 122/61 Pulse Oximetry 90 92 Oxygen Delivery Nasal Cannula Oxygen Flow Rate 2 Fraction of Inspired Oxygen 12/26/24 04:00 12/26/24 04:00 12/26/24 04:00 Temperature 97.9 F Pulse Rate 71 79 71 Respiratory Rate 17 17 Blood Pressure 169/82 H Pulse Oximetry 94 94 Oxygen Delivery Nasal Cannula Oxygen Flow Rate 2 Fraction of Inspired Oxygen 12/26/24 06:00 12/26/24 06:00 12/26/24 06:30 Temperature Pulse Rate 58 L 58 L Respiratory Rate 18 Blood Pressure 88/48 L 98/45 L Pulse Oximetry 94 Oxygen Delivery Oxygen Flow Rate Fraction of Inspired Oxygen 12/26/24 07:45 12/26/24 08:00 12/26/24 08:30 Temperature 97.5 F L Pulse Rate 71 75 Respiratory Rate 18 22 H Blood Pressure 98/45 L 125/98 H Pulse Oximetry 95 93 90 Oxygen Delivery Room Air Oxygen Flow Rate Fraction of Inspired Oxygen 12/26/24 08:31 12/26/24 08:31 Temperature Pulse Rate 76 76 Respiratory Rate 20 20 Blood Pressure Pulse Oximetry 91 Oxygen Delivery Room Air Oxygen Flow Rate Fraction of Inspired Oxygen Exam Narrative: Exam Narrative: Well developed well-nourished male in no acute distress Skin is warm and dry without rash Head normocephalic atraumatic Eyes normal sclerae and conjunctivae Mouth normal lips teeth and gums Neck no nodes no thyromegaly no carotid bruits Axillae no nodes Back no CVA tenderness Lungs symmetric and clear to auscultation and percussion Heart regular rate and rhythm without rub or gallop Abdomen bowel sounds positive soft nontender, no HSM, masses, or bruits. Extremities no cyanosis, clubbing, or edema Pulses 2+ equal in radial arteries Psychological not anxious or depressed Neuro alert and oriented x3 motor 5/5 cranial nerves 2-12 intact reflexes 2+ and equal in the biceps and patellar tendons cerebellar normal rapid alternating movements Results Lab Results 12/26/24 03:55 12/26/24 03:55 Lab results: Most recent lab results Calcium 8.5 mg/dL (8.4-10.2) 12/26/24 03:55 Phosphorus 4.5 mg/dL (2.5-4.5) 12/26/24 03:55 Magnesium 1.8 mg/dL (1.6-2.3) 12/26/24 03:55
--- NOTE | 2024-12-26 10:29 | PM.IMPN ---
Progress Note: A&P Assessment and Plan (1) Severe hyperglycemia due to diabetes mellitus: Code(s): E11.65 - Type 2 diabetes mellitus with hyperglycemia Status: Acute Assessment and Plan: Patient has history of prediabetes but not does not on any treatment. He presented with severe hyper glycemia of 13.4 He had mildly abnormal beta hydroxybutyrate but normal anion gap He was started on insulin infusion and IV fluids Blood glucose levels have improved and patient was transition to subcutaneous insulin overnight I will continue Lantus and change to 25 units at bedtime I will add 5 units of subcu insulin with meals. Continue sliding scale Add metformin Consult dietitian and inclusion special educator Continue IV fluids but decrease rate for another 24 hours Consistent carbohydrate diet (2) Hypertension: Qualifiers: Hypertension type: essential hypertension Qualified Code(s): I10 - Essential (primary) hypertension Code(s): I10 - Essential (primary) hypertension Status: Acute Assessment and Plan: Continue Norvasc. HCTZ and lisinopril is on hold due to ANAY and hypovolemia (3) Acute on chronic kidney failure: Code(s): N17.9 - Acute kidney failure, unspecified; N18.9 - Chronic kidney disease, unspecified Status: Acute Assessment and Plan: Patient has history of chronic kidney disease likely secondary to diabetes and hypertension. He presented with elevated creatinine at 2.39 This is likely secondary to hypovolemia and dehydration from poorly controlled diabetes Creatinine is improving now with IV fluids Normal CK Check urine electrolytes Check renal ultrasound Monitor urine output electrolytes and creatinine (4) COPD (chronic obstructive pulmonary disease): Qualifiers: COPD type: unspecified COPD Qualified Code(s): J44.9 - Chronic obstructive pulmonary disease, unspecified Code(s): J44.9 - Chronic obstructive pulmonary disease, unspecified Status: Acute Assessment and Plan: Underlying COPD but not in exacerbation Supplemental oxygen Bronchodilator (5) Electrolyte abnormality: Code(s): E87.8 - Other disorders of electrolyte and fluid balance, not elsewhere classified Status: Acute Assessment and Plan: Replace low potassium Plan DVT prophylaxis -Lovenox Nutrition -diabetic diet Code Status - Full Code Incentive spirometry, up in chair Transfer out of ICU today Subjective Date/time seen: 12/26/24 10:29 Interval history: Had a long discussion with family and the patient. 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 Has to sell house to down size. Not eating well and lost 10-15 pounds in about few months.According to pt his last HbA1c was 6.8 about 5 months ago He managed with diet.Past 2 days he was not feeling and brought to ED and found to be in DKA with HbA1c in 13.4. No evidence of steroids,drinking heavy sodas/juice ,candy all day,pancreatitis,pancreatic cancer, SGLT2 use. Review of Systems Review of Systems: 12 systems were reviewed and are negative except for as per HPI. All systems reviewed & are unremarkable except as noted in HPI and below (HPI) Exam Narrative: General: Pt is alert awake and in NAD Lungs/Chest: Trachea central Clear BS B/L, No crackles or wheezing. Cardiac: RRR. Normal S1 S2. No murmurs Circulation: Pedal pulses are intact and symmetrical. Abdomen: Normal bowel sounds.. Soft. NT. ND. Extremities: No clubbing, cyanosis or edema. Warm : Reyes in place Neurologic: Follows commands. Moves all 4 extremities PERRL Skin: No Rash Objective Data Vital Signs Vital Signs: Vital Signs - 24 hr 12/25/24 13:37 12/25/24 13:42 12/25/24 14:01 Temperature 97.9 F Pulse Rate 84 84 80 Respiratory Rate 22 H 16 17 Blood Pressure 135/62 135/62 118/72 Pulse Oximetry 93 98 95 Oxygen Delivery Room Air Oxygen Flow Rate Fraction of Inspired Oxygen 12/25/24 15:01 12/25/24 15:30 12/25/24 16:02 Temperature Pulse Rate 72 73 86 Respiratory Rate 19 19 15 Blood Pressure 122/56 L Pulse Oximetry 96 95 97 Oxygen Delivery Oxygen Flow Rate Fraction of Inspired Oxygen 12/25/24 16:04 12/25/24 16:09 12/25/24 16:15 Temperature 97.5 F L Pulse Rate 83 72 75 Respiratory Rate 13 15 17 Blood Pressure 158/84 H 158/84 H Pulse Oximetry 97 97 94 Oxygen Delivery Oxygen Flow Rate Fraction of Inspired Oxygen 12/25/24 16:16 12/25/24 16:30 12/25/24 16:31 Temperature Pulse Rate 73 71 78 Respiratory Rate 14 23 H 17 Blood Pressure 158/87 H Pulse Oximetry 94 95 95 Oxygen Delivery Oxygen Flow Rate Fraction of Inspired Oxygen 12/25/24 16:45 12/25/24 16:48 12/25/24 17:15 Temperature Pulse Rate 93 68 Respiratory Rate 18 14 Blood Pressure 132/63 Pulse Oximetry 96 97 94 Oxygen Delivery Room Air Oxygen Flow Rate Fraction of Inspired Oxygen 12/25/24 18:00 12/25/24 18:00 12/25/24 20:00 Temperature Pulse Rate 68 68 70 Respiratory Rate 15 Blood Pressure 115/69 Pulse Oximetry 92 Oxygen Delivery Oxygen Flow Rate Fraction of Inspired Oxygen 12/25/24 20:10 12/25/24 22:00 12/25/24 22:00 Temperature Pulse Rate 70 72 72 Respiratory Rate 21 H 19 Blood Pressure 135/64 151/69 H Pulse Oximetry 92 93 Oxygen Delivery Oxygen Flow Rate Fraction of Inspired Oxygen 12/25/24 22:13 12/26/24 00:00 12/26/24 00:00 Temperature 98.0 F Pulse Rate 72 85 76 Respiratory Rate 12 Blood Pressure 124/58 L Pulse Oximetry 94 92 Oxygen Delivery Room Air Oxygen Flow Rate Fraction of Inspired Oxygen 21 12/26/24 02:17 12/26/24 02:17 12/26/24 02:45 Temperature Pulse Rate 70 70 Respiratory Rate 17 Blood Pressure 122/61 Pulse Oximetry 90 92 Oxygen Delivery Nasal Cannula Oxygen Flow Rate 2 Fraction of Inspired Oxygen 12/26/24 04:00 12/26/24 04:00 12/26/24 04:00 Temperature 97.9 F Pulse Rate 71 79 71 Respiratory Rate 17 17 Blood Pressure 169/82 H Pulse Oximetry 94 94 Oxygen Delivery Nasal Cannula Oxygen Flow Rate 2 Fraction of Inspired Oxygen 12/26/24 06:00 12/26/24 06:00 12/26/24 06:30 Temperature Pulse Rate 58 L 58 L Respiratory Rate 18 Blood Pressure 88/48 L 98/45 L Pulse Oximetry 94 Oxygen Delivery Oxygen Flow Rate Fraction of Inspired Oxygen 12/26/24 07:45 12/26/24 08:00 12/26/24 08:30 Temperature 97.5 F L Pulse Rate 71 75 Respiratory Rate 18 22 H Blood Pressure 98/45 L 125/98 H Pulse Oximetry 95 93 90 Oxygen Delivery Room Air Oxygen Flow Rate Fraction of Inspired Oxygen 12/26/24 08:31 12/26/24 08:31 Temperature Pulse Rate 76 76 Respiratory Rate 20 20 Blood Pressure Pulse Oximetry 91 Oxygen Delivery Room Air Oxygen Flow Rate Fraction of Inspired Oxygen Intake/Output Intake/Output: Intake & Output 12/23/24 12/24/24 12/25/24 12/26/24 23:59 23:59 23:59 23:59 Intake Total 3007.6 1618.3667 Output Total 425 600 Balance 2582.6 1018.3667 Meds/Results Medications: Active Medications Generic Name Dose Route Start Last Admin Trade Name Freq PRN Reason Stop Dose Admin Acetaminophen 650 mg 12/25/24 14:48 Acetaminophen 325 Mg Tablet PO Q4H PRN Mild Pain (1-3) or Fever Allopurinol 100 mg 12/26/24 09:00 12/26/24 08:28 Allopurinol 100 Mg Tablet PO 100 mg DAILY YISSEL Administration Amlodipine Besylate 10 mg 12/26/24 09:00 12/26/24 08:28 Amlodipine Besylate 5 Mg Tablet BY MOUTH 10 mg DAILY YISSEL Administration Dextrose 12.5 gm 12/26/24 07:26 Dextrose 50% 25 Gm/50 Ml Syringe IV PUSH PRN PRN Hypoglycemia Protocol Enoxaparin Sodium 40 mg 12/26/24 09:00 12/26/24 08:27 Enoxaparin 40 Mg/0.4 Ml Syringe SUB-Q 40 mg DAILY YISSEL Administration Glucagon 1 mg 12/26/24 07:26 Glucagon For Inj 1 Mg Vial IM PRN PRN Hypoglycemia Protocol Glucose 15 gm 12/26/24 07:26 Glucose Oral Gel 15 Gm Of Glucse In 37.5 Gm Tube PO PRN PRN Hypoglycemia Protocol Lactated Ringer's 1,000 mls @ 50 mls/hr 12/25/24 21:30 12/26/24 07:49 Lr - Lactated Ringers Iv IV CONT 12/26/24 21:29 50 mls/hr .Q20H YISSEL Infusion Dextrose 1,000 mls @ 100 mls/hr 12/26/24 07:26 Dextrose 5% 1,000 Ml IVPB PRN PRN Hypoglycemia Protocol Insulin Aspart 3 - 6 units 12/26/24 08:00 12/26/24 07:49 Insulin Aspart (*Bkc) 100 Units/Ml SUB-Q 3 units TIDWM YISSEL Administration Protocol Insulin Aspart 1 - 3 units 12/26/24 21:00 Insulin Aspart (*Bkc) 100 Units/Ml SUB-Q HS YISSEL Protocol Insulin Aspart 5 units 12/26/24 08:00 12/26/24 07:49 Insulin Aspart (*Bkc) 100 Units/Ml 0.05 units/kg (5 units) 5 units SUB-Q Administration TIDWM [facility] Insulin Glargine 25 units 12/26/24 21:00 Insulin Glargine (*Bkc) 100 Units/Ml SUB-Q HS [facility] Metformin HCl 500 mg 12/26/24 08:00 12/26/24 07:48 Metformin Hcl 500 Mg Tablet PO 500 mg BIDWM YISSEL Administration Ondansetron HCl 4 mg 12/25/24 14:48 Ondansetron Inj 4 Mg/2 Ml Vial IV PUSH Q4H PRN Nausea Potassium Chloride 20 meq 12/26/24 12:00 Potassium Chloride 20 Meq Packet (For Liquid) PO 12/26/24 12:01 ONCE ONE Fluticasone/Salmeterol 2 puff 12/25/24 20:00 12/26/24 08:30 Fluticasone/Salmeterol 115-21 Mcg Inhaler 1 Puff INHALATION 2 puff Q12HRT YISSEL Administration Simvastatin 20 mg 12/26/24 09:00 12/26/24 08:27 Simvastatin 20 Mg Tablet PO 20 mg DAILY YISSEL Administration Tamsulosin HCl 0.4 mg 12/25/24 21:00 12/25/24 20:46 Tamsulosin Hcl 0.4 Mg Capsule BY MOUTH 0.4 mg HS YISSEL Administration Labs Labs: Laboratory Results - last 24 hr 12/25/24 12/25/24 12/25/24 13:51 13:56 14:08 WBC 7.7 RBC 4.56 L Hgb 13.5 L Hct 40.6 L MCV 89.0 MCH 29.6 MCHC 33.3 RDW 13.5 Plt Count 180 MPV 13.0 H Immature Gran % (Auto) 0.7 H Neut % (Auto) 74.5 H Lymph % (Auto) 11.4 L [place] % (Auto) 9.7 H Eos % (Auto) 2.7 Baso % (Auto) 1.0 Lymph # (Auto) 0.87 L [place] # (Auto) 0.7 H Eos # (Auto) 0.2 Baso # (Auto) 0.1 Abs Immat Gran (auto) 0.05 H Absolute Neuts (auto) 5.7 Absolute Nucleated RBC 0.000 Nucleated RBC % 0.0 VBG pH 7.395 VBG pCO2 39.6 L VBG pO2 37.2 VBG HCO3 23.7 L O2 Delivery Device Room air O2 Liters/Min Not Reportable FiO2 21 Sodium 128 L Potassium 4.3 Chloride 90 L Carbon Dioxide 25 Anion Gap 13 H BUN 45 H D Creatinine 2.39 H Estim Creat Clear Calc 29 Estimated GFR 26 L Glucose 756 H* POC Capillary Glucose > 500 H* Hemoglobin A1c 13.4 H Calcium 9.1 Phosphorus 3.4 Magnesium 1.5 L Total Bilirubin 1.3 AST 23 ALT 19 Alkaline Phosphatase 99 Total Creatine Kinase Total Protein 7.0 Albumin 4.2 Beta-Hydroxybutyrate/Acetoacetate 1.24 H TSH (Reflex) Urine Color Urine Appearance Urine pH Ur Specific [place] Urine Protein Urine Glucose (UA) Urine Ketones Ur Blood (Man) Urine Nitrate Urine Bilirubin Urine Urobilinogen Add Ur Microanalysis Leukocyte Esterase Rfl Urine RBC Urine WBC Ur Squamous Epith Cells Urine Bacteria Urine Casts Hyaline Casts Granular Casts Urine Mucus Nasal MRSA (PCR) 12/25/24 12/25/24 12/25/24 14:10 15:24 16:11 WBC RBC Hgb Hct MCV MCH MCHC RDW Plt Count MPV Immature Gran % (Auto) Neut % (Auto) Lymph % (Auto) [place] % (Auto) Eos % (Auto) Baso % (Auto) Lymph # (Auto) [place] # (Auto) Eos # (Auto) Baso # (Auto) Abs Immat Gran (auto) Absolute Neuts (auto) Absolute Nucleated RBC Nucleated RBC % VBG pH VBG pCO2 VBG pO2 VBG HCO3 O2 Delivery Device O2 Liters/Min FiO2 Sodium Potassium Chloride Carbon Dioxide Anion Gap BUN Creatinine Estim Creat Clear Calc Estimated GFR Glucose POC Capillary Glucose > 500 H* 438 H Hemoglobin A1c Calcium Phosphorus Magnesium Total Bilirubin AST ALT Alkaline Phosphatase Total Creatine Kinase Total Protein Albumin Beta-Hydroxybutyrate/Acetoacetate TSH (Reflex) Urine Color Yellow Urine Appearance Cloudy H Urine pH 5.0 Ur Specific [place] 1.027 Urine Protein 1+ H Urine Glucose (UA) 3+ H Urine Ketones Trace H Ur Blood (Man) Negative Urine Nitrate Negative Urine Bilirubin Negative Urine Urobilinogen 0.2 Add Ur Microanalysis Reviewed Leukocyte Esterase Rfl Negative Urine RBC 0-2 Urine WBC 0-5 Ur Squamous Epith Cells Occasional Urine Bacteria None seen Urine Casts 11-20 Hyaline Casts 1-2 Granular Casts 1-2 H Urine Mucus Present Nasal MRSA (PCR) 12/25/24 12/25/24 12/25/24 16:32 16:36 17:01 WBC RBC Hgb Hct MCV MCH MCHC RDW Plt Count MPV Immature Gran % (Auto) Neut % (Auto) Lymph % (Auto) [place] % (Auto) Eos % (Auto) Baso % (Auto) Lymph # (Auto) [place] # (Auto) Eos # (Auto) Baso # (Auto) Abs Immat Gran (auto) Absolute Neuts (auto) Absolute Nucleated RBC Nucleated RBC % VBG pH VBG pCO2 VBG pO2 VBG HCO3 O2 Delivery Device O2 Liters/Min FiO2 Sodium 136 L Potassium 6.0 H* Chloride 107 Carbon Dioxide 23 Anion Gap 6 BUN 36 H Creatinine 1.76 H Estim Creat Clear Calc 39 Estimated GFR 38 L Glucose 306 H POC Capillary Glucose 260 H Hemoglobin A1c Calcium 7.5 L Phosphorus 2.1 L Magnesium 1.2 L Total Bilirubin AST ALT Alkaline Phosphatase Total Creatine Kinase Total Protein Albumin Beta-Hydroxybutyrate/Acetoacetate TSH (Reflex) Urine Color Urine Appearance Urine pH Ur Specific [place] Urine Protein Urine Glucose (UA) Urine Ketones Ur Blood (Man) Urine Nitrate Urine Bilirubin Urine Urobilinogen Add Ur Microanalysis Leukocyte Esterase Rfl Urine RBC Urine WBC Ur Squamous Epith Cells Urine Bacteria Urine Casts Hyaline Casts Granular Casts Urine Mucus Nasal MRSA (PCR) Not detected 12/25/24 12/25/24 12/25/24 17:58 18:57 20:10 WBC RBC Hgb Hct MCV MCH MCHC RDW Plt Count MPV Immature Gran % (Auto) Neut % (Auto) Lymph % (Auto) [place] % (Auto) Eos % (Auto) Baso % (Auto) Lymph # (Auto) [place] # (Auto) Eos # (Auto) Baso # (Auto) Abs Immat Gran (auto) Absolute Neuts (auto) Absolute Nucleated RBC Nucleated RBC % VBG pH VBG pCO2 VBG pO2 VBG HCO3 O2 Delivery Device O2 Liters/Min FiO2 Sodium Potassium Chloride Carbon Dioxide Anion Gap BUN Creatinine Estim Creat Clear Calc Estimated GFR Glucose POC Capillary Glucose 137 H 96 117 H Hemoglobin A1c Calcium Phosphorus Magnesium Total Bilirubin AST ALT Alkaline Phosphatase Total Creatine Kinase Total Protein Albumin Beta-Hydroxybutyrate/Acetoacetate TSH (Reflex) Urine Color Urine Appearance Urine pH Ur Specific [place] Urine Protein Urine Glucose (UA) Urine Ketones Ur Blood (Man) Urine Nitrate Urine Bilirubin Urine Urobilinogen Add Ur Microanalysis Leukocyte Esterase Rfl Urine RBC Urine WBC Ur Squamous Epith Cells Urine Bacteria Urine Casts Hyaline Casts Granular Casts Urine Mucus Nasal MRSA (PCR) 12/25/24 12/25/24 12/25/24 20:50 21:21 22:06 WBC RBC Hgb Hct MCV MCH MCHC RDW Plt Count MPV Immature Gran % (Auto) Neut % (Auto) Lymph % (Auto) [place] % (Auto) Eos % (Auto) Baso % (Auto) Lymph # (Auto) [place] # (Auto) Eos # (Auto) Baso # (Auto) Abs Immat Gran (auto) Absolute Neuts (auto) Absolute Nucleated RBC Nucleated RBC % VBG pH VBG pCO2 VBG pO2 VBG HCO3 O2 Delivery Device O2 Liters/Min FiO2 Sodium 137 Potassium 3.0 L Chloride 98 Carbon Dioxide 29 Anion Gap 10 BUN 39 H Creatinine 1.98 H Estim Creat Clear Calc 34 Estimated GFR 33 L Glucose 118 H POC Capillary Glucose 142 H 136 H Hemoglobin A1c Calcium 9.2 Phosphorus Magnesium Total Bilirubin AST ALT Alkaline Phosphatase Total Creatine Kinase Total Protein Albumin Beta-Hydroxybutyrate/Acetoacetate TSH (Reflex) Urine Color Urine Appearance Urine pH Ur Specific [place] Urine Protein Urine Glucose (UA) Urine Ketones Ur Blood (Man) Urine Nitrate Urine Bilirubin Urine Urobilinogen Add Ur Microanalysis Leukocyte Esterase Rfl Urine RBC Urine WBC Ur Squamous Epith Cells Urine Bacteria Urine Casts Hyaline Casts Granular Casts Urine Mucus Nasal MRSA (PCR) 12/26/24 12/26/24 12/26/24 00:09 03:55 07:19 WBC 6.8 RBC 4.12 L Hgb 12.3 L Hct 36.0 L MCV 87.4 MCH 29.9 MCHC 34.2 RDW 13.3 Plt Count 157 MPV 12.0 H Immature Gran % (Auto) Neut % (Auto) Lymph % (Auto) [place] % (Auto) Eos % (Auto) Baso % (Auto) Lymph # (Auto) [place] # (Auto) Eos # (Auto) Baso # (Auto) Abs Immat Gran (auto) Absolute Neuts (auto) Absolute Nucleated RBC Nucleated RBC % VBG pH VBG pCO2 VBG pO2 VBG HCO3 O2 Delivery Device O2 Liters/Min FiO2 Sodium 135 L Potassium 3.3 L Chloride 101 Carbon Dioxide 27 Anion Gap 7 BUN 37 H Creatinine 1.84 H Estim Creat Clear Calc 37 Estimated GFR 36 L Glucose 250 H POC Capillary Glucose 240 H 236 H Hemoglobin A1c Calcium 8.5 Phosphorus 4.5 Magnesium 1.8 Total Bilirubin AST ALT Alkaline Phosphatase Total Creatine Kinase 117 Total Protein Albumin Beta-Hydroxybutyrate/Acetoacetate TSH (Reflex) 1.480 Urine Color Urine Appearance Urine pH Ur Specific [place] Urine Protein Urine Glucose (UA) Urine Ketones Ur Blood (Man) Urine Nitrate Urine Bilirubin Urine Urobilinogen Add Ur Microanalysis Leukocyte Esterase Rfl Urine RBC Urine WBC Ur Squamous Epith Cells Urine Bacteria Urine Casts Hyaline Casts Granular Casts Urine Mucus Nasal MRSA (PCR) Quality VTE Prophylaxis VTE prophylaxis: pharmacologic ordered Hospitalist MIPS Advance Care Plan I have confirmed that the patient's Advanced Care Plan is present, code status is documented, or surrogate decision maker is listed in patient medical record.: Yes Medication Reconciliation I have utilized all available resources to obtain, update and review the patients current medications (includes all prescriptions, OTC, herbals, cannabis, and nutritional supplements).: Yes
[2024-12-26 11:29] LABS: Glucose Point of Care 306 mg/dl (65-105)
[2024-12-26] MEDS: POTASSIUM CHLORIDE 20 MEQ PACKET (FOR LIQUID) PO (11:31)
--- NOTE | 2024-12-26 11:40 | PC.NURSE ---
This patient, Nigel Starks, was transferred to [facility] on 12/26/24 at 1138. Personal belongings sent with patient. Report given to Mandy MCKEON. Appropriate documentation sent with patient.
--- NOTE | 2024-12-26 11:40 | PC.NURSE ---
Transfer received per wheelchair from ICU.
[2024-12-26 12:34] LABS: Sodium Urine Random 78 meq/L
[2024-12-26 15:52] LABS: Alanine Aminotransferase 18 U/L (6-50); Albumin Level 3.9 g/dL (3.5-5.1); Alkaline Phosphatase 80 U/L (38-126); Anion Gap 8 mmol/L (4-12); Aspartate Amino Transferase 26 U/L (17-59); Bilirubin,Total 0.8 mg/dL (0.2-1.3); Blood Urea Nitrogen 32 mg/dL (9-20); Calcium 9.1 mg/dL (8.4-10.2); Carbon Dioxide 28 mmol/L (22-30); Chloride 100 mmol/L (98-107); Estimated CRCL calculation 42 ml/min; Estimated Glomerular Filt Rate 41; Glucose 233 mg/dL (65-110); Sodium 136 mmol/L (137-145)
[2024-12-26] MEDS: TAMSULOSIN HCL 0.4 MG CAPSULE BY MOUTH (20:21)
[2024-12-26] MEDS: INSULIN GLARGINE (*BKC) 100 UNITS/ML 25 UNITS SUB-Q (20:24)
[2024-12-26 22:43] LABS: Glucose Point of Care 238 mg/dl (65-105)
[2024-12-27] VITALS: PULSE 74
[2024-12-27 00:58] LABS: Glucose Point of Care 174 mg/dl (65-105)
[2024-12-27 04:00] VITALS: PULSE 60
[2024-12-27 04:34] VITALS: BP 121/62; PULSE 69; RESP 16; TEMP 36.6; O2SAT 96
[2024-12-27 05:41] LABS: Glucose Point of Care 145 mg/dl (65-105)
[2024-12-27 05:48] LABS: Hematocrit 36.8 % (42.0-52.0); Hemoglobin 12.3 g/dL (14.0-18.0); Mean Corpuscular HGB Conc 33.4 g/dl (32-36); Mean Corpuscular Hemoglobin 30.1 pg (26-34); Mean Corpuscular Volume 90.2 fl (80-100); Mean Platelet Volume 12.5 fl (7.4-10.4); Platelet Count Result 162 k/mm3 (150-375); Red Blood Count 4.08 M/mm3 (4.6-6.20); Red Cell Distribution Width 13.7 % (11.5-14.5); White Blood Count 5.8 K/mm3 (4.5-10.0)
[2024-12-27 06:02] LABS: Alanine Aminotransferase 15 U/L (6-50); Albumin Level 3.3 g/dL (3.5-5.1); Alkaline Phosphatase 72 U/L (38-126); Anion Gap 7 mmol/L (4-12); Aspartate Amino Transferase 19 U/L (17-59); Bilirubin,Total 0.7 mg/dL (0.2-1.3); Blood Urea Nitrogen 26 mg/dL (9-20); Calcium 8.7 mg/dL (8.4-10.2); Carbon Dioxide 29 mmol/L (22-30); Chloride 101 mmol/L (98-107); Estimated CRCL calculation 46 ml/min; Estimated Glomerular Filt Rate 46; Glucose 136 mg/dL (65-110); Magnesium 1.4 mg/dL (1.6-2.3); Phosphorus 3.4 mg/dL (2.5-4.5); Potassium 3.5 mmol/L (3.4-5.0); Sodium 137 mmol/L (137-145)
[2024-12-27 08:00] VITALS: PULSE 66; O2SAT 96
[2024-12-27 08:08] LABS: Glucose Point of Care 143 mg/dl (65-105)
[2024-12-27] MEDS: FLUTICASONE/SALMETEROL 115-21 MCG INHALER 1 PUFF 2 PUFF INHALATION (08:12)
[2024-12-27] MEDS: allopurinoL 100 MG TABLET PO (08:43)
[2024-12-27] MEDS: metFORMIN HCL 500 MG TABLET PO (08:43)
[2024-12-27] MEDS: SIMVASTATIN 20 MG TABLET PO (08:44)
[2024-12-27] MEDS: INSULIN ASPART (*BKC) 100 UNITS/ML SUB-Q (08:44)
[2024-12-27] MEDS: ENOXAPARIN 40 MG/0.4 ML SYRINGE SUB-Q (08:44)
[2024-12-27] MEDS: amLODIPine BESYLATE 5 MG TABLET 10 MG BY MOUTH (08:44)
[2024-12-27 08:49] LABS: Lipase 48 U/L (23-300)
[2024-12-27 09:30] VITALS: BMI 31.3
[2024-12-27 11:53] LABS: Glucose Point of Care 185 mg/dl (65-105)
[2024-12-27 12:00] VITALS: PULSE 68
--- NOTE | 2024-12-27 12:02 | P.PNNP_ITS ---
Progress Note: A&P Assessment and Plan (1) Acute kidney injury: Code(s): N17.9 - Acute kidney failure, unspecified Status: Acute Assessment and Plan: * as noted on admission * slow improvement already noted (if not back to baseline) * evaluation to date noted: * renal ultrasound wikthout obstruction * CPK okay * urine electrolytes prerenal * UA without evidence of infection * likely due to volume depletion/dehydration in context of hyperglycemia * follow repeat labs and UOP * continue supportive therapy (2) Stage 3b chronic kidney disease: Code(s): N18.32 - Chronic kidney disease, stage 3b Status: Chronic Assessment and Plan: * baseline creatinine runs around 1.2 - 1.7mg/dl for the last few years (although it has been high as 2.0mg/dl) * this causes him to fluctuate between CKD stage 3A and stage 3B * outpatient evaluation noted: * normal renal ultrasound, normal serologies, and mild proteinuria * suspected etiology falls on previous NSAID use and hypertension along with age-related change (3) Severe hyperglycemia due to diabetes mellitus: Code(s): E11.65 - Type 2 diabetes mellitus with hyperglycemia Status: Acute Assessment and Plan: * as noted on presentation * treated with insulin gtt and IVF resuscitation * now transitioned to Lantus and SQ insulin with meals * diabetic education * dietary education as well (4) Hyponatremia: Code(s): E87.1 - Hypo-osmolality and hyponatremia Status: Acute Assessment and Plan: * resolved * likely secondary to hyperglycemia along with volume depletion * improving s/p IVF hydration * follow the trend (5) Hypertension: Qualifiers: Hypertension type: essential hypertension Qualified Code(s): I10 - Essential (primary) hypertension Code(s): I10 - Essential (primary) hypertension Status: Acute Assessment and Plan: * reasonable control * slowly restart/resume COLETTE-I and thiazide diuretics * follow trend of hemodynamics (6) COPD (chronic obstructive pulmonary disease): Qualifiers: COPD type: unspecified COPD Qualified Code(s): J44.9 - Chronic obstructive pulmonary disease, unspecified Code(s): J44.9 - Chronic obstructive pulmonary disease, unspecified Status: Acute Assessment and Plan: * known history * not in exacerbation * supportive therapy Not opposed to discharge from renal perspective if otherwise medically stable -- he can follow-up with me in the office for ongoing CKD management as schedule. Will continue to follow. Subjective Date/time seen: 12/27/24 12:02 Interval history: Follow-up for acute kidney injury/acute renal failure on chronic kidney disease. Chart reviewed -- assuming care from Dr. Richardson; transferred out of ICU yesterday; renal function/creatinine continues to improve (if not back to baseline); no apparent distress voiced at the time of my visit; and daughter at bedside and we discussed the situation. Exam 2 Narrative: General: elderly but WD/WN male in NAD Heart: normal S1 and S2; no rub Lungs: clear to auscultation Abdomen: soft, nontender, nondistended, positive bowel sounds Extremities: no cyanosis or clubbing; no edema Skin: warm and dry Objective Data Vital Signs Vital Signs: Vital Signs Temp Pulse Resp BP Pulse Ox O2 Del Method 12/27/24 12:00 68 12/27/24 08:00 66 12/27/24 08:00 96 Room Air 12/27/24 04:34 97.9 F 69 16 121/62 96 12/27/24 04:00 60 12/27/24 00:00 74 12/26/24 20:21 97.9 F 73 16 127/67 95 12/26/24 20:00 86 12/26/24 20:00 94 Room Air 12/26/24 16:00 76 12/26/24 14:05 97.6 F 69 17 113/54 L 94 Intake/Output Intake/Output: Intake & Output 12/24/24 12/25/24 12/26/24 12/27/24 23:59 23:59 23:59 23:59 Intake Total 3007.6 2378.3667 540 Output Total 425 900 Balance 2582.6 1478.3667 540 Meds/Results Medications: Active Medications Generic Name Dose Route Start Last Admin Trade Name Freq PRN Reason Stop Dose Admin Acetaminophen 650 mg 12/25/24 14:48 Acetaminophen 325 Mg Tablet PO Q4H PRN Mild Pain (1-3) or Fever Allopurinol 100 mg 12/26/24 09:00 12/27/24 08:43 Allopurinol 100 Mg Tablet PO 100 mg DAILY YISSEL Administration Amlodipine Besylate 10 mg 12/26/24 09:00 12/27/24 08:44 Amlodipine Besylate 5 Mg Tablet BY MOUTH 10 mg DAILY YISSEL Administration Dextrose 12.5 gm 12/26/24 07:26 Dextrose 50% 25 Gm/50 Ml Syringe IV PUSH PRN PRN Hypoglycemia Protocol Enoxaparin Sodium 40 mg 12/26/24 09:00 12/27/24 08:44 Enoxaparin 40 Mg/0.4 Ml Syringe SUB-Q 40 mg DAILY YISSEL Administration Glucagon 1 mg 12/26/24 07:26 Glucagon For Inj 1 Mg Vial IM PRN PRN Hypoglycemia Protocol Glucose 15 gm 12/26/24 07:26 Glucose Oral Gel 15 Gm Of Glucse In 37.5 Gm Tube PO PRN PRN Hypoglycemia Protocol Dextrose 1,000 mls @ 100 mls/hr 12/26/24 07:26 Dextrose 5% 1,000 Ml IVPB PRN PRN Hypoglycemia Protocol Insulin Aspart 3 - 6 units 12/26/24 08:00 12/27/24 12:03 Insulin Aspart (*Bkc) 100 Units/Ml SUB-Q Not Given TIDWM [facility] Protocol Insulin Aspart 1 - 3 units 12/26/24 21:00 12/26/24 20:25 Insulin Aspart (*Bkc) 100 Units/Ml SUB-Q 1 units HS YISSEL Administration Protocol Insulin Aspart 5 units 12/26/24 08:00 12/27/24 08:44 Insulin Aspart (*Bkc) 100 Units/Ml 0.05 units/kg (5 units) 5 units SUB-Q Administration TIDWM [facility] Insulin Glargine 25 units 12/26/24 21:00 12/26/24 20:24 Insulin Glargine (*Bkc) 100 Units/Ml SUB-Q 25 units HS YISSEL Administration Metformin HCl 500 mg 12/26/24 08:00 12/27/24 08:43 Metformin Hcl 500 Mg Tablet PO 500 mg BIDWM YISSEL Administration Ondansetron HCl 4 mg 12/25/24 14:48 Ondansetron Inj 4 Mg/2 Ml Vial IV PUSH Q4H PRN Nausea Fluticasone/Salmeterol 2 puff 12/25/24 20:00 12/27/24 08:12 Fluticasone/Salmeterol 115-21 Mcg Inhaler 1 Puff INHALATION 2 puff Q12HRT YISSEL Administration Simvastatin 20 mg 12/26/24 09:00 12/27/24 08:44 Simvastatin 20 Mg Tablet PO 20 mg DAILY YISSEL Administration Tamsulosin HCl 0.4 mg 12/25/24 21:00 12/26/24 20:21 Tamsulosin Hcl 0.4 Mg Capsule BY MOUTH 0.4 mg HS YISSEL Administration Radiology Results: ITS Impressions Renal Ultrasound 12/26/24 14:27 IMPRESSION: Bilateral renal cysts. Otherwise, no abnormality seen. Abdomen/Pelvis CT 12/27/24 12:05 IMPRESSION: 1. No evidence of appendicitis, diverticulitis or intestinal obstruction. 2. Bilateral fat containing inguinal hernias. 3. Stone in the right kidney lower pole. Bilateral kidney cysts. 4. Hypodensity in the liver which may be a cyst. Follow-up advised. Labs Labs: Laboratory Tests 12/27/24 05:30 12/27/24 05:30
--- NOTE | 2024-12-27 12:47 | P.DS_ITS ---
DS: Admitting Diagnosis Discharge Date 0 12/27/2024 Admitting Diagnosis DKA DS: Discharge Diagnosis Discharge Diagnosis (1) Severe hyperglycemia due to diabetes mellitus: Code(s): E11.65 - Type 2 diabetes mellitus with hyperglycemia Status: Acute Assessment and Plan: Patient has history of prediabetes but not does not on any treatment. He presented with severe hyper glycemia of 13.4 He had mildly abnormal beta hydroxybutyrate but normal anion gap He was started on insulin infusion and IV fluids Blood glucose levels have improved and patient was transition to subcutaneous insulin overnight I will continue Lantus and change to 25 units at bedtime I will add 5 units of subcu insulin with meals. Continue sliding scale Add metformin Consult dietitian and ems educator Continue IV fluids but decrease rate for another 24 hours Consistent carbohydrate diet (2) Hypertension: Qualifiers: Hypertension type: essential hypertension Qualified Code(s): I10 - Essential (primary) hypertension Code(s): I10 - Essential (primary) hypertension Status: Acute Assessment and Plan: Continue Norvasc. HCTZ and lisinopril is on hold due to ANAY and hypovolemia (3) Acute on chronic kidney failure: Code(s): N17.9 - Acute kidney failure, unspecified; N18.9 - Chronic kidney disease, unspecified Status: Acute Assessment and Plan: Patient has history of chronic kidney disease likely secondary to diabetes and hypertension. He presented with elevated creatinine at 2.39 This is likely secondary to hypovolemia and dehydration from poorly controlled diabetes Creatinine is improving now with IV fluids Normal CK Check urine electrolytes Check renal ultrasound Monitor urine output electrolytes and creatinine (4) COPD (chronic obstructive pulmonary disease): Qualifiers: COPD type: unspecified COPD Qualified Code(s): J44.9 - Chronic obstructive pulmonary disease, unspecified Code(s): J44.9 - Chronic obstructive pulmonary disease, unspecified Status: Acute Assessment and Plan: Underlying COPD but not in exacerbation Supplemental oxygen Bronchodilator (5) Electrolyte abnormality: Code(s): E87.8 - Other disorders of electrolyte and fluid balance, not elsewhere classified Status: Acute Assessment and Plan: Replace low potassium DS: Summary Hospital Course Hospital Course: 79-year-old male with type 2 diabetes mellitus, hypertension, dyslipidemia, chronic kidney disease stage 3, and benign prostatic hyperplasia who presented to the emergency department from urgent care for further evaluation and treatment of high blood sugar. He tells me that he has been prediabetic for ?years? though his hemoglobin has been as high as 7.0 in December 2023. More recently he has been experiencing polydipsia and polyuria as well as intermittent dizziness and lightheadedness, mainly with position changes. At times he has noticed that his vision is a bit blurry as well. He admits that he has not been very good about his diet for the last 6 weeks, mainly eating fast food as he and his are getting their house of 40 years ready to sell. He used his 's glucometer today which read ?HIGH? and came in for evaluation. He is otherwise feeling okay and denies fever, chills, sweats, cold and flu symptoms, nausea, vomiting, diarrhea, and dysuria. In the ED: Vital signs were stable on arrival. Labs were significant for a sodium of 128, chloride 90, carbon dioxide 25, anion gap 13, BUN 45, creatinine 2.39, glucose 756, magnesium 1.5, beta hydroxybutyrate 1.24, hemoglobin A1c 13.4%. Urinalysis was positive for 1+ protein, 3+ glucose, and trace ketones. VBG showed a pH of 7.395, pCO2 39.6, HC03 23.7. He was given 2 L crystalloid bolus and was started on insulin drip he is being admitted in this setting for further treatment. I assumed care on 12/26: Patient DKA resolved. Patient was transferred from ICU to floor. Had long discussion with family and the patient. 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 Had to sell his house to down size. Not eating well and lost 10-15 pounds in about few months.According to pt his last HbA1c was 6.8 about 5 months ago which he managed with diet.Past 2 days he was not feeling and brought to ED and found to be in DKA with HbA1c in 13.4. No evidence of steroids,nor drinking heavy sodas/juice or eating candy all day, and also no evidence of pancreatitis,pancreatic cancer, SGLT2 use. Lipase normal and CA 19- [address] abdomen pelvis shows1. No evidence of appendicitis, diverticulitis or intestinal obstruction.2. Bilateral fat containing inguinal hernias.3. Stone in the right kidney lower pole. Bilateral kidney cysts.4. Hypodensity in the liver which may be a cyst. Follow-up advised. Patient needs to follow-up with the tie tape machine operator.Patient needs to follow-up with diabetic diet.Discontinued metformin due to decreased any function Status at Discharge Cognitive/behavioral status at discharge: Stable Time Spent with Patient Time attestation: Total time spent providing and/or coordinating discharge services: 45 minutes Exam Narrative: General: Pt is alert awake and in NAD Lungs/Chest: Trachea central Clear BS B/L, No crackles or wheezing. Cardiac: RRR. Normal S1 S2. No murmurs Circulation: Pedal pulses are intact and symmetrical. Abdomen: Normal bowel sounds.. Soft. NT. ND. Extremities: No clubbing, cyanosis or edema. Warm : Reyes in place Neurologic: Follows commands. Moves all 4 extremities PERRL Skin: No Rash DS: Data Data Completed and Pending Labs on day of discharge: Labs from last 24 hours 12/27/24 12/27/24 12/27/24 05:30 04:35 00:45 WBC 5.8 RBC 4.08 L Hgb 12.3 L Hct 36.8 L MCV 90.2 MCH 30.1 MCHC 33.4 RDW 13.7 Plt Count 162 MPV 12.5 H Sodium 137 Potassium 3.5 Chloride 101 Carbon Dioxide 29 Anion Gap 7 BUN 26 H Creatinine 1.47 H Estim Creat Clear Calc 46 Estimated GFR 46 L Glucose 136 H POC Capillary Glucose 145 H 174 H Calcium 8.7 Phosphorus 3.4 Magnesium 1.4 L Total Bilirubin 0.7 AST 19 ALT 15 Alkaline Phosphatase 72 Total Creatine Kinase Total Protein 6.0 L Albumin 3.3 L Ur Random Sodium Urine Creatinine 12/26/24 12/26/24 12/26/24 20:24 15:33 12:19 WBC RBC Hgb Hct MCV MCH MCHC RDW Plt Count MPV Sodium 136 L Potassium 4.0 Chloride 100 Carbon Dioxide 28 Anion Gap 8 BUN 32 H Creatinine 1.63 H Estim Creat Clear Calc 42 Estimated GFR 41 L Glucose 233 H POC Capillary Glucose 238 H Calcium 9.1 Phosphorus Magnesium Total Bilirubin 0.8 AST 26 ALT 18 Alkaline Phosphatase 80 Total Creatine Kinase Total Protein 7.0 Albumin 3.9 Ur Random Sodium 78 Urine Creatinine 133.0 12/26/24 12/26/24 11:27 03:55 WBC RBC Hgb Hct MCV MCH MCHC RDW Plt Count MPV Sodium Potassium Chloride Carbon Dioxide Anion Gap BUN Creatinine Estim Creat Clear Calc Estimated GFR Glucose POC Capillary Glucose 306 H Calcium Phosphorus Magnesium Total Bilirubin AST ALT Alkaline Phosphatase Total Creatine Kinase 117 Total Protein Albumin Ur Random Sodium Urine Creatinine Imaging Radiologist's impression: ITS Impressions Renal Ultrasound 12/26/24 14:27 IMPRESSION: Bilateral renal cysts. Otherwise, no abnormality seen. Discharge Plan Discharge Attending physician on discharge: Axel Carrillo Consulting providers: Benny Morton; Wan Montgomery Discharging Clinician: Axel Carrillo Anticipated Discharge Date/Time: 12/27/24 07:53 Patient Disposition: Home Activity: as tolerated Diet: diabetic Discharge Instructions: Patient needs to follow-up with the tie tape machine operator Patient needs to follow-up with diabetic diet Discontinued metformin due to decreased any function Hypodensity in the liver which may be a cyst. Follow-up advised with Technical Training Manager Patient Instructions: Antibiotic Form, Diabetic Ketoacidosis (DC), Basic Carbohydrate Counting (DC), Diabetes and Nutrition (DC) Patient Language: Indian Stand Alone Forms: General Discharge Information Follow-up/Referrals: Cb Bennett DO [Primary Care Provider] - (Follow-up Insulin-dependent diabetes) Discharge Medications: New (DME) blood-glucose meter [OneTouch Verio Flex meter] [facility] Qty: 1 0RF Rx Instructions: May substitute to in-stock meter and/or covered by insurance. Use As Directed (DME) OneTouch Verio test strips Strip Qty: 1 0RF Rx Instructions: May substitute to in-stock and/or covered by insurance strips. Use As Directed (DME) lancets [OneTouch Delica Plus Lancet] 30 gauge misc Qty: 1 0RF Rx Instructions: May substitute to in-stock and/or covered by insurance lancets. Use As Directed (DME) pen needle, diabetic 32 gauge x 5/32 Needle Qty: 1 0RF Rx Instructions: As Directed insulin glargine [Lantus Solostar U-100 Insulin] 100 unit/mL (3 mL) insulin pen 25 unit subcut QPM Qty: 15 0RF insulin aspart U-100 100 unit/mL (3 mL) insulin pen 5 unit subcut TID Qty: 15 0RF Continued amlodipine 10 mg tablet See Rx Instructions .ROUTE .COMPLEX Qty: 90 3RF Dose Instruction: TAKE 1 TABLET EVERY DAY Rx Instructions: TAKE 1 TABLET EVERY DAY lisinopril 40 mg tablet 40 mg PO DAILY Qty: 90 1RF simvastatin 20 mg tablet 20 mg PO DAILY Qty: 90 1RF tamsulosin 0.4 mg capsule See Rx Instructions .ROUTE .COMPLEX Qty: 90 3RF Dose Instruction: TAKE 1 CAPSULE AT BEDTIME Rx Instructions: TAKE 1 CAPSULE AT BEDTIME hydrochlorothiazide 25 mg tablet 25 mg PO DAILY Qty: 90 3RF allopurinol 100 mg tablet 100 mg PO DAILY Qty: 90 1RF fluticasone propion-salmeterol 250-50 mcg/dose blister with device See Rx Instructions .ROUTE .COMPLEX Qty: 180 3RF Dose Instruction: INHALE 1 PUFF TWICE DAILY Rx Instructions: INHALE 1 PUFF TWICE DAILY Date of admission: 12/25/24 17:29 Primary Care Provider: Cb Bennett Admitting Provider: Bela Wheatley Attending physician on admission: Bela Wheatley Condition: Stable
[2024-12-28 09:57] LABS: CA 19-9 56 U/mL (<34)
--- NOTE | 2025-01-03 10:38 | PCCDE ---
01/03/25 Spoke with Reji marquez who reports doing well. Reports highest glucose reading past week 195 and this was pre-L. This am: 120 Denies questions with insulin dosing. Saw EARLY HEAD START TEACHER at PCP office since DC. Taking insulin dosing as Rx'd on DC with exception of EARLY HEAD START TEACHER at PCP office appt instruction: HOLD the mealtime insulin if glucose below 150 . Pt states didn't take it one time in past couple of days. DSMT/MNT paperwork in progress for outpatient referral. Pt advised to expect call for scheduling later this wk. SHRUTHI.
== END 2024-12-27 13:14 | disposition home or self-care (01) ==
LOC: ANHED 14:53 → ANHICU 19:38 → ANH3MED 12-27 07:53 → ANHICU 12-28 07:04
PROVIDERS: Internal Medicine; Physician Assistant; Admitting Provider Hospitalist; Emergency Provider Student in an Organized Health Care Education/Training Program; PCP Internal Medicine; Visit Provider General Practice
DX: E11.10 Type 2 diabetes mellitus with ketoacidosis without coma (principal); E11.22 Type 2 diabetes mellitus with diabetic chronic kidney disease; I12.9 Hypertensive chronic kidney disease with stage 1 through stage 4 chronic kidney disease, or unspecified chronic kidney disease; N18.32 Chronic kidney disease, stage 3b; N17.9 Acute kidney failure, unspecified; N25.81 Secondary hyperparathyroidism of renal origin; R80.8 Other proteinuria; E55.9 Vitamin D deficiency, unspecified; E87.8 Other disorders of electrolyte and fluid balance, not elsewhere classified; E86.0 Dehydration; N40.0 Benign prostatic hyperplasia without lower urinary tract symptoms; E78.5 Hyperlipidemia, unspecified; J44.9 Chronic obstructive pulmonary disease, unspecified; M10.9 Gout, unspecified; Z79.51 Long term (current) use of inhaled steroids; Z79.899 Other long term (current) drug therapy; Z87.891 Personal history of nicotine dependence; Z96.653 Presence of artificial knee joint, bilateral
CPT/HCPCS: 36415; 74176; 76775; 80048; 80053; 81001; 82010; 82550; 82570; 82803; 82948; 83036; 83690; 83735; 84100; 84300; 84443; 85025; 85027; 86301; 87641; 94640; 96361; 96365; 96366; 96367; 96368; 96372; 96375; 99285; A9270; G0378; J1650; J1815; J3475; J3480; J7030; J7050; J7120

== ENCOUNTER 2025-01-10 09:09 | Outpatient (CLI) | payer MEDICARE, SELFPAY ==
--- NOTE | ~2025-01-10 | US_ITS ---
Limited Abdominal Sonogram: Real-time sonographic imaging of the right upper quadrant was performed. Clinical History: Liver disease Findings: The liver appears heterogeneous/echogenic, with no evidence of solid mass lesion or bile d uct dilatation. Small hepatic cyst present. Main portal vein demonstrates normal direction of flow. T he gallbladder is well distended, and appears normal with no evidence of gallstone or wall thickening . The common bile duct measures 5 mm. The visualized pancreas, aorta, and IVC are unremarkable. Impression: Probable fatty infiltration of liver versus other chronic liver disease. Correlate clinically. Reviewed, dictated and finalized at location . Impression: Probable fatty infiltration of liver versus other chronic liver disease. Correl ate clinically.
== END 2025-01-10 09:10 | disposition home or self-care (01) ==
LOC: MICIMG 09:10
PROVIDERS: PCP Internal Medicine; Visit Provider Nurse Practitioner
DX: K76.9 Liver disease, unspecified (principal)
CPT/HCPCS: 76705

== ENCOUNTER 2025-02-10 14:15 | Outpatient (RCR) | payer MEDICARE, SELFPAY ==
[2025-02-08 09:30] VITALS: BMI 31.1
[2025-02-08 09:33] VITALS: BMI 31.1
== END 2025-03-30 10:57 | disposition home or self-care (01) ==
LOC: ANHDMC 14:15
PROVIDERS: PCP Internal Medicine; Visit Provider Internal Medicine
DX: E11.22 Type 2 diabetes mellitus with diabetic chronic kidney disease (principal); Z71.89 Other specified counseling
CPT/HCPCS: 97802; G0108